=== PATIENT | male | born 1955 | race Caucasian/White ===

== ENCOUNTER 2019-01-03 08:58 | Inpatient (IN) | payer MEDICARE, OTHER ==
[~2019-01-03] VITALS: Ht 190.5 cm; Wt 131.7 kg
[~2019-01-03 08:58] MED LIST: AMLO10TA8 PO; AMOX1TAB11 PO; BUDE10.2 IH; BYSTOLIC5 MG PO; CLOP75TA PO; CRESTOR20 MG PO; METO-269 PO; TIOT18CA IH; VALS1TAB22 PO
[2019-01-03] MEDS ORDERED: ALBUTEROL SULFATE 2.5 MG/3 ML NEBU. NEB ONE (09:30)
[2019-01-03] MEDS ORDERED: IV NORMAL SALINE 1000ML BAG 1,000 ML IV ONE (09:30)
[2019-01-03] MEDS ORDERED: methylPREDNISolone SOD SUCC PF 125 MG/2 ML VIAL. IV ONE (09:30)
--- NOTE | 2019-01-03 09:51 | PHYS DOC ---
Past Medical History Past Medical History: CAD, COPD, High Cholesterol, Hypertension, Pneumonia, Other Additional Past Medical Histor: R SIDE POOR VASCULAR PERFUSION Past Surgical History: Other Additional Past Surgical Histo: CARDIAC STENT, AAA Additional Information: Nonsmoking Alcohol Use: None Drug Use: None Adult General Chief Complaint Chief Complaint: shortness of breath HPI HPI Patient is a 63 year old male who brought in by EMS because of shortness of breath. Patient states he had seasonal allergy and had intermittent episodes of dry cough and shortness of breath for the last 2 weeks that getting worse today. Patient states he had O2 sat of low 80s and in one 55% at home pulse oximeter and took 2 L of his CPAP oxygen with improvement of his oxygen to 80s. [place] [employer] and EMS gave patient a DuoNeb with improvement of O2 sat to less than 95%. Patient had O2 sat of 77% at arrival to ER with mild respiratory distress. Patient denies fever, chest pain, leg swelling. Patient had previous episodes of similar to retention and COPD exacerbation with hospitalization and having BiPAP without history of intubation. Review of Systems Review of Systems Constitutional: Denies fever or chills [] Eyes: Denies change in visual acuity, redness, or eye pain [] HENT: Denies nasal congestion or sore throat [] Respiratory: Cough and shortness of breath Cardiovascular: No additional information not addressed in HPI [] GI: Denies abdominal pain, nausea, vomiting, diarrhea [] : Denies dysuria or hematuria [] Musculoskeletal: Denies back pain or joint pain [] Integument: Denies rash or skin lesions [] Neurologic: Denies headache, focal weakness or sensory changes [] Endocrine: Denies polyuria or polydipsia [] All other systems were reviewed and found to be within normal limits, except as documented in this note. Current Medications Current Medications Current Medications Medications (Trade) Dose Ordered Sig/Carlie Start Time Stop Time Status Last Admin Dose Admin Albuterol Sulfate (Ventolin Neb Soln) 2.5 mg 1X ONCE 01/03/19 09:30 01/03/19 09:31 DC 01/03/19 09:34 2.5 MG Methylprednisolone Sodium Succinate (SOLU-Medrol 125MG VIAL) 125 mg 1X ONCE 01/03/19 09:30 01/03/19 09:31 DC 01/03/19 10:18 125 MG Sodium Chloride 1,000 ml @ 1,000 mls/hr 1X ONCE 01/03/19 09:30 01/03/19 10:29 DC 01/03/19 10:16 1,000 MLS/HR Allergies Allergies Allergies Coded Allergies Type Severity Reaction Last Updated Verified No Known Drug Allergies 02/01/16 No Physical Exam Physical Exam Constitutional: Well developed, well nourished, moderate distress, non-toxic appearance. [] HENT: Normocephalic, atraumatic, oropharynx dry, no oral exudates, nose normal. [] Eyes: PERRLA, EOMI, conjunctiva normal, no discharge. [] Neck: Normal range of motion, no tenderness, supple, no stridor. [] Cardiovascular: Tachycardia, no murmur [] Lungs & Thorax: Abdomen: Bowel sounds normal, soft, no tenderness, no masses, no pulsatile masses. [] Skin: Warm, dry, no erythema, no rash. [] Back: No tenderness, no CVA tenderness. [] Extremities: No tenderness, no cyanosis, no clubbing, ROM intact, trace edema. [] Neurologic: Alert and oriented X 3, normal motor function, normal sensory function, no focal deficits noted. [] Psychologic: Affect normal, judgement normal, mood normal. [] Current Patient Data Vital Signs Vital Signs Date Time Temp Pulse Resp B/P (MAP) Pulse Ox O2 Delivery O2 Flow Rate FiO2 01/03/19 09:46 60 22 118/56 (76) 87 Venturi Mask 15.0 01/03/19 09:15 99.3 99.3 Lab Values Laboratory Tests Test 01/03/19 09:30 01/03/19 10:00 White Blood Count 7.6 x10^3/uL (4.0-11.0) Red Blood Count 6.39 x10^6/uL (4.30-5.70) H Hemoglobin 16.5 g/dL (13.0-17.5) Hematocrit 51.3 % (39.0-53.0) Mean Corpuscular Volume 80 fL (79-100) Mean Corpuscular Hemoglobin 26 pg (25-35) Mean Corpuscular Hemoglobin Concent 32 g/dL (31-37) Red Cell Distribution Width 17.3 % (11.5-14.5) H Platelet Count 133 x10^3/uL (140-400) L Neutrophils (%) (Auto) 78 % (31-73) H Lymphocytes (%) (Auto) 10 % (24-48) L Monocytes (%) (Auto) 12 % (0-9) H Eosinophils (%) (Auto) 0 % (0-3) Basophils (%) (Auto) 1 % (0-3) Neutrophils # (Auto) 6.0 x10^3uL (1.8-7.7) Lymphocytes # (Auto) 0.7 x10^3/uL (1.0-4.8) L Monocytes # (Auto) 0.9 x10^3/uL (0.0-1.1) Eosinophils # (Auto) 0.0 x10^3/uL (0.0-0.7) Basophils # (Auto) 0.0 x10^3/uL (0.0-0.2) D-Dimer (Simin) 0.40 ug/mlFEU (0.00-0.50) Sodium Level 134 mmol/L (136-145) L Potassium Level 4.2 mmol/L (3.5-5.1) Chloride Level 95 mmol/L (98-107) L Carbon Dioxide Level 36 mmol/L (21-32) H Anion Gap 3 (6-14) L Blood Urea Nitrogen 15 mg/dL (8-26) Creatinine 0.8 mg/dL (0.7-1.3) Estimated GFR (Cockcroft-Gault) 97.0 BUN/Creatinine Ratio 19 (6-20) Glucose Level 109 mg/dL (70-99) H Lactic Acid Level 1.0 mmol/L (0.4-2.0) Calcium Level 8.4 mg/dL (8.5-10.1) L Total Bilirubin 0.7 mg/dL (0.2-1.0) Aspartate Amino Transferase (AST) 10 U/L (15-37) L Alanine Aminotransferase (ALT) 12 U/L (16-63) L Alkaline Phosphatase 56 U/L (46-116) Creatine Kinase 37 U/L (39-308) L Troponin I Quantitative 0.037 ng/mL (0.000-0.055) FQ-Str-B-Type Natriuretic Peptide 1338 pg/mL (0-124) H Total Protein 6.9 g/dL (6.4-8.2) Albumin 2.8 g/dL (3.4-5.0) L Albumin/Globulin Ratio 0.7 (1.0-1.7) L O2 Saturation 91 % (92-99) L Arterial Blood pH 7.37 (7.35-7.45) Arterial Blood pCO2 at Patient Temp 67 mmHg (35-46) *H Arterial Blood pO2 at Patient Temp 63 mmHg (65-108) L Arterial Blood HCO3 38 mmol/L (21-28) H Arterial Blood Base Excess 10 mmol/L (-3-3) H FiO2 50 Laboratory Tests 01/03/19 09:30 Laboratory Tests 01/03/19 09:30 EKG EKG EKG interpreted by me. EKG at 0 948 showed normal sinus rhythm at rate of 60, normal IN and QT intervals, PVCs, left atrial abnormalities, poor R-wave progress in anteroseptal leads, no acute ST and T-wave abnormalities Radiology/Procedures Radiology/Procedures [facility] [address] [place], [place] [id number] IMAGING REPORT Signed PATIENT: SOREN PASCUAL ACCOUNT: [id number] : 1955 LOCATION: ER AGE: 63 SEX: M EXAM STATUS: PRE ER ORD. PHYSICIAN: MARGUERITE LYNNE MD REASON: shortness of breath PROCEDURE: PORTABLE CHEST 1V AP portable chest radiograph 01/03/2019 Clinical History: Shortness of breath. An AP erect portable digital radiograph of the chest was obtained. Comparison study is dated 02/04/2016. The cardiac silhouette is mildly enlarged. The thoracic aorta is tortuous. Atherosclerotic calcification of the thoracic aorta is seen. Mild elevation of the right hemidiaphragm is unchanged. A patchy area of subsegmental atelectasis and/or infiltrate is seen involving the right lower lobe. The left lung is clear. No pneumothorax or pleural effusion is noted. Degenerative changes are seen involving the thoracic spine. IMPRESSION: Patchy right lower lobe subsegmental atelectasis and/or infiltrate. Electronically signed by: Anton Patrick MD (01/03/2019 9:52 AM) [id number] DICTATED and SIGNED BY: ANTON PATRICK MD DATE: 01/03/19 0952 Course & Med Decision Making Course & Med Decision Making Pertinent Labs and Imaging studies reviewed. (See chart for details) Evolution of patient in ER showed 63-year-old male patient with history of COPD brought in because of shortness of breath. Patient had hypoxia that improved with nonrebreathing mask and BiPAP. Chest x-ray showed small infiltration. Patient requiring admission for further evaluation and treatment. Discussed with Dr. Wahl who is in agreement with admission. Discussed findings and plan with patient and family, who acknowledge understanding and agreement. Dragon Disclaimer Dragon Disclaimer This electronic medical record was generated, in whole or in part, using a voice recognition dictation system. Departure Departure Impression: Primary Impression: Acute respiratory distress Additional Impressions: COPD exacerbation Hypoxemia CO2 retention CAP (community acquired pneumonia) Disposition: ADMITTED INPATIENT (@1052) Admitting Physician: Terrie Wahl (accepted admission at 1050) Condition: GUARDED Referrals: JORGE ALBERTO CORNELIUS MD (PCP) Critical Care Time Critical care time was65 minutes exclusive of procedures. Problem Qualifiers Additional Impressions: CAP (community acquired pneumonia) Laterality: unspecified laterality Qualified Codes: J18.9 - Pneumonia, unspecified organism MARGUERITE LYNNE MD Jan 03, 2019 09:51
--- NOTE | 2019-01-03 09:55 | RAD ---
AP portable chest radiograph 01/03/2019 Clinical History: Shortness of breath. An AP erect portable digital radiograph of the chest was obtained. Comparison study is dated 02/04/2016. The cardiac silhouette is mildly enlarged. The thoracic aorta is tortuous. Atherosclerotic calcification of the thoracic aorta is seen. Mild elevation of the right hemidiaphragm is unchanged. A patchy area of subsegmental atelectasis and/or infiltrate is seen involving the right lower lobe. The left lung is clear. No pneumothorax or pleural effusion is noted. Degenerative changes are seen involving the thoracic spine. IMPRESSION: Patchy right lower lobe subsegmental atelectasis and/or infiltrate. Electronically signed by: Anton Patrick MD (01/03/2019 9:52 AM) [id number]
[2019-01-03 10:02] LABS: CALCIUM 8.4 mg/dL (8.5-10.1); CREATININE 0.8 mg/dL (0.7-1.3); POTASSIUM 4.2 mmol/L (3.5-5.1)
[2019-01-03 10:08] LABS: ALBUMIN 2.8 g/dL (3.4-5.0); ALBUMIN/GLOBULIN RATIO 0.7 (1.0-1.7); BASO % 1 % (0-3); EOS % 0 % (0-3); HEMATOCRIT 51.3 % (39.0-53.0); HEMOGLOBIN 16.5 g/dL (13.0-17.5); LYMPH # 0.7 x10^3/uL (1.0-4.8); LYMPH % 10 % (24-48); MEAN CORPUSCULAR HEMOGLOBIN 26 pg (25-35); MEAN CORPUSCULAR HGB CONC 32 g/dL (31-37); MEAN CORPUSCULAR VOLUME 80 fL (79-100); MONO # 0.9 x10^3/uL (0.0-1.1); MONO % 12 % (0-9); NEUT % 78 % (31-73); PLATELET COUNT 133 x10^3/uL (140-400); RED BLOOD COUNT 6.39 x10^6/uL (4.30-5.70); RED CELL DISTRIBUTION WIDTH 17.3 % (11.5-14.5); TOTAL BILIRUBIN 0.7 mg/dL (0.2-1.0); TOTAL PROTEIN 6.9 g/dL (6.4-8.2); WHITE BLOOD COUNT 7.6 x10^3/uL (4.0-11.0)
[2019-01-03 10:12] LABS: BASE EXCESS ABG 10 mmol/L (-3-3); HCO3 ABG 38 mmol/L (21-28); PO2 ABG 63 mmHg (65-108); SAT O2 ABG 91 % (92-99)
[2019-01-03 10:13] LABS: FIO2 ABG 50; PCO2 ABG 67 mmHg (35-46)
[2019-01-03] MEDS: IV NORMAL SALINE 1000ML BAG 1,000 ML IV SCH ×2 (10:56→20:27)
[2019-01-03] MEDS ORDERED: AZITHRMYCN 500MG IVPB FOR OMNI 250 ML IV ONE (11:15)
[2019-01-03] MEDS ORDERED: cefTRIAXone IV Push 1 GM VIAL. IVP ONE (11:15)
[2019-01-03] MEDS ORDERED: guaiFENesin DM 200MG/20MG 10 ML SYRUP PO PRN (12:15)
[2019-01-03] MEDS: IPRATRPIUM/ALBUTEROL 0.5/2.5MG 3 ML NEBU. NEB SCH ×3 (12:31→19:31)
[2019-01-03 12:32] VITALS: BP 134/85
[2019-01-03] MEDS ORDERED: APIX5TAB PO (12:37)
[2019-01-03] MEDS ORDERED: ASPI-630 PO (12:37)
[2019-01-03] MEDS ORDERED: CRESTOR40 MG PO (12:37)
[2019-01-03] MEDS ORDERED: AMLO10TA8 PO (12:37)
[2019-01-03] MEDS ORDERED: LOSA1TAB22 PO (12:37)
--- NOTE | 2019-01-03 12:56 | EKG ---
[facility] [address] [place] [id number] Test Date: 2019-01-03 Test Time: 09:48:14 Pat Name: SOREN PASCUAL Department: Room: 648 1 Gender: M Private Inquiry Agent: : 1955 Requested By: MARGUERITE LYNNE Order Number: [id number] Reading MD: Khurram Kruger Measurements Intervals [place] Rate: 60 P: 41 WA: 214 QRS: 65 QRSD: 92 T: 61 QT: 408 QTc: 408 Interpretive Statements SINUS RHYTHM QRS(T) CONTOUR ABNORMALITY CONSIDER ANTEROSEPTAL MYOCARDIAL DAMAGE CONSIDER INFERIOR MYOCARDIAL DAMAGE Electronically Signed On 01-10-2019 11:37:01 CDT by Khurram Kruger
[2019-01-03] MEDS: LOSARTAN POTASSIUM 50 MG TABLET. PO SCH (13:00)
[2019-01-03] MEDS: METOPROLOL TART IMMED RELEASE 25 MG TABLET. PO SCH ×2 (13:00→20:25)
[2019-01-03] MEDS ORDERED: amLODIPine BESYLATE 10 MG TABLET PO SCH (13:00)
[2019-01-03] MEDS: hydroCHLOROthiazide 25 MG TABLET PO SCH (13:00)
--- NOTE | 2019-01-03 13:02 | PDOC1 ---
History and Physical Date of Admission Date of Admission DATE: 01/03/19 TIME: 12:58 Identification/Chief Complaint Chief Complaint SOA could not breathe Source Source: Caregiver, Chart review, Patient History of Present Illness History of Present Illness Very pleasant 63-year-old white male, quit smoking 10 years ago, previously was 1 or more than 1 pack a day. Known patient of Dr. Ruvalcaba. Known COPD with EVA and CPAP 2 Cms water at home. Comes in because of SOA, could not breathe. He thinks when he mowed the lawn yesterday that triggered his attack. He's not smoking anymore. No recent sick contacts or travels. 80% O2 sats by EMS and hypoxic at the ER. PCO2 67 with normal pH. Labs unremarkable except for mild hyponatremia 134. HAs rescue inhalers at home and ran out. Diminished breath sounds on auscultation but feeling much better. PCP Dr. Quinn Past Medical History Cardiovascular: CAD, HTN, Hyperlipidemia, Pulmonary hypertension, Other Pulmonary: Bronchitis, COPD Past Surgical History Past Surgical History: No pertinent history Family History Family History: Hypertension Social History Smoke: Quit ALCOHOL: none Drugs: None Current Problem List Problem List Problems Medical Problems: (1) Acute respiratory distress Status: Acute (2) CAP (community acquired pneumonia) Status: Acute (3) CO2 retention Status: Acute (4) COPD exacerbation Status: Acute (5) Hypoxemia Status: Acute Current Medications Current Medications Current Medications Albuterol Sulfate (Ventolin Neb Soln) 2.5 mg 1X ONCE NEB Last administered on 01/03/19at 09:34; Start 01/03/19 at 09:30; Stop 01/03/19 at 09:31; Status DC Methylprednisolone Sodium Succinate (SOLU-Medrol 125MG VIAL) 125 mg 1X ONCE IV Last administered on 01/03/19at 10:18; Start 01/03/19 at 09:30; Stop 01/03/19 at 09:31; Status DC Sodium Chloride 1,000 ml @ 1,000 mls/hr 1X ONCE IV Last administered on 01/03/19at 10:16; Start 01/03/19 at 09:30; Stop 01/03/19 at 10:29; Status DC Sodium Chloride 1,000 ml @ 150 mls/hr Q6H40M IV ; Start 01/03/19 at 10:56; Stop 01/04/19 at 10:55 Ceftriaxone Sodium (Rocephin) 1 gm 1X ONCE IVP Last administered on 01/03/19at 11:41; Start 01/03/19 at 11:15; Stop 01/03/19 at 11:16; Status DC Azithromycin 250 ml @ 250 mls/hr 1X ONCE IV Last administered on 01/03/19at 11:41; Start 01/03/19 at 11:15; Stop 01/03/19 at 12:14; Status DC Amlodipine Besylate (Norvasc) 5 mg DAILY PO ; Start 01/03/19 at 13:00 Metoprolol Tartrate (Lopressor) 25 mg BID PO ; Start 01/03/19 at 13:00 Atorvastatin Calcium (Lipitor) 80 mg QHS PO ; Start 01/03/19 at 21:00 Losartan Potassium (Cozaar) 100 mg DAILY PO ; Start 01/03/19 at 13:00 Albuterol/ Ipratropium (Duoneb) 3 ml RTQID NEB Last administered on 01/03/19at 12:31; Start 01/03/19 at 12:30 Benzonatate (Tessalon Perle) 100 mg [id number] PO ; Start 01/03/19 at 14:00 Guaifenesin (Robitussin Dm) 10 ml PRN Q6HRS PRN PO COUGH; Start 01/03/19 at 12:15 Hydrochlorothiazide (Hydrodiuril) 25 mg DAILY PO ; Start 01/03/19 at 13:00 Active Scripts Active Amox Tr-K Clv 875-125 Mg Tab (Amoxicillin/Potassium Clav) 1 Each Tablet 1 Tab PO BID Reported Aspirin 81 Mg Tab.chew 1 Tab PO DAILY Losartan-Hctz 100-25 Mg Tab (Losartan/Hydrochlorothiazide) 1 Each Tablet 1 Tab PO DAILY Eliquis (Apixaban) 5 Mg Tablet 5 Mg PO BID Crestor (Rosuvastatin Calcium) 40 Mg Tablet 1 Tab PO DAILY Amlodipine Besylate 10 Mg Tablet 10 Mg PO DAILY Allergies Allergies: Coded Allergies: No Known Drug Allergies (Unverified , 02/01/16) ROS Review of System As per history of present illness, the rest of ROS 14 point negative Physical Exam General: No acute distress HEENT: Atraumatic, PERRLA, EOMI Lungs: Normal air movement, Other (symmetrical chest expansion no crackles, minimal wheezing, diminished breath sounds) Heart: S1S2, RRR, no thrills, no rubs, no gallops, no murmurs Cardiovascular: S1, S2 Breasts: Normal, Rt breast nml w/o mass, Lt breast nml w/o mass, Nipples normal Abdomen: Normal bowel sounds, Soft, No tenderness, No hepatosplenomegaly, No masses Male Genitals Exam: normal genitalia, normal prostate Rectal Exam: not examined PELVIC: Nml ext genitalia Extremities: No clubbing, No cyanosis, No edema, Normal pulses, No tenderness/swelling Skin: No rashes, No breakdown, No significant lesion Neuro: Normal gait, Normal speech, Strength at 5/5 X4 ext, Normal tone, Sensation intact, Cranial nerves 3-12 NL, Reflexes 2+ Psych/Mental Status: Mental status NL, Mood NL Vitals Vitals Vital Signs Date Time Temp Pulse Resp B/P (MAP) Pulse Ox O2 Delivery O2 Flow Rate FiO2 01/03/19 12:32 98.4 61 20 134/85 (101) 85 Simple Mask 7.0 98.4 Labs Labs Laboratory Tests Test 01/03/19 09:30 01/03/19 10:00 White Blood Count 7.6 x10^3/uL (4.0-11.0) Red Blood Count 6.39 x10^6/uL (4.30-5.70) Hemoglobin 16.5 g/dL (13.0-17.5) Hematocrit 51.3 % (39.0-53.0) Mean Corpuscular Volume 80 fL (79-100) Mean Corpuscular Hemoglobin 26 pg (25-35) Mean Corpuscular Hemoglobin Concent 32 g/dL (31-37) Red Cell Distribution Width 17.3 % (11.5-14.5) Platelet Count 133 x10^3/uL (140-400) Neutrophils (%) (Auto) 78 % (31-73) Lymphocytes (%) (Auto) 10 % (24-48) Monocytes (%) (Auto) 12 % (0-9) Eosinophils (%) (Auto) 0 % (0-3) Basophils (%) (Auto) 1 % (0-3) Neutrophils # (Auto) 6.0 x10^3uL (1.8-7.7) Lymphocytes # (Auto) 0.7 x10^3/uL (1.0-4.8) Monocytes # (Auto) 0.9 x10^3/uL (0.0-1.1) Eosinophils # (Auto) 0.0 x10^3/uL (0.0-0.7) Basophils # (Auto) 0.0 x10^3/uL (0.0-0.2) D-Dimer (Simin) 0.40 ug/mlFEU (0.00-0.50) Sodium Level 134 mmol/L (136-145) Potassium Level 4.2 mmol/L (3.5-5.1) Chloride Level 95 mmol/L (98-107) Carbon Dioxide Level 36 mmol/L (21-32) Anion Gap 3 (6-14) Blood Urea Nitrogen 15 mg/dL (8-26) Creatinine 0.8 mg/dL (0.7-1.3) Estimated GFR (Cockcroft-Gault) 97.0 BUN/Creatinine Ratio 19 (6-20) Glucose Level 109 mg/dL (70-99) Lactic Acid Level 1.0 mmol/L (0.4-2.0) Calcium Level 8.4 mg/dL (8.5-10.1) Total Bilirubin 0.7 mg/dL (0.2-1.0) Aspartate Amino Transf (AST/SGOT) 10 U/L (15-37) Alanine Aminotransferase (ALT/SGPT) 12 U/L (16-63) Alkaline Phosphatase 56 U/L (46-116) Creatine Kinase 37 U/L (39-308) Troponin I Quantitative 0.037 ng/mL (0.000-0.055) ET-Cxd-X-Type Natriuretic Peptide 1338 pg/mL (0-124) Total Protein 6.9 g/dL (6.4-8.2) Albumin 2.8 g/dL (3.4-5.0) Albumin/Globulin Ratio 0.7 (1.0-1.7) O2 Saturation 91 % (92-99) Arterial Blood pH 7.37 (7.35-7.45) Arterial Blood pCO2 at Patient Temp 67 mmHg (35-46) Arterial Blood pO2 at Patient Temp 63 mmHg (65-108) Arterial Blood HCO3 38 mmol/L (21-28) Arterial Blood Base Excess 10 mmol/L (-3-3) FiO2 50 Laboratory Tests Test 01/03/19 09:30 01/03/19 10:00 White Blood Count 7.6 x10^3/uL (4.0-11.0) Red Blood Count 6.39 x10^6/uL (4.30-5.70) Hemoglobin 16.5 g/dL (13.0-17.5) Hematocrit 51.3 % (39.0-53.0) Mean Corpuscular Volume 80 fL (79-100) Mean Corpuscular Hemoglobin 26 pg (25-35) Mean Corpuscular Hemoglobin Concent 32 g/dL (31-37) Red Cell Distribution Width 17.3 % (11.5-14.5) Platelet Count 133 x10^3/uL (140-400) Neutrophils (%) (Auto) 78 % (31-73) Lymphocytes (%) (Auto) 10 % (24-48) Monocytes (%) (Auto) 12 % (0-9) Eosinophils (%) (Auto) 0 % (0-3) Basophils (%) (Auto) 1 % (0-3) Neutrophils # (Auto) 6.0 x10^3uL (1.8-7.7) Lymphocytes # (Auto) 0.7 x10^3/uL (1.0-4.8) Monocytes # (Auto) 0.9 x10^3/uL (0.0-1.1) Eosinophils # (Auto) 0.0 x10^3/uL (0.0-0.7) Basophils # (Auto) 0.0 x10^3/uL (0.0-0.2) D-Dimer (Simin) 0.40 ug/mlFEU (0.00-0.50) Sodium Level 134 mmol/L (136-145) Potassium Level 4.2 mmol/L (3.5-5.1) Chloride Level 95 mmol/L (98-107) Carbon Dioxide Level 36 mmol/L (21-32) Anion Gap 3 (6-14) Blood Urea Nitrogen 15 mg/dL (8-26) Creatinine 0.8 mg/dL (0.7-1.3) Estimated GFR (Cockcroft-Gault) 97.0 BUN/Creatinine Ratio 19 (6-20) Glucose Level 109 mg/dL (70-99) Lactic Acid Level 1.0 mmol/L (0.4-2.0) Calcium Level 8.4 mg/dL (8.5-10.1) Total Bilirubin 0.7 mg/dL (0.2-1.0) Aspartate Amino Transf (AST/SGOT) 10 U/L (15-37) Alanine Aminotransferase (ALT/SGPT) 12 U/L (16-63) Alkaline Phosphatase 56 U/L (46-116) Creatine Kinase 37 U/L (39-308) Troponin I Quantitative 0.037 ng/mL (0.000-0.055) LK-Xxr-Z-Type Natriuretic Peptide 1338 pg/mL (0-124) Total Protein 6.9 g/dL (6.4-8.2) Albumin 2.8 g/dL (3.4-5.0) Albumin/Globulin Ratio 0.7 (1.0-1.7) O2 Saturation 91 % (92-99) Arterial Blood pH 7.37 (7.35-7.45) Arterial Blood pCO2 at Patient Temp 67 mmHg (35-46) Arterial Blood pO2 at Patient Temp 63 mmHg (65-108) Arterial Blood HCO3 38 mmol/L (21-28) Arterial Blood Base Excess 10 mmol/L (-3-3) FiO2 50 VTE Prophylaxis Ordered VTE Prophylaxis Devices: Yes VTE Pharmacological Prophylaxi: Yes Assessment/Plan Assessment/Plan CO PD exacerbation Previous smoker quit 10 years ago Right lower lobe haziness vs atelectasis-treat with abx Mild hyponatremia 134 in a COPDer EVA on CPAP at night at home PLAN: ABX, cough nebs, DuoNeb's, steroids Pulmo consult Reconcile home meds agreeable to plan of care FULL code ASHLEY WALKER MD Jan 03, 2019 13:01
[2019-01-03] MEDS ORDERED: CARV12.511 PO (13:06)
[2019-01-03] MEDS ORDERED: cloNIDine HCL 0.1 MG TABLET PO PRN (13:15)
[2019-01-03] MEDS ORDERED: TEMAZEPAM 7.5 MG CAPSULE PO PRN (13:15)
[2019-01-03] MEDS: BENZONATATE 100 MG CAPSULE. PO SCH ×2 (14:00→20:28)
[2019-01-03] MEDS: methylPREDNISolone SOD SUCC PF 40 MG/ML VIAL. IV SCH ×2 (14:08→20:31)
[2019-01-03 15:00] VITALS: BP 117/53
[2019-01-03] MEDS: CARVEDILOL 12.5 MG TABLET. PO SCH (17:13)
[2019-01-03 19:39] VITALS: BP 124/51
[2019-01-03] MEDS: APIXABAN 5 MG TABLET. PO SCH (20:28)
[2019-01-03] MEDS: DOXYCYCLINE HYCLATE 100 MG TABLET PO SCH (20:29)
[2019-01-03] MEDS: MONTELUKAST SODIUM 10 MG TABLET. PO SCH (20:29)
[2019-01-03] MEDS: ATORVASTATIN CALCIUM 40 MG TABLET. PO SCH (20:29)
[2019-01-03 23:27] VITALS: BP 110/32
[2019-01-04 03:08] VITALS: BP 131/42
[2019-01-04] MEDS: IV NORMAL SALINE 1000ML BAG 1,000 ML IV SCH (04:41)
[2019-01-04] MEDS: methylPREDNISolone SOD SUCC PF 40 MG/ML VIAL. IV SCH ×3 (04:42→21:06)
[2019-01-04 07:00] VITALS: BP 141/70
[2019-01-04] MEDS: IPRATRPIUM/ALBUTEROL 0.5/2.5MG 3 ML NEBU. NEB SCH ×4 (07:42→20:03)
[2019-01-04 08:50] LABS: BASE EXCESS ABG 6 mmol/L (-3-3); HCO3 ABG 33 mmol/L (21-28); PCO2 ABG 58 mmHg (35-46); PO2 ABG 64 mmHg (65-108); SAT O2 ABG 92 % (92-99)
[2019-01-04 08:55] LABS: FIO2 ABG 40
[2019-01-04] MEDS ORDERED: NON FORMULARY ITEM (Rosuvastatin Calcium (Crestor) 1 TAB) PO SCH (09:00)
[2019-01-04] MEDS ORDERED: hydroCHLOROthiazide 25 MG TABLET PO SCH (09:00)
[2019-01-04] MEDS ORDERED: LOSARTAN POTASSIUM 50 MG TABLET. PO SCH (09:00)
[2019-01-04] MEDS: CARVEDILOL 12.5 MG TABLET. PO SCH ×2 (09:09→16:50)
[2019-01-04] MEDS: LOSARTAN POTASSIUM 50 MG TABLET. PO SCH (09:09)
[2019-01-04] MEDS: ASPIRIN CHEWABLE 81 MG TABLET. PO SCH (09:09)
[2019-01-04] MEDS: hydroCHLOROthiazide 25 MG TABLET PO SCH (09:10)
[2019-01-04] MEDS: METOPROLOL TART IMMED RELEASE 25 MG TABLET. PO SCH ×2 (09:10→21:05)
[2019-01-04] MEDS: APIXABAN 5 MG TABLET. PO SCH ×2 (09:10→21:05)
[2019-01-04] MEDS: DOXYCYCLINE HYCLATE 100 MG TABLET PO SCH ×2 (09:11→21:05)
[2019-01-04] MEDS: amLODIPine BESYLATE 10 MG TABLET PO SCH (09:11)
[2019-01-04] MEDS: BENZONATATE 100 MG CAPSULE. PO SCH ×4 (09:11→21:05)
--- NOTE | 2019-01-04 10:33 | PDOC ---
PULMONARY PROGRESS NOTES Subjective PT FEELS BETTER OFF BIPAP SINCE THIS AM Vitals Vital Signs Date Time Temp Pulse Resp B/P (MAP) Pulse Ox O2 Delivery O2 Flow Rate FiO2 01/04/19 09:11 68 141/70 01/04/19 07:42 94 Nasal Cannula 5.0 01/04/19 07:00 98.5 18 98.5 ROS: No Nausea, No Chest Pain, No Abdominal Pain, No Increase Cough General: Alert, Oriented X4, No acute distress Lungs: Crackles Cardiovascular: S1, S2 Abdomen: Soft, Non-tender Neuro Exam: Alert Extremities: No Edema Labs Laboratory Tests Test 01/03/19 09:30 01/03/19 10:00 01/04/19 08:40 White Blood Count 7.6 x10^3/uL (4.0-11.0) Red Blood Count 6.39 x10^6/uL (4.30-5.70) Hemoglobin 16.5 g/dL (13.0-17.5) Hematocrit 51.3 % (39.0-53.0) Mean Corpuscular Volume 80 fL (79-100) Mean Corpuscular Hemoglobin 26 pg (25-35) Mean Corpuscular Hemoglobin Concent 32 g/dL (31-37) Red Cell Distribution Width 17.3 % (11.5-14.5) Platelet Count 133 x10^3/uL (140-400) Neutrophils (%) (Auto) 78 % (31-73) Lymphocytes (%) (Auto) 10 % (24-48) Monocytes (%) (Auto) 12 % (0-9) Eosinophils (%) (Auto) 0 % (0-3) Basophils (%) (Auto) 1 % (0-3) Neutrophils # (Auto) 6.0 x10^3uL (1.8-7.7) Lymphocytes # (Auto) 0.7 x10^3/uL (1.0-4.8) Monocytes # (Auto) 0.9 x10^3/uL (0.0-1.1) Eosinophils # (Auto) 0.0 x10^3/uL (0.0-0.7) Basophils # (Auto) 0.0 x10^3/uL (0.0-0.2) D-Dimer (Simin) 0.40 ug/mlFEU (0.00-0.50) Sodium Level 134 mmol/L (136-145) Potassium Level 4.2 mmol/L (3.5-5.1) Chloride Level 95 mmol/L (98-107) Carbon Dioxide Level 36 mmol/L (21-32) Anion Gap 3 (6-14) Blood Urea Nitrogen 15 mg/dL (8-26) Creatinine 0.8 mg/dL (0.7-1.3) Estimated GFR (Cockcroft-Gault) 97.0 BUN/Creatinine Ratio 19 (6-20) Glucose Level 109 mg/dL (70-99) Lactic Acid Level 1.0 mmol/L (0.4-2.0) Calcium Level 8.4 mg/dL (8.5-10.1) Total Bilirubin 0.7 mg/dL (0.2-1.0) Aspartate Amino Transf (AST/SGOT) 10 U/L (15-37) Alanine Aminotransferase (ALT/SGPT) 12 U/L (16-63) Alkaline Phosphatase 56 U/L (46-116) Creatine Kinase 37 U/L (39-308) Troponin I Quantitative 0.037 ng/mL (0.000-0.055) QV-Ztm-M-Type Natriuretic Peptide 1338 pg/mL (0-124) Total Protein 6.9 g/dL (6.4-8.2) Albumin 2.8 g/dL (3.4-5.0) Albumin/Globulin Ratio 0.7 (1.0-1.7) O2 Saturation 91 % (92-99) 92 % (92-99) Arterial Blood pH 7.37 (7.35-7.45) 7.38 (7.35-7.45) Arterial Blood pCO2 at Patient Temp 67 mmHg (35-46) 58 mmHg (35-46) Arterial Blood pO2 at Patient Temp 63 mmHg (65-108) 64 mmHg (65-108) Arterial Blood HCO3 38 mmol/L (21-28) 33 mmol/L (21-28) Arterial Blood Base Excess 10 mmol/L (-3-3) 6 mmol/L (-3-3) FiO2 50 40 Laboratory Tests Test 01/04/19 08:40 O2 Saturation 92 % (92-99) Arterial Blood pH 7.38 (7.35-7.45) Arterial Blood pCO2 at Patient Temp 58 mmHg (35-46) Arterial Blood pO2 at Patient Temp 64 mmHg (65-108) Arterial Blood HCO3 33 mmol/L (21-28) Arterial Blood Base Excess 6 mmol/L (-3-3) FiO2 40 Medications Active Scripts Medications Dose Route/Sig Max Daily Dose Days Date Category Carvedilol (Carvedilol) 12.5 Mg Tablet 18.75 Mg PO BIDWMEALS 01/03/19 Reported Aspirin 81 Mg Tab.chew 1 Tab PO DAILY 01/03/19 Reported Losartan-Hctz 100-25 Mg Tab (Losartan/Hydrochlorothiazide) 1 Each Tablet 1 Tab PO DAILY 01/03/19 Reported Eliquis (Apixaban) 5 Mg Tablet 5 Mg PO BID 01/03/19 Reported Crestor (Rosuvastatin Calcium) 40 Mg Tablet 1 Tab PO DAILY 01/03/19 Reported Amlodipine Besylate 10 Mg Tablet 10 Mg PO DAILY 01/03/19 Reported Amox Tr-K Clv 875-125 Mg Tab (Amoxicillin/Potassium Clav) 1 Each Tablet 1 Tab PO BID 02/06/16 Rx Impression . IMPRESSION: 1. Msabr-wv-gilhocs hypoxemic hypercapnic respiratory failure. 2. Acute exacerbation of chronic obstructive pulmonary disease. 3. Possible pneumonia, right lower lobe, suspect Gram-negative. 4. Obesity. 5. Tobacco dependence, in remission. Plan . SPOKE WITH SW WILL CHECK INTO BIPAP AT HOME REVIEWED WITH PT AND WILL CONTINUE THE SAME FOR NOW 1. Continue BiPAP. 2. Rocephin and Zithromax. 3. Steroids. 4. Singulair for allergies. 5. DVT prophylaxis. WOLF MARIE MD Jan 04, 2019 10:33
--- NOTE | 2019-01-04 10:41 | CONS ---
DATE OF CONSULTATION: 01/03/2019 ATTENDING PHYSICIAN: Dr. Wahl. REASON FOR CONSULTATION: The patient seen in pulmonary consultation at the request of Dr. Wahl for noninvasive ventilation management. The patient currently on BiPAP. HISTORY OF PRESENT ILLNESS: The patient is a 63-year-old with a history of COPD, chronic hypercapnic respiratory failure presenting with increasing shortness of breath. Over the last 2 weeks, he has been getting worse. He was having difficult at times in the outdoors with allergies. O2 sat at home in low 80s. He normally wears CPAP with 2 liters of oxygen supplementation. The patient was transferred to the Emergency Department by EMS. Upon arrival, his O2 sat was 77%. An arterial blood gas was obtained revealing a pH of 7.37, PaCO2 of 67, pO2 of 63 on 50% FiO2. His white count was normal. Chest x-ray revealed right lower lobe infiltrate. I was asked to see him in consultation. No history given of nausea, vomiting, diarrhea. PAST MEDICAL HISTORY: Chronic hypercapnic respiratory failure; COPD; tobacco dependence, in remission; hyperlipidemia; hypertension; previous pneumonia; coronary artery disease with previous cardiac stenting. REVIEW OF SYSTEMS: As indicated in the history of present illness, otherwise a 10-point system was reviewed and negative. CONSTITUTIONAL: No fever or chills. EYES: No change in visual acuity. HEENT: No nasal congestion or sore throat. PULMONARY: As indicated above. CARDIOVASCULAR: No chest pain. No pressure. GASTROINTESTINAL: No nausea, vomiting, diarrhea. GENITOURINARY: No dysuria or frequency. MUSCULOSKELETAL: No localized muscle aches or joint pain. SKIN: No new skin rashes. NEUROLOGIC: No headaches, diplopia or blurred vision. PHYSICAL EXAMINATION: GENERAL: Obese individual currently on BiPAP, appears to be resting comfortably. HEENT: Eyes, the sclerae were nonicteric. NECK: Jugular venous distention could not be assessed secondary to body habitus. LUNGS: Poor airway flow with no wheezes. CARDIOVASCULAR: Regular rate and rhythm with S1, S2, no S3. ABDOMEN: Soft, nontender, nondistended. EXTREMITIES: No clubbing, cyanosis or edema. NEUROLOGIC: Not performed. The patient was awake. LABORATORY DATA: Arterial blood gas as indicated above. Electrolytes were noted. Sodium was low. Albumin was low upon admission. White count was noted. Chest x-ray as indicated above. IMPRESSION: 1. Cwsku-zf-yhkbxhq hypoxemic hypercapnic respiratory failure. 2. Acute exacerbation of chronic obstructive pulmonary disease. 3. Possible pneumonia, right lower lobe, suspect Gram-negative. 4. Obesity. 5. Tobacco dependence, in remission. PLAN: 1. Continue BiPAP. 2. Rocephin and Zithromax. 3. Steroids. 4. Singulair for allergies. 5. DVT prophylaxis. I do appreciate the privilege in sharing in the patient's care. WOLF MARIE MD DR: JANAY/shasta JOB#: [id number] / [id number]
[2019-01-04] MEDS: ANTI-COAG MONITOR BY PHARMACY. MC PRN (10:55)
[2019-01-04 11:00] VITALS: BP 126/43
--- NOTE | 2019-01-04 11:25 | PDOC ---
PROGRESS NOTES Chief Complaint Chief Complaint acute hypoxic respiratory faulure acute on chronic hypercarbic failure, COPD exacerbation hypoalbuinemia on admit, severe malnutrtion with BMI 35, x EVA on CPAP at night at home History of Present Illness History of Present Illness still on 5 liters NC, on RA at home hypoxia persists, but he feels more comfortable, does not need to be intubated unable to DC on current hypoxia, Vitals Vitals Vital Signs Date Time Temp Pulse Resp B/P (MAP) Pulse Ox O2 Delivery O2 Flow Rate FiO2 01/04/19 09:11 68 141/70 01/04/19 07:42 94 Nasal Cannula 5.0 01/04/19 07:00 98.5 18 98.5 Physical Exam General: Alert, Oriented X3, Cooperative, No acute distress Heart: Regular rate Lungs: Clear, Other Abdomen: Normal bowel sounds, Soft, No tenderness, No hepatosplenomegaly, No masses Extremities: No clubbing, No cyanosis, No edema, Normal pulses, No tenderness/swelling Skin: No rashes, No breakdown, No significant lesion Labs LABS Laboratory Tests Test 01/04/19 08:40 O2 Saturation 92 % (92-99) Arterial Blood pH 7.38 (7.35-7.45) Arterial Blood pCO2 at Patient Temp 58 mmHg (35-46) Arterial Blood pO2 at Patient Temp 64 mmHg (65-108) Arterial Blood HCO3 33 mmol/L (21-28) Arterial Blood Base Excess 6 mmol/L (-3-3) FiO2 40 Review of Systems Review of Systems no n.v.d Assessment and Plan Assessmemt and Plan Problems Medical Problems: (1) Acute respiratory distress Status: Acute (2) CAP (community acquired pneumonia) Status: Acute (3) CO2 retention Status: Acute (4) COPD exacerbation Status: Acute (5) Hypoxemia Status: Acute Comment Review of Relevant I have reviewed the following items ivan (where applicable) has been applied. Labs Laboratory Tests Test 01/03/19 09:30 01/03/19 10:00 01/04/19 08:40 White Blood Count 7.6 x10^3/uL (4.0-11.0) Red Blood Count 6.39 x10^6/uL (4.30-5.70) Hemoglobin 16.5 g/dL (13.0-17.5) Hematocrit 51.3 % (39.0-53.0) Mean Corpuscular Volume 80 fL (79-100) Mean Corpuscular Hemoglobin 26 pg (25-35) Mean Corpuscular Hemoglobin Concent 32 g/dL (31-37) Red Cell Distribution Width 17.3 % (11.5-14.5) Platelet Count 133 x10^3/uL (140-400) Neutrophils (%) (Auto) 78 % (31-73) Lymphocytes (%) (Auto) 10 % (24-48) Monocytes (%) (Auto) 12 % (0-9) Eosinophils (%) (Auto) 0 % (0-3) Basophils (%) (Auto) 1 % (0-3) Neutrophils # (Auto) 6.0 x10^3uL (1.8-7.7) Lymphocytes # (Auto) 0.7 x10^3/uL (1.0-4.8) Monocytes # (Auto) 0.9 x10^3/uL (0.0-1.1) Eosinophils # (Auto) 0.0 x10^3/uL (0.0-0.7) Basophils # (Auto) 0.0 x10^3/uL (0.0-0.2) D-Dimer (Simin) 0.40 ug/mlFEU (0.00-0.50) Sodium Level 134 mmol/L (136-145) Potassium Level 4.2 mmol/L (3.5-5.1) Chloride Level 95 mmol/L (98-107) Carbon Dioxide Level 36 mmol/L (21-32) Anion Gap 3 (6-14) Blood Urea Nitrogen 15 mg/dL (8-26) Creatinine 0.8 mg/dL (0.7-1.3) Estimated GFR (Cockcroft-Gault) 97.0 BUN/Creatinine Ratio 19 (6-20) Glucose Level 109 mg/dL (70-99) Lactic Acid Level 1.0 mmol/L (0.4-2.0) Calcium Level 8.4 mg/dL (8.5-10.1) Total Bilirubin 0.7 mg/dL (0.2-1.0) Aspartate Amino Transf (AST/SGOT) 10 U/L (15-37) Alanine Aminotransferase (ALT/SGPT) 12 U/L (16-63) Alkaline Phosphatase 56 U/L (46-116) Creatine Kinase 37 U/L (39-308) Troponin I Quantitative 0.037 ng/mL (0.000-0.055) WO-Rfr-H-Type Natriuretic Peptide 1338 pg/mL (0-124) Total Protein 6.9 g/dL (6.4-8.2) Albumin 2.8 g/dL (3.4-5.0) Albumin/Globulin Ratio 0.7 (1.0-1.7) O2 Saturation 91 % (92-99) 92 % (92-99) Arterial Blood pH 7.37 (7.35-7.45) 7.38 (7.35-7.45) Arterial Blood pCO2 at Patient Temp 67 mmHg (35-46) 58 mmHg (35-46) Arterial Blood pO2 at Patient Temp 63 mmHg (65-108) 64 mmHg (65-108) Arterial Blood HCO3 38 mmol/L (21-28) 33 mmol/L (21-28) Arterial Blood Base Excess 10 mmol/L (-3-3) 6 mmol/L (-3-3) FiO2 50 40 Laboratory Tests Test 01/04/19 08:40 O2 Saturation 92 % (92-99) Arterial Blood pH 7.38 (7.35-7.45) Arterial Blood pCO2 at Patient Temp 58 mmHg (35-46) Arterial Blood pO2 at Patient Temp 64 mmHg (65-108) Arterial Blood HCO3 33 mmol/L (21-28) Arterial Blood Base Excess 6 mmol/L (-3-3) FiO2 40 Medications Current Medications Albuterol Sulfate (Ventolin Neb Soln) 2.5 mg 1X ONCE NEB Last administered on 01/03/19at 09:34; Start 01/03/19 at 09:30; Stop 01/03/19 at 09:31; Status DC Methylprednisolone Sodium Succinate (SOLU-Medrol 125MG VIAL) 125 mg 1X ONCE IV Last administered on 01/03/19at 10:18; Start 01/03/19 at 09:30; Stop 01/03/19 at 09:31; Status DC Sodium Chloride 1,000 ml @ 1,000 mls/hr 1X ONCE IV Last administered on 01/03/19at 10:16; Start 01/03/19 at 09:30; Stop 01/03/19 at 10:29; Status DC Sodium Chloride 1,000 ml @ 120 mls/hr Q8H20M IV Last administered on 01/04/19 04:41; Start 01/03/19 at 10:56; Stop 01/04/19 at 10:55; Status DC Ceftriaxone Sodium (Rocephin) 1 gm 1X ONCE IVP Last administered on 01/03/19 11:41; Start 01/03/19 at 11:15; Stop 01/03/19 at 11:16; Status DC Azithromycin 250 ml @ 250 mls/hr 1X ONCE IV Last administered on 01/03/19 11:41; Start 01/03/19 at 11:15; Stop 01/03/19 at 12:14; Status DC Amlodipine Besylate (Norvasc) 5 mg DAILY PO ; Start 01/03/19 at 13:00; Stop 01/03/19 at 14:32; Status DC Metoprolol Tartrate (Lopressor) 25 mg BID PO Last administered on 01/04/19 09:10; Start 01/03/19 at 13:00 Atorvastatin Calcium (Lipitor) 80 mg QHS PO Last administered on 01/03/19 20:29; Start 01/03/19 at 21:00 Losartan Potassium (Cozaar) 100 mg DAILY PO Last administered on 01/04/19 09:09; Start 01/03/19 at 13:00 Albuterol/ Ipratropium (Duoneb) 3 ml RTQID NEB Last administered on 01/04/19 07:42; Start 01/03/19 at 12:30 Benzonatate (Tessalon Perle) 100 mg [id number] PO Last administered on 01/04/19 09:11; Start 01/03/19 at 14:00 Guaifenesin (Robitussin Dm) 10 ml PRN Q6HRS PRN PO COUGH; Start 01/03/19 at 12:15 Hydrochlorothiazide (Hydrodiuril) 25 mg DAILY PO Last administered on 01/04/19 09:10; Start 01/03/19 at 13:00 Methylprednisolone Sodium Succinate (SOLU-Medrol 40MG VIAL) 40 mg Q8HRS IV Last administered on 01/04/19 04:42; Start 01/03/19 at 14:00 Temazepam (Restoril) 7.5 mg PRN QHS PRN PO INSOMNIA; Start 01/03/19 at 13:15 Clonidine HCl (Catapres) 0.1 mg PRN Q1HR PRN PO HYPERTENSION, SEE COMMENTS; Start 01/03/19 at 13:15 Amlodipine Besylate (Norvasc) 10 mg DAILY PO Last administered on 01/04/19at 09:11; Start 01/04/19 at 09:00 Apixaban (Eliquis) 5 mg BID PO Last administered on 01/04/19at 09:10; Start at 21:00 Aspirin (Children'S Aspirin) 81 mg DAILY PO Last administered on 01/04/19at 09:09; Start 01/04/19 at 09:00 Carvedilol (Coreg) 18.75 mg BIDWMEALS PO Last administered on 01/04/19at 09:09; Start 01/03/19 at 17:00 Losartan Potassium (Cozaar) 100 mg DAILY PO ; Start 01/04/19 at 09:00; Status Cancel Non-Formulary Medication (Rosuvastatin Calcium (Crestor)) 1 tab DAILY PO ; Start 01/04/19 at 09:00; Status UNV Info (Anti-Coagulation Monitoring By Pharmacy) 1 each PRN DAILY PRN MC SEE COMMENTS Last administered on 01/04/19at 10:55; Start 01/03/19 at 14:45 Hydrochlorothiazide (Hydrodiuril) 25 mg DAILY PO ; Start 01/04/19 at 09:00; Status Cancel Montelukast Sodium (Singulair) 10 mg QHS PO Last administered on 01/03/19at 20:29; Start 01/03/19 at 21:00 Ceftriaxone Sodium (Rocephin) 1 gm Q24H IVP ; Start 01/04/19 at 11:00 Doxycycline Hyclate (Vibra-Tab) 100 mg BID PO Last administered on 01/04/19at 09:11; Start 01/03/19 at 21:00 Active Scripts Active Amox Tr-K Clv 875-125 Mg Tab (Amoxicillin/Potassium Clav) 1 Each Tablet 1 Tab PO BID Reported Carvedilol (Carvedilol) 12.5 Mg Tablet 18.75 Mg PO BIDWMEALS Aspirin 81 Mg Tab.chew 1 Tab PO DAILY Losartan-Hctz 100-25 Mg Tab (Losartan/Hydrochlorothiazide) 1 Each Tablet 1 Tab PO DAILY Eliquis (Apixaban) 5 Mg Tablet 5 Mg PO BID Crestor (Rosuvastatin Calcium) 40 Mg Tablet 1 Tab PO DAILY Amlodipine Besylate 10 Mg Tablet 10 Mg PO DAILY Vitals/I & O Vital Sign - Last 24 Hours 01/03/19 01/03/19 01/03/19 01/03/19 11:46 12:32 12:32 13:00 Temp 98.4 98.4 Pulse 58 61 61 Resp 20 20 B/P (MAP) 141/63 (89) 134/85 (101) 134/85 Pulse Ox 95 91 85 O2 Delivery BiPAP/CPAP BiPAP/CPAP Simple Mask O2 Flow Rate 7.0 01/03/19 01/03/19 01/03/19 01/03/19 13:00 13:00 15:00 15:32 Temp 98.2 98.2 Pulse 61 61 60 Resp 28 B/P (MAP) 134/85 134/85 117/53 (74) Pulse Ox 92 O2 Delivery BiPAP/CPAP Bi-pap 01/03/19 01/03/19 01/03/19 01/03/19 17:03 17:13 19:31 19:39 Temp 99.2 99.2 Pulse 61 63 Resp 16 B/P (MAP) 130/64 124/51 (75) Pulse Ox 97 92 92 O2 Delivery BiPAP/CPAP Nasal Cannula Nasal Cannula O2 Flow Rate 5.0 5.0 01/03/19 01/03/19 01/03/19 01/03/19 20:00 20:25 21:09 23:27 Temp 98.5 98.5 Pulse 63 63 Resp 20 B/P (MAP) 124/51 110/32 (58) Pulse Ox 94 94 O2 Delivery Nasal Cannula BiPAP/CPAP BiPAP/CPAP O2 Flow Rate 5.0 01/04/19 01/04/19 01/04/19 01/04/19 00:13 02:34 03:08 04:55 Temp 98.2 98.2 Pulse 64 Resp 20 B/P (MAP) 131/42 (71) Pulse Ox 94 94 91 94 O2 Delivery BiPAP/CPAP BiPAP/CPAP BiPAP/CPAP BiPAP/CPAP 01/04/19 01/04/19 01/04/19 01/04/19 07:00 07:42 09:09 09:09 Temp 98.5 98.5 Pulse 68 68 68 Resp 18 B/P (MAP) 141/70 (93) 141/70 141/70 Pulse Ox 97 94 O2 Delivery Nasal Cannula Nasal Cannula O2 Flow Rate 5.0 5.0 01/04/19 01/04/19 09:10 09:11 Pulse 68 68 B/P (MAP) 141/70 141/70 Intake and Output 01/03/19 01/03/19 01/04/19 14:59 22:59 06:59 Intake Total 1100 ml 1810 ml Output Total 0 ml Balance 1100 ml 1810 ml 0 ml CANDE WANG MD Jan 04, 2019 11:25
[2019-01-04] MEDS: cefTRIAXone IV Push 1 GM VIAL. IVP SCH (12:00)
[2019-01-04 15:00] VITALS: BP 135/53
--- NOTE | 2019-01-04 16:00 | NUR ---
SW following pt for anticipated dc needs. Chart reviewed and DW Physician. Pt is independent with ADL's and has home 02 through [facility]. SW spoke with a [facility] rep regarding Bipap and they reported, Rx and Sleep study is needed. Physician notified.
[2019-01-04 19:00] VITALS: BP 129/47
[2019-01-04] MEDS: ATORVASTATIN CALCIUM 40 MG TABLET. PO SCH (21:05)
[2019-01-04] MEDS: MONTELUKAST SODIUM 10 MG TABLET. PO SCH (21:05)
[2019-01-04] MEDS: LACTOBACILLUS RHAMNOSUS GG 1 CAPSULE. PO SCH (21:05)
[2019-01-04 23:00] VITALS: BP 131/66
[2019-01-05 03:00] VITALS: BP 129/51
[2019-01-05] MEDS: methylPREDNISolone SOD SUCC PF 40 MG/ML VIAL. IV SCH (06:20)
[2019-01-05 07:00] VITALS: BP 151/65
[2019-01-05] MEDS: IPRATRPIUM/ALBUTEROL 0.5/2.5MG 3 ML NEBU. NEB SCH ×2 (07:03→10:32)
[2019-01-05] MEDS: CARVEDILOL 12.5 MG TABLET. PO SCH (08:51)
[2019-01-05] MEDS: ASPIRIN CHEWABLE 81 MG TABLET. PO SCH (08:52)
[2019-01-05] MEDS: LOSARTAN POTASSIUM 50 MG TABLET. PO SCH (08:53)
[2019-01-05] MEDS: hydroCHLOROthiazide 25 MG TABLET PO SCH (08:54)
[2019-01-05] MEDS: APIXABAN 5 MG TABLET. PO SCH (08:54)
[2019-01-05] MEDS: LACTOBACILLUS RHAMNOSUS GG 1 CAPSULE. PO SCH (08:54)
[2019-01-05] MEDS: METOPROLOL TART IMMED RELEASE 25 MG TABLET. PO SCH (08:55)
[2019-01-05] MEDS: amLODIPine BESYLATE 10 MG TABLET PO SCH (08:56)
[2019-01-05] MEDS: BENZONATATE 100 MG CAPSULE. PO SCH (08:56)
[2019-01-05] MEDS: DOXYCYCLINE HYCLATE 100 MG TABLET PO SCH (08:56)
[2019-01-05] MEDS ORDERED: IPRA3AMP29 NEB (10:04)
[2019-01-05] MEDS ORDERED: MONT10TA9 PO (10:04)
[2019-01-05] MEDS ORDERED: DOXY100T PO (10:04)
[2019-01-05] MEDS ORDERED: GUAI5SYR PO (10:04)
--- NOTE | 2019-01-05 10:09 | SNU/HH DC ---
DISCHARGE WITH HOME HEALTH DISCHARGE INFORMATION: Discharge Date: Jan 05, 2019 Final Diagnosis: Problems Medical Problems: (1) Acute respiratory distress Status: Acute (2) CAP (community acquired pneumonia) Status: Acute (3) CO2 retention Status: Acute (4) COPD exacerbation Status: Acute (5) Hypoxemia Status: Acute Condition on Discharge: Stable CODE STATUS: Code Status: Full HOME HEALTH: Face to Face: I certify this patient is under my care and that I, or a nurse practitioner or physician's team assistant working with me, had a face to face encounter that meets the physician face to face encounter requirements with this patient on 01/05 Medical Complications: COPD Detention For: Assess Cardiopulm Status (respiratory therapy would be sufficient, ) RN For Eval/Treatment: No Pt Meets Homebound Status: Limited distance walking, Other: (respiratory distress) POST DISCHARGE ORDERS: Activity Instructions for Disc: Activity as tolerated Weight Bearing Status after Di: No restrictions DIET AFTER DISCHARGE: Cardiac FOLLOW-UP: Follow up with: issac Barrientos, 1 week TREATMENT/EQUIPMENT ORDERS: Discharge Respiratory Equipmen: Oxygen, Nebulizer CERTIFICATION STATEMENT: Certification Statement: Certification Statement: Based on the above finding, I certify that this patient is confined to the home and needs intermittent senior care care, physical therapy and/or speech therapy, or continues to need occupational therapy.~ This patient is under my care, and I have initiated the establishment of the plan of care.~ This patient will be followed by myself or a community physician who will periodically review the plan of care. Home Meds Active Scripts Montelukast Sodium (MONTELUKAST SODIUM TABLET) 10 Mg Tablet, 10 MG PO QHS PRN for ALLERGIES, #30 TAB Prov:CANDE WANG MD 01/05/19 Ipratropium/Albuterol Sulfate (DUONEB 0.5-3(2.5) MG/3 ML) 3 Ml Ampul.neb, 3 ML NEB RTQID PRN for shortness of breath, #40 EACH Prov:CANDE WANG MD 01/05/19 Guaifenesin/Dextromethorphan (GUAIFENESIN DM SYRUP) 5 Ml Syrup, 10 ML PO PRN Q6HRS PRN for COUGH, #20 MISC Prov:CANDE WANG MD 01/05/19 Doxycycline Hyclate (DOXYCYCLINE HYCLATE) 100 Mg Tablet, 100 MG PO BID for bronc htitis, #14 TAB Prov:CANDE WANG MD 01/05/19 Reported Medications Carvedilol (CARVEDILOL ) 12.5 Mg Tablet, 18.75 MG PO BIDWMEALS for CARDIAC, TAB 01/03/19 Aspirin (ASPIRIN) 81 Mg Tab.chew, 1 TAB PO DAILY for AFIB HX, #30 TAB 3 Refills 01/03/19 Losartan/Hydrochlorothiazide (LOSARTAN-HCTZ 100-25 MG TAB) 1 Each Tablet, 1 TAB PO DAILY for HTN, #30 TAB 5 Refills 01/03/19 Apixaban (ELIQUIS) 5 Mg Tablet, 5 MG PO BID for AFIB HX, TAB 01/03/19 Rosuvastatin Calcium (CRESTOR) 40 Mg Tablet, 1 TAB PO DAILY for HLD, #30 TAB 5 Refills 01/03/19 Amlodipine Besylate (AMLODIPINE BESYLATE) 10 Mg Tablet, 10 MG PO DAILY for HTN, TAB 01/03/19 Discontinued Reported Medications Nebivolol Hcl (BYSTOLIC) 5 Mg Tablet, 5 MG PO DAILY, TAB 02/06/16 Rosuvastatin Calcium (CRESTOR) 20 Mg Tablet, 1 TAB PO DAILY, #30 TAB 5 Refills 02/01/16 Valsartan/Hydrochlorothiazide (DIOVAN HCT 320-25 MG TABLET) 1 Each Tablet, 1 TAB PO DAILY, #30 TAB 5 Refills 02/01/16 Amlodipine Besylate (AMLODIPINE BESYLATE) 10 Mg Tablet, 5 MG PO DAILY, TAB 02/01/16 Discontinued Scripts Amoxicillin/Potassium Clav (AMOX TR-K CLV 875-125 MG TAB) 1 Each Tablet, 1 TAB PO BID, #10 TAB Prov:GRAEME PLEITEZ MD 02/06/16 CANDE WANG MD Jan 05, 2019 10:09
[2019-01-05 11:00] VITALS: BP 138/71
--- NOTE | 2019-01-05 11:45 | PDOC ---
PULMONARY PROGRESS NOTES Subjective PT FEELS BETTER OFF BIPAP SINCE THIS AM Vitals Vital Signs Date Time Temp Pulse Resp B/P (MAP) Pulse Ox O2 Delivery O2 Flow Rate FiO2 01/05/19 11:00 97.5 47 14 138/71 (93) 94 Room Air 97.5 01/05/19 08:00 2.0 ROS: No Nausea, No Chest Pain, No Abdominal Pain, No Increase Cough General: Alert, Oriented X4, No acute distress Lungs: Crackles Cardiovascular: S1, S2 Abdomen: Soft, Non-tender Neuro Exam: Alert Extremities: No Edema Labs Laboratory Tests Test 01/04/19 08:40 O2 Saturation 92 % (92-99) Arterial Blood pH 7.38 (7.35-7.45) Arterial Blood pCO2 at Patient Temp 58 mmHg (35-46) Arterial Blood pO2 at Patient Temp 64 mmHg (65-108) Arterial Blood HCO3 33 mmol/L (21-28) Arterial Blood Base Excess 6 mmol/L (-3-3) FiO2 40 Medications Active Scripts Medications Dose Route/Sig Max Daily Dose Days Date Category Carvedilol (Carvedilol) 12.5 Mg Tablet 18.75 Mg PO BIDWMEALS 01/03/19 Reported Aspirin 81 Mg Tab.chew 1 Tab PO DAILY 01/03/19 Reported Losartan-Hctz 100-25 Mg Tab (Losartan/Hydrochlorothiazide) 1 Each Tablet 1 Tab PO DAILY 01/03/19 Reported Eliquis (Apixaban) 5 Mg Tablet 5 Mg PO BID 01/03/19 Reported Crestor (Rosuvastatin Calcium) 40 Mg Tablet 1 Tab PO DAILY 01/03/19 Reported Amlodipine Besylate 10 Mg Tablet 10 Mg PO DAILY 01/03/19 Reported Amox Tr-K Clv 875-125 Mg Tab (Amoxicillin/Potassium Clav) 1 Each Tablet 1 Tab PO BID 02/06/16 Rx Impression . IMPRESSION: 1. Cziof-pb-xkrftky hypoxemic hypercapnic respiratory failure. 2. Acute exacerbation of chronic obstructive pulmonary disease. 3. Possible pneumonia, right lower lobe, suspect Gram-negative. 4. Obesity. 5. Tobacco dependence, in remission. Plan . SPOKE WITH SW WILL CHECK INTO BIPAP AT HOME REVIEWED WITH PT AND WILL CONTINUE THE SAME FOR NOW 1. Continue BiPAP. 2. Rocephin and Zithromax. 3. Steroids. 4. Singulair for allergies. 5. DVT prophylaxis. WOLF MARIE MD Jan 05, 2019 11:45
[2019-01-05] MEDS: cefTRIAXone IV Push 1 GM VIAL. IVP SCH (11:55)
--- NOTE | 2019-01-05 12:11 | NUR ---
SW following. Spoke with pt and regarding HH and they declined. RN aware.
[2019-01-05] MEDS: ANTI-COAG MONITOR BY PHARMACY. MC PRN (12:49)
--- NOTE | 2019-01-05 12:58 | NUR ---
Discharge teaching provided written and verbal to pt,understanding verbalized. Dismissed to home with all belongings accompanied by his . Transported to exit per w/c at 1222.
--- NOTE | 2019-01-05 19:58 | PDOC3 ---
Discharge Summary Visit Information Date of Admission: Jan 03, 2019 Date of Discharge: Jan 05, 2019 Final Diagnosis acute hypoxic respiratory faulure acute on chronic hypercarbic failure, COPD exacerbation hypoalbuinemia on admit, severe malnutrtion with BMI 35, x EVA on CPAP at night at home Vitals Vitals Problems Medical Problems: (1) Acute respiratory distress Status: Acute (2) CAP (community acquired pneumonia) Status: Acute (3) CO2 retention Status: Acute (4) COPD exacerbation Status: Acute (5) Hypoxemia Status: Acute Brief Hospital Course Allergies Allergies Coded Allergies Type Severity Reaction Last Updated Verified No Known Drug Allergies 02/01/16 No Vital Signs Vital Signs Date Time Temp Pulse Resp B/P (MAP) Pulse Ox O2 Delivery O2 Flow Rate FiO2 01/05/19 11:00 97.5 47 14 138/71 (93) 94 Room Air 97.5 01/05/19 08:00 2.0 Lab Results Laboratory Tests Test 01/04/19 08:40 O2 Saturation 92 % (92-99) Arterial Blood pH 7.38 (7.35-7.45) Arterial Blood pCO2 at Patient Temp 58 mmHg (35-46) Arterial Blood pO2 at Patient Temp 64 mmHg (65-108) Arterial Blood HCO3 33 mmol/L (21-28) Arterial Blood Base Excess 6 mmol/L (-3-3) FiO2 40 Brief Hospital Course Mr. Farnsworth is a 63 old admti with cough and dyspnea and hypoxia and resp distress on 01.04, still on 5 liters NC, on RA at home but improved rapidly, on RA on 01/05 for DC home, f/u pulm clinic for EVA Discharge Information Condition at Discharge: Improved Follow Up: Weeks Disposition/Orders: D/C to Home Scheduled Amlodipine Besylate (Amlodipine Besylate) 10 Mg Tablet, 10 MG PO DAILY for HTN, (Reported) Entered as Reported by: JUAN JOSÉ MARIN on 01/03/19 1237 Last Taken: Unknown Dose on 01/03/19 Last Action: Continued on 01/03/191425 by ASHLEY WALKER Apixaban (Eliquis) 5 Mg Tablet, 5 MG PO BID for AFIB HX, (Reported) Entered as Reported by: JUAN JOSÉ MARIN on 01/03/19 1237 Last Taken: Unknown Dose on 01/03/19 Last Action: Continued on 01/03/191425 by ASHLEY WALKER Aspirin (Aspirin) 81 Mg Tab.chew, 1 TAB PO DAILY for AFIB HX, #30 Ref 3 (Reported) Entered as Reported by: JUAN JOSÉ MARIN on 01/03/19 1237 Last Taken: Unknown Dose on 01/03/19 Last Action: Continued on 01/03/191425 by ASHLEY WALKER Carvedilol (Carvedilol ) 12.5 Mg Tablet, 18.75 MG PO BIDWMEALS for CARDIAC, (Reported) Entered as Reported by: JUAN JOSÉ MARIN on 01/03/19 1306 Last Taken: Unknown Dose on 01/03/19 Last Action: Continued on 01/03/191425 by ASHLEY WALKER Doxycycline Hyclate (Doxycycline Hyclate) 100 Mg Tablet, 100 MG PO BID for bronchtitis, #14 Prescribed by: CANDE WANG on 01/05/19 1004 Losartan/Hydrochlorothiazide (Losartan-Hctz 100-25 Mg Tab) 1 Each Tablet, 1 TAB PO DAILY for HTN, #30 Ref 5 (Reported) Entered as Reported by: JUAN JOSÉ MARIN on 01/03/19 1237 Last Taken: Unknown Dose on 01/03/19 Last Action: Converted on 01/03/19 1 426 by ASHLEY WALKER Rosuvastatin Calcium (Crestor) 40 Mg Tablet, 1 TAB PO DAILY for HLD, #30 Ref 5 (Reported) Entered as Reported by: JUAN JOSÉ MARIN on 01/03/19 1237 Last Taken: Unknown Dose on 01/02/19 Last Action: Converted on 01/03/191425 by ASHLEY WALKER Scheduled PRN Guaifenesin/Dextromethorphan (Guaifenesin Dm Syrup) 5 Ml Syrup, 10 ML PO PRN Q6HRS PRN for COUGH, #20 Prescribed by: CANDE WANG on 01/05/19 1004 Ipratropium/Albuterol Sulfate (Duoneb 0.5-3(2.5) Mg/3 Ml) 3 Ml Ampul.neb, 3 ML NEB RTQID PRN for shortness of breath, #40 Prescribed by: CANDE WANG on 01/05/19 1004 Montelukast Sodium (Montelukast Sodium Tablet) 10 Mg Tablet, 10 MG PO QHS PRN for ALLERGIES, #30 Prescribed by: CANDE WANG on 01/05/19 1004 Discontinued Medications Amlodipine Besylate (Amlodipine Besylate) 10 Mg Tablet, 5 MG PO DAILY, (Repo rted) Entered as Reported by: GAGANDEEP YEE on 02/01/16 174 Last Action: Discontinued on 01/03/19 1238 by JUAN JOSÉ MARIN Amoxicillin/Potassium Clav (Amox Tr-K Clv 875-125 Mg Tab) 1 Each Tablet, 1 TAB PO BID, #10 Prescribed by: GRAEME PLEITEZ MD on 02/06/16 1228 Last Action: HELD on 01/03/19 1211 by ASHLEY WALKER Nebivolol Hcl (Bystolic) 5 Mg Tablet, 5 MG PO DAILY, (Reported) Entered as Reported by: CRISTOPHER LUGO RN on 02/06/16 1345 Last Action: Discontinued on 01/03/19 1238 by JUAN JOSÉ MARIN Rosuvastatin Calcium (Crestor) 20 Mg Tablet, 1 TAB PO DAILY, #30 Ref 5 (Reported) Entered as Reported by: JUSTO ZHANG on 02/01/16 175 Last Action: Discontinued on 01/03/19 1238 by JUAN JOSÉ MARIN Valsartan/Hydrochlorothiazide (Diovan Hct 320-25 Mg Tablet) 1 Each Tablet, 1 TAB PO DAILY, #30 Ref 5 (Reported) Entered as Reported by: GAGANDEEP YEE on 02/01/161741 Last Action: Discontinued on 01/03/19 1238 by JUAN JOSÉ MARIN Patient Instructions Patient Instructions > 30 min face to face discussion and coordination of care CANDE WANG MD Jan 05, 2019 19:58
== END 2019-01-05 12:22 | disposition home or self-care (01) | DRG 193 ==
LOC: ER 08:58 → 6 SOUTH 10:10
PROVIDERS: ADMIT Internal Medicine; ATTEND Internal Medicine
PROC: 5A09357 Assistance with Respiratory Ventilation, Less than 24 Consecutive Hours, Continuous Positive Airway Pressure (ICD-10-PCS; principal; 2019-01-03)
PROC: 5A09357 Assistance with Respiratory Ventilation, Less than 24 Consecutive Hours, Continuous Positive Airway Pressure (ICD-10-PCS; 2019-01-04)
PROC: 5A09357 Assistance with Respiratory Ventilation, Less than 24 Consecutive Hours, Continuous Positive Airway Pressure (ICD-10-PCS; 2019-01-05)
DX: J18.9 Pneumonia, unspecified organism (principal); J96.22 Acute and chronic respiratory failure with hypercapnia; J96.21 Acute and chronic respiratory failure with hypoxia; E43 Unspecified severe protein-calorie malnutrition; J44.1 Chronic obstructive pulmonary disease with (acute) exacerbation; E87.1 Hypo-osmolality and hyponatremia; J44.0 Chronic obstructive pulmonary disease with (acute) lower respiratory infection; E87.2 Acidosis; I25.10 Atherosclerotic heart disease of native coronary artery without angina pectoris; I10 Essential (primary) hypertension; E78.00 Pure hypercholesterolemia, unspecified; I27.20 Pulmonary hypertension, unspecified; E78.5 Hyperlipidemia, unspecified; F17.201 Nicotine dependence, unspecified, in remission; E66.9 Obesity, unspecified; G47.33 Obstructive sleep apnea (adult) (pediatric); Z95.5 Presence of coronary angioplasty implant and graft; Z82.49 Family history of ischemic heart disease and other diseases of the circulatory system; Z68.35 Body mass index [BMI] 35.0-35.9, adult
CPT/HCPCS: 36415; 36600; 71045; 80053; 82550; 82805; 83605; 83880; 84484; 85025; 85379; 87040; 93005; 94640; 94660; 94760; 96361; 96365; 96375; 99291; J0456; J0696; J2920; J2930; J7030; J7613; J7620

== ENCOUNTER → 2019-02-19 | Outpatient (CLI) | payer MEDICARE ==
[~2019-02-19] MED LIST changes: +APIX5TAB PO; +ASPI-630 PO; +CARV12.511 PO; +CRESTOR40 MG PO; +DOXY100T PO; +GUAI5SYR PO; +IPRA3AMP29 NEB; +LOSA1TAB22 PO; +MONT10TA49 PO
--- NOTE | 2019-02-20 18:08 | SLEEP ---
DATE OF STUDY: 02/19/2019 POLYSOMNOGRAM REPORT OBJECTIVE: The patient is a 63-year-old male with observed apnea and snoring. There was a previous sleep study on 05/14/2013 positive for obstructive sleep apnea and the patient is currently on 9 cm of CPAP with oxygen 2 liters. Height 6 feet 4 inches, weight 260 pounds, body mass index 42. INTERPRETATION: Sleep architecture is characterized by sleep efficiency at 57% across the 6.9 hours of recording time. There is an absence of slow-wave sleep and a decreased amount of REM sleep. Sleep onset latency is 40 minutes. Respiratory monitoring counts a total of 56 events for an apnea-hypopnea index of 14.4 events per hour of sleep. Minimum oxygen saturation is 60%. This study is performed on room air without CPAP. The patient slept in the supine position and adamantly refused sleep aid. Periodic limb movements of sleep are not recorded. Cardiac monitoring shows premature atrial contractions. IMPRESSION: Abnormal polysomnogram showing obstructive sleep apnea and hypopnea. RECOMMENDATIONS: 1. The patient could be returned for further CPAP titration study, but given his difficulty with insomnia, an alternative treatment would be use of variable CPAP or BiPAP machine in his home. 2. He should also pursue weight loss and avoid sedatives and alcohol. Thank you for letting us help with the patient's care. TANIA RAMOS MD DR: ADAMA/shasta JOB#: [id number] / [id number] JORGE ALBERTO Hill MD, AMAN MD
== END | disposition home or self-care (01) ==
LOC: SLPLAB 18:48
PROVIDERS: ATTEND Internal Medicine Critical Care Medicine
DX: G47.33 Obstructive sleep apnea (adult) (pediatric) (principal)
CPT/HCPCS: 95810

== ENCOUNTER → 2019-03-07 | Outpatient (CLI) | payer MEDICARE ==
--- NOTE | 2019-03-08 11:41 | SLEEP ---
DATE OF STUDY: 03/07/2019 ATTENDING PHYSICIAN: Jimmy Quinn MD. The patient is 63 years old who weighs 270 pounds with a BMI of 33. The patient had a recent diagnostic study on 02/19/2019 and was found to have severe EVA at an AHI of 66 per hour along with nocturnal hypoxia. The patient was referred back for CPAP titration study. During the night study, the patient spent 375 minutes in bed and slept for 348 minutes with a sleep efficiency of 93%. Sleep latency was 5 minutes, with a REM latency of 67 minutes. Overall, sleep architecture showed increased stage 1 and stage 2 sleep, absent slow wave and reduced REM sleep, which was 9% of the total sleep time. EKG monitoring revealed normal sinus rhythm. No sustained arrhythmias were observed. Occasional PACs seen. No clinically significant PLMS observed. The patient was started on CPAP at 9 cm water and titrated up to 11 cm water. However, the patient did very well at CPAP at 9 cm water. The patient had 244 minutes of sleep. The patient's AHI was reduced to 3.4 per hour. The patient had lateral REM sleep. The patient's oxygen saturations did remain in the mid to low 80s, with the lowest level of 71%. The patient would benefit from 2 liters of oxygen with the CPAP. IMPRESSION: 1. Severe sleep apnea diagnosed by previous sleep study. 2. Persistent nocturnal hypoxia despite elimination of respiratory events, likely related to hypoventilation. 3. No clinically significant periodic limb movements. RECOMMENDATIONS: 1. CPAP at 9 cm water with 2 liters of supplemental oxygen should be used on a nightly basis. 2. Follow up in 4-6 weeks to assess compliance with CPAP and to document clinical improvement. 3. Weight loss is strongly advised. 4. Avoid CONFER[employer] SERVICES COORDIN[employer] depressants. 5. Cautioned regarding driving or operating heavy machinery until symptoms of sleep apnea resolve with the use of CPAP. LORENZA GIBSON MD DR: CHRISTIANE/shasta JOB#: [id number] / [id number] JIMMY Hill MD
== END | disposition home or self-care (01) ==
LOC: RT 18:46
PROVIDERS: ATTEND Internal Medicine Critical Care Medicine
DX: G47.33 Obstructive sleep apnea (adult) (pediatric) (principal); G47.34 Idiopathic sleep related nonobstructive alveolar hypoventilation
CPT/HCPCS: 95811

== ENCOUNTER 2019-07-21 08:58 | Inpatient (IN) | payer MEDICARE ==
[2019-07-21] VITALS (16 sets, daily range): BP systolic 140–179; BP diastolic 53–83
[~2019-07-21] VITALS: Ht 188 cm; Wt 119.0 kg
[2019-07-21 09:26] LABS: BASE EXCESS ABG 7 mmol/L (-3-3); HCO3 ABG 39 mmol/L (21-28); PO2 ABG 55 mmHg (65-108); SAT O2 ABG 86 % (92-99)
--- NOTE | 2019-07-21 09:26 | PDOC1 ---
History and Physical Date of Admission Date of Admission DATE: 07/21/19 TIME: 09:26 Identification/Chief Complaint Chief Complaint SEEN IN ER ON BIPAP, 63 year old male presenting with chief complaint of shortness of breath cough productive of green-yellow sputum feels feverish recent trip to [place] just got back has a history of COPD on home oxygen at night has required BiPAP in the past for respiratory failure. Denies chest pain Past Medical History Past Medical History Past Medical History Past Medical History Past Medical History: A-Fib, COPD, Pneumonia Additional Past Medical Histor: R SIDE POOR VASCULAR PERFUSION, cardioversions x2 Past Surgical History: Other Additional Past Surgical Histo: CARDIAC ABLASIOIN, CARDIAC STENT, AAA REPAIR Alcohol Use: Occasionally Drug Use: None FHX COPD Cardiovascular: CAD, HTN, Hyperlipidemia, Pulmonary hypertension, Other Pulmonary: Bronchitis, COPD Past Surgical History Past Surgical History: No pertinent history Family History Family History: Hypertension Social History Smoke: Quit ALCOHOL: none Drugs: None Current Medications Current Medications Current Medications Albuterol Sulfate (Ventolin Neb Soln) 10 mg 1X ONCE CONT NEB ; Start 07/21/19 at 09:30; Stop 07/21/19 at 09:31 Methylprednisolone Sodium Succinate (SOLU-Medrol 125MG VIAL) 125 mg 1X ONCE IV ; Start 07/21/19 at 09:30; Stop 07/21/19 at 09:31 Active Scripts Active Montelukast Sodium Tablet (Montelukast Sodium) 10 Mg Tablet 10 Mg PO QHS PRN Duoneb 0.5-3(2.5) Mg/3 Ml (Albuterol/Ipratropium) 3 Ml Ampul.neb 3 Ml NEB RTQID PRN Guaifenesin Dm Syrup (Guaifenesin/Dextromethorphan) 5 Ml Syrup 10 Ml PO PRN Q6HRS PRN Doxycycline Hyclate 100 Mg Tablet 100 Mg PO BID Reported Carvedilol (Carvedilol) 12.5 Mg Tablet 18.75 Mg PO BIDWMEALS Aspirin 81 Mg Tab.chew 1 Tab PO DAILY Losartan-Hctz 100-25 Mg Tab (Losartan/Hydrochlorothiazide) 1 Each Tablet 1 Tab PO DAILY Eliquis (Apixaban) 5 Mg Tablet 5 Mg PO BID Crestor (Rosuvastatin Calcium) 40 Mg Tablet 1 Tab PO DAILY Amlodipine Besylate 10 Mg Tablet 10 Mg PO DAILY Allergies Allergies: Coded Allergies: No Known Drug Allergies (Unverified , 02/01/16) ROS General: YES: Fatigue PSYCHOLOGICAL ROS: No: Anxiety, Behavioral Disorder, Concentration difficultie, Decreased libido, Depression, Disorientation, Hallucinations, Hostility, Irritablity, Memory difficulties, Mood Swings, Obsessive thoughts, Physical abuse, Sexual abuse, Sleep disturbances, Suicidal ideation, Other ALLERGY AND IMMUNOLOGY: No: Hives, Insect Bite Sensitivity, Itchy/Watery Eyes, Nasal Congestion, Post Nasal Drip, Seasonal Allergies, Other ENDOCRINE: No: Breast Changes, Galactorrhea, Hair Pattern Changes, Hot Flashes, Malaise/lethargy, Mood Swings, Palpitations, Polydipsia/polyuria, Skin Changes, Temperature Intolerance, Unexpected Weight Changes, Other Respiratory: YES: Shortness of breath, SOB with excertion Cardiovascular: yes Edema Gastrointestinal: No Nausea, No Vomiting, No Abdominal Pain, No Diarrhea, No Constipation, No Melena, No Hematochezia, No Other Genitourinary: No Dysuria, No Frequency, No Incontinence, No Hematuria, No Retention, No Discharge, No Urgency, No Pain, No Flank Pain, No Other, No , No , No , No , No , No , No Neurological: No Behavorial Changes, No Bowel/Bladder ControlChng, No Confusion, No Dizziness, No Gait Disturbance, No Headaches, No Impaired Coord/balance, No Memory Loss, No Numbness/Tingling, No Seizures, No Speech Problems, No Tremors, No Visual Changes, No Weakness, No Other Physical Exam Physical Exam Physical Exam Physical Exam Constitutional: Well developed, moderate distress HENT: Normocephalic, atraumatic, bilateral external ears normal, oropharynx moist, no oral exudates, nose normal. [] Eyes: PERRLA, EOMI, conjunctiva normal, no discharge. [] Neck: Normal range of motion, no tenderness, supple, no stridor. [] Cardiovascular:Heart rate regular rhythm, no murmur [] Lungs & Thorax:coarse breath sounds with wheezing b/l. pt speaking full sentences, mild to moderate increase in respiratory effort. Abdomen: Bowel sounds normal, soft, no tenderness, no masses, no pulsatile masses. [] Skin:blue Back: No tenderness, no CVA tenderness. [] Extremities: No tenderness, no cyanosis, no clubbing, ROM intact,2 plus edema. Neurologic: Alert and oriented X 3, normal motor function, normal sensory function, no focal deficits noted. [] Psychologic: Affect normal, judgement normal, mood normal. [] General: Alert, Oriented X3, Cooperative, moderate distress HEENT: Atraumatic, PERRLA Heart: RRR Abdomen: Normal bowel sounds, Soft Rectal Exam: not examined PELVIC: Examination not indicated Extremities: No cyanosis Neuro: Normal speech, Cranial nerves 3-12 NL Psych/Mental Status: Mental status NL, Mood NL Images Images PORTABLE CHEST 1V 07/21/2019 9:20 AM INDICATION: Fever COMPARISON: 01/03/2019 TECHNIQUE: Portable frontal view of the chest is provided. FINDINGS: The cardiomediastinal silhouette is similar in appearance. Perihilar interstitial changes may reflect interstitial edema versus interstitial pneumonitis. No significant pleural effusions or pneumothorax. IMPRESSION: Perihilar interstitial changes may reflect interstitial edema versus interstitial pneumonitis. Mild bilateral hilar prominence. Recommend follow-up to resolution. Electronically signed by: Shu Wheeler MD (07/21/2019 9:40 AM) [facility] STATUS: ADM IN ORD. PHYSICIAN: JAMES WILLIAMSON MD REASON: DDIMER ELEV, R/O PE. PROCEDURE: CT ANGIOGRAPHY CHEST CT ANGIOGRAPHY CHEST Indication: Elevated d-dimer. . Technique: After intravenous contrast administration, CT imaging was performed of the chest. MIP reconstructions were obtained. Exposure: One or more of the following individualized dose reduction techniques were utilized for this examination: 1. Automated exposure control 2. Adjustment of the mA and/or kV according to patient size 3. Use of iterative reconstruction technique. Comparison: February 01, 2016 FINDINGS: No evidence of pulmonary embolism. The thoracic aorta is calcified. Mild irregularity of the ascending wall of the aorta is most likely due to pulsatility artifact, no definite thoracic aortic dissection. Ascending aorta measures about 4 cm transverse diameter compatible with ectasia similar to the prior study. Partially visualized thyroid demonstrates no mass. Prominent hilar and mediastinal lymph nodes are again identified, without significant change since prior exam. No pericardial effusion. Heart size mildly enlarged. Coronary artery calcifications. Lungs demonstrate no evidence of consolidating infiltrate or large mass. There is mild patchy atelectasis. Trachea and mainstem bronchi are patent. Scans to the upper abdomen are limited due to technique. Subtle area of increased density in the posterior lateral right lobe of liver measuring 15 mm may just be artifactual versus small flash filling mass. Degenerative spondylosis. No evidence of acute appearing thoracic spine compression fracture. IMPRESSION: 1. No evidence of pulmonary embolism. 2. Chronic findings appear similar as the previous exam. 3. Subtle area of increased density in the right lobe of liver, could be artifact, versus a small enhancing mass angioma. Depending on concern, further evaluation could be obtained with outpatient MRI liver or multiphase CT. Electronically signed by: Dominic Wagoner MD (07/21/2019 11:08 AM) [facility] DICTATED and SIGNED BY: DOMINIC WAGONER MD DATE: 07/21/19 1108 VTE Prophylaxis Ordered VTE Prophylaxis Devices: Yes VTE Pharmacological Prophylaxi: Yes Assessment/Plan Assessment/Plan IMPRESSION acute hypoxic respiratory FAILURE acute on chronic hypercarbic failure, COPD exacerbation HX PROTEIN-CALORIC severe malnutrtion with BMI 32.8, EVA on CPAP at night at home ACUTE PNEUMONITIS, ASPIRATION RISK MORBID OBESITY ON CT Subtle area of increased density in the right lobe of liver, could be artifact, versus a small enhancing mass angioma. PLAN ADMIT ICU BED BIPAP SUPPORT PULM CONSULT EMPERIC IV ANTIBIOTICS, ZOSYN 36 MIN CC TIME AVINASH DIAS MD Jul 21, 2019 09:26
[2019-07-21] MEDS ORDERED: ALBUTEROL SULFATE 2.5 MG/3 ML NEBU. CONT NEB ONE (09:30)
[2019-07-21] MEDS ORDERED: methylPREDNISolone SOD SUCC PF 125 MG/2 ML VIAL. IV ONE (09:30)
[2019-07-21 09:40] LABS: FIO2 ABG 50; PCO2 ABG 89 mmHg (35-46)
--- NOTE | 2019-07-21 09:43 | RAD ---
PORTABLE CHEST 1V 07/21/2019 9:20 AM INDICATION: Fever COMPARISON: 01/03/2019 TECHNIQUE: Portable frontal view of the chest is provided. FINDINGS: The cardiomediastinal silhouette is similar in appearance. Perihilar interstitial changes may reflect interstitial edema versus interstitial pneumonitis. No significant pleural effusions or pneumothorax. IMPRESSION: Perihilar interstitial changes may reflect interstitial edema versus interstitial pneumonitis. Mild bilateral hilar prominence. Recommend follow-up to resolution. Electronically signed by: Shu Wheeler MD (07/21/2019 9:40 AM) [facility]
[2019-07-21] MEDS ORDERED: DOXYCYCLINE HYCLATE 100 MG in IV DEXTROSE 5% 100ML 100 ML IV ONE (09:45)
[2019-07-21] MEDS ORDERED: cefTRIAXone IV Push 1 GM VIAL. IVP ONE (09:45)
[2019-07-21 09:49] LABS: BASO % 0 % (0-3); EOS % 0 % (0-3); HEMATOCRIT 55.4 % (39.0-53.0); HEMOGLOBIN 17.8 g/dL (13.0-17.5); LYMPH # 0.5 x10^3/uL (1.0-4.8); LYMPH % 5 % (24-48); MEAN CORPUSCULAR HEMOGLOBIN 27 pg (25-35); MEAN CORPUSCULAR HGB CONC 32 g/dL (31-37); MEAN CORPUSCULAR VOLUME 83 fL (79-100); MONO % 10 % (0-9); NEUT # 7.8 x10^3/uL (1.8-7.7); NEUT % 84 % (31-73); PLATELET COUNT 146 x10^3/uL (140-400); RED BLOOD COUNT 6.64 x10^6/uL (4.30-5.70); RED CELL DISTRIBUTION WIDTH 19.1 % (11.5-14.5); WHITE BLOOD COUNT 9.3 x10^3/uL (4.0-11.0)
[2019-07-21 09:51] LABS: CALCIUM 8.8 mg/dL (8.5-10.1); CREATININE 0.8 mg/dL (0.7-1.3); POTASSIUM 4.1 mmol/L (3.5-5.1)
[2019-07-21 09:56] LABS: ALBUMIN 2.7 g/dL (3.4-5.0); ALBUMIN/GLOBULIN RATIO 0.6 (1.0-1.7); MAGNESIUM 2.2 mg/dL (1.8-2.4); TOTAL BILIRUBIN 0.5 mg/dL (0.2-1.0); TOTAL PROTEIN 7.5 g/dL (6.4-8.2)
[2019-07-21] MEDS: IV NORMAL SALINE 1000ML BAG 1,000 ML IV SCH ×3 (09:57→10:40)
[2019-07-21 09:58] LABS: PROTHROMBIN TIME PATIENT 14.6 SEC (11.7-14.0)
[2019-07-21 10:04] LABS: D-DIMER 0.67 ug/mlFEU (0.00-0.50)
--- NOTE | 2019-07-21 10:11 | PHYS DOC ---
Past Medical History Past Medical History: A-Fib, COPD, Pneumonia Additional Past Medical Histor: R SIDE POOR VASCULAR PERFUSION, cardioversions x2 Past Surgical History: Other Additional Past Surgical Histo: CARDIAC ABLASIOIN, CARDIAC STENT, AAA REPAIR Alcohol Use: Occasionally Drug Use: None Adult General Chief Complaint Chief Complaint: SHORTNESS OF BREATH HPI HPI Patient is a 63 year old male presenting with chief complaint of shortness of breath cough productive of green-yellow sputum feels feverish recent trip to [place] just got back has a history of COPD on home oxygen at night has required BiPAP in the past for respiratory failure. Denies chest pain history limited by acuity Review of Systems Review of Systems Limited by acuity Current Medications Current Medications Current Medications Medications (Trade) Dose Ordered Sig/Carlie Start Time Stop Time Status Last Admin Dose Admin Albuterol Sulfate (Ventolin Neb Soln) 10 mg 1X ONCE 07/21/19 09:30 07/21/19 09:31 DC 07/21/19 09:58 10 MG Albuterol/ Ipratropium (Duoneb) 3 ml RTQID 07/21/19 12:00 07/22/19 11:59 Ceftriaxone Sodium (Rocephin) 1 gm 1X ONCE 07/21/19 09:45 07/21/19 09:46 DC 07/21/19 09:53 1 GM Doxycycline Hyclate 100 mg/ Dextrose 100 ml @ 50 mls/hr 1X ONCE 07/21/19 09:45 07/21/19 11:44 07/21/19 09:53 50 MLS/HR Methylprednisolone Sodium Succinate (SOLU-Medrol 125MG VIAL) 125 mg 1X ONCE 07/21/19 09:30 07/21/19 09:31 DC 07/21/19 09:38 125 MG Sodium Chloride 1,000 ml @ 2,460 mls/hr Q25M 07/21/19 09:50 07/21/19 10:50 07/21/19 09:57 2,460 MLS/HR Allergies Allergies Allergies Coded Allergies Type Severity Reaction Last Updated Verified No Known Drug Allergies 02/01/16 No Physical Exam Physical Exam Constitutional: Well developed, moderate distress HENT: Normocephalic, atraumatic, bilateral external ears normal, oropharynx moist, no oral exudates, nose normal. [] Eyes: PERRLA, EOMI, conjunctiva normal, no discharge. [] Neck: Normal range of motion, no tenderness, supple, no stridor. [] Cardiovascular:Heart rate regular rhythm, no murmur [] Lungs & Thorax:coarse breath sounds with wheezing b/l. pt speaking full sentences, mild to moderate increase in respiratory effort. Abdomen: Bowel sounds normal, soft, no tenderness, no masses, no pulsatile masses. [] Skin:blue Back: No tenderness, no CVA tenderness. [] Extremities: No tenderness, no cyanosis, no clubbing, ROM intact,2 plus edema. Neurologic: Alert and oriented X 3, normal motor function, normal sensory function, no focal deficits noted. [] Psychologic: Affect normal, judgement normal, mood normal. [] Current Patient Data Vital Signs Vital Signs Date Time Temp Pulse Resp B/P (MAP) Pulse Ox O2 Delivery O2 Flow Rate FiO2 07/21/19 09:05 101.1 68 20 111/65 (80) 93 BiPAP/CPAP 101.1 Lab Values Laboratory Tests Test 07/21/19 09:20 07/21/19 09:28 O2 Saturation 86 % (92-99) L Arterial Blood pH 7.26 (7.35-7.45) L Arterial Blood pCO2 at Patient Temp 89 mmHg (35-46) *H Arterial Blood pO2 at Patient Temp 55 mmHg (65-108) L Arterial Blood HCO3 39 mmol/L (21-28) H Arterial Blood Base Excess 7 mmol/L (-3-3) H FiO2 50 White Blood Count 9.3 x10^3/uL (4.0-11.0) Red Blood Count 6.64 x10^6/uL (4.30-5.70) H Hemoglobin 17.8 g/dL (13.0-17.5) H Hematocrit 55.4 % (39.0-53.0) H Mean Corpuscular Volume 83 fL (79-100) Mean Corpuscular Hemoglobin 27 pg (25-35) Mean Corpuscular Hemoglobin Concent 32 g/dL (31-37) Red Cell Distribution Width 19.1 % (11.5-14.5) H Platelet Count 146 x10^3/uL (140-400) Neutrophils (%) (Auto) 84 % (31-73) H Lymphocytes (%) (Auto) 5 % (24-48) L Monocytes (%) (Auto) 10 % (0-9) H Eosinophils (%) (Auto) 0 % (0-3) Basophils (%) (Auto) 0 % (0-3) Neutrophils # (Auto) 7.8 x10^3/uL (1.8-7.7) H Lymphocytes # (Auto) 0.5 x10^3/uL (1.0-4.8) L Monocytes # (Auto) 1.0 x10^3/uL (0.0-1.1) Eosinophils # (Auto) 0.0 x10^3/uL (0.0-0.7) Basophils # (Auto) 0.0 x10^3/uL (0.0-0.2) Platelet Estimate Pending Prothrombin Time 14.6 SEC (11.7-14.0) H Prothrombin Time INR 1.2 (0.8-1.1) H D-Dimer (Simin) 0.67 ug/mlFEU (0.00-0.50) H Sodium Level 138 mmol/L (136-145) Potassium Level 4.1 mmol/L (3.5-5.1) Chloride Level 96 mmol/L (98-107) L Carbon Dioxide Level 37 mmol/L (21-32) H Anion Gap 5 (6-14) L Blood Urea Nitrogen 13 mg/dL (8-26) Creatinine 0.8 mg/dL (0.7-1.3) Estimated GFR (Cockcroft-Gault) 97.0 BUN/Creatinine Ratio 16 (6-20) Glucose Level 113 mg/dL (70-99) H Calcium Level 8.8 mg/dL (8.5-10.1) Magnesium Level 2.2 mg/dL (1.8-2.4) Total Bilirubin 0.5 mg/dL (0.2-1.0) Aspartate Amino Transferase (AST) 16 U/L (15-37) Alanine Aminotransferase (ALT) 12 U/L (16-63) L Alkaline Phosphatase 91 U/L (46-116) Total Protein 7.5 g/dL (6.4-8.2) Albumin 2.7 g/dL (3.4-5.0) L Albumin/Globulin Ratio 0.6 (1.0-1.7) L Laboratory Tests 07/21/19 09:28 Laboratory Tests 07/21/19 09:28 EKG EKG []EKG showed probably sinus rhythm however it is very poor baseline no STEMI was identified QTC 420-lead 3 I do see clear P waves Radiology/Procedures Radiology/Procedures [] Impressions: IMPRESSION: Perihilar interstitial changes may reflect interstitial edema versus interstitial pneumonitis. Mild bilateral hilar prominence. Recommend follow-up to resolution. Electronically signed by: Nesha Wheeler MD (07/21/2019 9:40 AM) [facility] DICTATED and SIGNED BY: NESHA WHEELER MD DATE: 07/21/19939 Course & Med Decision Making Course & Med Decision Making Pertinent Labs and Imaging studies reviewed. (See chart for details) [] Critical care time was 45 minutes exclusive of procedures. For management of acute hypoxemic respiratory failure requiring BiPAP as well as hypercapnic 63-year-old male COPD on home oxygen and I presenting with hypoxia (initially was 35% on RA then it went up wtih oxygenation currently mid 90's.) also hypercapnic respiratory failure temperature 101 I suspect pneumonia based on the chest x-ray findings we did have improved symptoms with first face max oxygen and that we did BiPAP in that he actually was breathing more comfortably sepsis fluids upfront waiting for BNP last echo showed EF of 55% antibiotics were given checking for influenza as well. admit icu d/w asuncion who saw pt in er. ct scan pending. Dragon Disclaimer Dragon Disclaimer This electronic medical record was generated, in whole or in part, using a voice recognition dictation system. Departure Departure Impression: Primary Impression: Acute respiratory failure Disposition: ADMITTED INPATIENT Admitting Physician: ZOEY Condition: GUARDED Referrals: JORGE ALBERTO CORNELIUS MD (PCP) JAMES WILLIAMSON MD Jul 21, 2019 10:11
[2019-07-21 10:26] LABS: % BANDS 2 % (0-9); % LYMPHS 5 % (24-48); % MONOS 6 % (0-10); % SEGS 87 % (35-66); PLT ESTIMATE ADEQUATE (ADEQUATE)
[2019-07-21 10:27] LABS: ANISOCYTOSIS PRESENT
[2019-07-21] MEDS ORDERED: IOHEXOL 350 MG/ML 100 ML VIAL. IV ONE (10:30)
[2019-07-21] MEDS ORDERED: CONTRAST GIVEN. MC PRN (10:30)
[2019-07-21 10:37] LABS: INFLUENZA A PATIENT NEGATIVE (NEGATIVE); INFLUENZA B PATIENT NEGATIVE (NEGATIVE)
--- NOTE | 2019-07-21 11:10 | RAD ---
CT ANGIOGRAPHY CHEST Indication: Elevated d-dimer. . Technique: After intravenous contrast administration, CT imaging was performed of the chest. MIP reconstructions were obtained. Exposure: One or more of the following individualized dose reduction techniques were utilized for this examination: 1. Automated exposure control 2. Adjustment of the mA and/or kV according to patient size 3. Use of iterative reconstruction technique. Comparison: February 01, 2016 FINDINGS: No evidence of pulmonary embolism. The thoracic aorta is calcified. Mild irregularity of the ascending wall of the aorta is most likely due to pulsatility artifact, no definite thoracic aortic dissection. Ascending aorta measures about 4 cm transverse diameter compatible with ectasia similar to the prior study. Partially visualized thyroid demonstrates no mass. Prominent hilar and mediastinal lymph nodes are again identified, without significant change since prior exam. No pericardial effusion. Heart size mildly enlarged. Coronary artery calcifications. Lungs demonstrate no evidence of consolidating infiltrate or large mass. There is mild patchy atelectasis. Trachea and mainstem bronchi are patent. Scans to the upper abdomen are limited due to technique. Subtle area of increased density in the posterior lateral right lobe of liver measuring 15 mm may just be artifactual versus small flash filling mass. Degenerative spondylosis. No evidence of acute appearing thoracic spine compression fracture. IMPRESSION: 1. No evidence of pulmonary embolism. 2. Chronic findings appear similar as the previous exam. 3. Subtle area of increased density in the right lobe of liver, could be artifact, versus a small enhancing mass angioma. Depending on concern, further evaluation could be obtained with outpatient MRI liver or multiphase CT. Electronically signed by: Dominic Wagoner MD (07/21/2019 11:08 AM) [facility]
[2019-07-21] MEDS ORDERED: IPRATRPIUM/ALBUTEROL 0.5/2.5MG 3 ML NEBU. NEB SCH (12:00)
[2019-07-21 13:00] LABS: BASE EXCESS ABG 1 mmol/L (-3-3); HCO3 ABG 31 mmol/L (21-28); PO2 ABG 59 mmHg (65-108); SAT O2 ABG 90 % (92-99)
[2019-07-21] MEDS: BUDESONIDE 0.5 MG/2 ML NEBU. NEB SCH ×2 (13:00→20:01)
[2019-07-21] MEDS ORDERED: FUROSEMIDE 40 MG/4 ML VIAL. IVP ONE (13:00)
[2019-07-21] MEDS ORDERED: FLU VAX QS 2019-20 (36MOS+)/PF 0.5 ML SYRINGE. VAX IM ONE (13:00)
[2019-07-21 13:06] LABS: FIO2 ABG 40; PCO2 ABG 67 mmHg (35-46)
[2019-07-21] MEDS: methylPREDNISolone SOD SUCC PF 40 MG/ML VIAL. IV SCH ×2 (13:16→21:11)
[2019-07-21] MEDS: AZITHROMYCIN 500 MG in IV NORMAL SALINE 250ML 250 ML IV SCH (13:18)
--- NOTE | 2019-07-21 14:00 | NUR ---
Patient admitted to room 110 at 1100 from ED. at bedside. Patient able to answer admission requirements. BiPap on at 40% FiO2. Orders received from Jen ALBA for lasix, steroid, antibiotics. See EMAR. Urinal at bedside. Patient encouraged to use. 300 ml u/o at this time. Patient is aware of repeat ABG and need for BiPap. Settings adjusted at 1330. See assessments. Admission done. Flu and pneumonia shot requested by patient-- currently being held due to fever (101.1, 100.1). Spoke to Rx. See assessments, VS.
[2019-07-21] MEDS ORDERED: ONDANSETRON PF 4 MG/2 ML VIAL. IV PRN (16:30)
[2019-07-21] MEDS ORDERED: MAG HYDROX/ALUMINUM HYD/SIMETH 30 ML ORAL.SUSP PO PRN (16:30)
[2019-07-21] MEDS ORDERED: BISACODYL 10 MG SUPP.RECT. PR PRN (16:30)
[2019-07-21] MEDS ORDERED: 0.9 % SODIUM CHLORIDE 10 ML DISP.SYRIN. IV PRN (16:30)
[2019-07-21] MEDS ORDERED: MAGNESIUM HYDROXIDE 2,400 MG/30 ML ORAL.SUSP. PO PRN (16:30)
[2019-07-21] MEDS ORDERED: CALCIUM CARBONATE 500 MG TAB.CHEW PO PRN (16:30)
[2019-07-21] MEDS ORDERED: guaiFENesin DM 200MG/20MG 10 ML SYRUP PO PRN (16:30)
[2019-07-21] MEDS ORDERED: PROCHLORPERAZINE 10 MG/2 ML VIAL. IV PRN (16:30)
[2019-07-21 16:38] LABS: BASE EXCESS ABG 5 mmol/L (-3-3); HCO3 ABG 37 mmol/L (21-28); PO2 ABG 59 mmHg (65-108); SAT O2 ABG 88 % (92-99)
[2019-07-21] MEDS ORDERED: ALBUTEROL SULFATE 2.5 MG/3 ML NEBU. NEB PRN (16:45)
[2019-07-21] MEDS: IPRATRPIUM/ALBUTEROL 0.5/2.5MG 3 ML NEBU. NEB SCH ×2 (16:55→20:01)
--- NOTE | 2019-07-21 17:12 | EKG ---
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
--- NOTE | 2019-07-21 17:41 | PDOC ---
PULMONARY PROGRESS NOTES Vitals Vital Signs Date Time Temp Pulse Resp B/P (MAP) Pulse Ox O2 Delivery O2 Flow Rate FiO2 07/21/19 17:00 58 24 147/68 (94) 98 BiPAP/CPAP 07/21/19 15:45 99.1 99.1 General: Alert, Oriented X4, No acute distress Lungs: Crackles Cardiovascular: S1, S2 Abdomen: Soft, Non-tender Extremities: No Edema Labs Laboratory Tests Test 07/21/19 09:20 07/21/19 09:28 07/21/19 10:03 07/21/19 12:50 O2 Saturation 86 % (92-99) 90 % (92-99) Arterial Blood pH 7.26 (7.35-7.45) 7.28 (7.35-7.45) Arterial Blood pCO2 at Patient Temp 89 mmHg (35-46) 67 mmHg (35-46) Arterial Blood pO2 at Patient Temp 55 mmHg (65-108) 59 mmHg (65-108) Arterial Blood HCO3 39 mmol/L (21-28) 31 mmol/L (21-28) Arterial Blood Base Excess 7 mmol/L (-3-3) 1 mmol/L (-3-3) FiO2 50 40 White Blood Count 9.3 x10^3/uL (4.0-11.0) Red Blood Count 6.64 x10^6/uL (4.30-5.70) Hemoglobin 17.8 g/dL (13.0-17.5) Hematocrit 55.4 % (39.0-53.0) Mean Corpuscular Volume 83 fL (79-100) Mean Corpuscular Hemoglobin 27 pg (25-35) Mean Corpuscular Hemoglobin Concent 32 g/dL (31-37) Red Cell Distribution Width 19.1 % (11.5-14.5) Platelet Count 146 x10^3/uL (140-400) Neutrophils (%) (Auto) 84 % (31-73) Lymphocytes (%) (Auto) 5 % (24-48) Monocytes (%) (Auto) 10 % (0-9) Eosinophils (%) (Auto) 0 % (0-3) Basophils (%) (Auto) 0 % (0-3) Neutrophils # (Auto) 7.8 x10^3/uL (1.8-7.7) Lymphocytes # (Auto) 0.5 x10^3/uL (1.0-4.8) Monocytes # (Auto) 1.0 x10^3/uL (0.0-1.1) Eosinophils # (Auto) 0.0 x10^3/uL (0.0-0.7) Basophils # (Auto) 0.0 x10^3/uL (0.0-0.2) Segmented Neutrophils % 87 % (35-66) Band Neutrophils % 2 % (0-9) Lymphocytes % 5 % (24-48) Monocytes % 6 % (0-10) Platelet Estimate Adequate (ADEQUATE) Anisocytosis Present Prothrombin Time 14.6 SEC (11.7-14.0) Prothromb Time International Ratio 1.2 (0.8-1.1) D-Dimer (Simin) 0.67 ug/mlFEU (0.00-0.50) Sodium Level 138 mmol/L (136-145) Potassium Level 4.1 mmol/L (3.5-5.1) Chloride Level 96 mmol/L (98-107) Carbon Dioxide Level 37 mmol/L (21-32) Anion Gap 5 (6-14) Blood Urea Nitrogen 13 mg/dL (8-26) Creatinine 0.8 mg/dL (0.7-1.3) Estimated GFR (Cockcroft-Gault) 97.0 BUN/Creatinine Ratio 16 (6-20) Glucose Level 113 mg/dL (70-99) Lactic Acid Level 1.4 mmol/L (0.4-2.0) Calcium Level 8.8 mg/dL (8.5-10.1) Magnesium Level 2.2 mg/dL (1.8-2.4) Total Bilirubin 0.5 mg/dL (0.2-1.0) Aspartate Amino Transf (AST/SGOT) 16 U/L (15-37) Alanine Aminotransferase (ALT/SGPT) 12 U/L (16-63) Alkaline Phosphatase 91 U/L (46-116) Troponin I Quantitative < 0.017 ng/mL (0.000-0.055) PK-Ude-B-Type Natriuretic Peptide 1452 pg/mL (0-124) Total Protein 7.5 g/dL (6.4-8.2) Albumin 2.7 g/dL (3.4-5.0) Albumin/Globulin Ratio 0.6 (1.0-1.7) Influenza Type A Antigen Negative (NEGATIVE) Influenza Type B Antigen Negative (NEGATIVE) Laboratory Tests Test 07/21/19 09:20 07/21/19 09:28 07/21/19 10:03 07/21/19 12:50 O2 Saturation 86 % (92-99) 90 % (92-99) Arterial Blood pH 7.26 (7.35-7.45) 7.28 (7.35-7.45) Arterial Blood pCO2 at Patient Temp 89 mmHg (35-46) 67 mmHg (35-46) Arterial Blood pO2 at Patient Temp 55 mmHg (65-108) 59 mmHg (65-108) Arterial Blood HCO3 39 mmol/L (21-28) 31 mmol/L (21-28) Arterial Blood Base Excess 7 mmol/L (-3-3) 1 mmol/L (-3-3) FiO2 50 40 White Blood Count 9.3 x10^3/uL (4.0-11.0) Red Blood Count 6.64 x10^6/uL (4.30-5.70) Hemoglobin 17.8 g/dL (13.0-17.5) Hematocrit 55.4 % (39.0-53.0) Mean Corpuscular Volume 83 fL (79-100) Mean Corpuscular Hemoglobin 27 pg (25-35) Mean Corpuscular Hemoglobin Concent 32 g/dL (31-37) Red Cell Distribution Width 19.1 % (11.5-14.5) Platelet Count 146 x10^3/uL (140-400) Neutrophils (%) (Auto) 84 % (31-73) Lymphocytes (%) (Auto) 5 % (24-48) Monocytes (%) (Auto) 10 % (0-9) Eosinophils (%) (Auto) 0 % (0-3) Basophils (%) (Auto) 0 % (0-3) Neutrophils # (Auto) 7.8 x10^3/uL (1.8-7.7) Lymphocytes # (Auto) 0.5 x10^3/uL (1.0-4.8) Monocytes # (Auto) 1.0 x10^3/uL (0.0-1.1) Eosinophils # (Auto) 0.0 x10^3/uL (0.0-0.7) Basophils # (Auto) 0.0 x10^3/uL (0.0-0.2) Segmented Neutrophils % 87 % (35-66) Band Neutrophils % 2 % (0-9) Lymphocytes % 5 % (24-48) Monocytes % 6 % (0-10) Platelet Estimate Adequate (ADEQUATE) Anisocytosis Present Prothrombin Time 14.6 SEC (11.7-14.0) Prothromb Time International Ratio 1.2 (0.8-1.1) D-Dimer (Simin) 0.67 ug/mlFEU (0.00-0.50) Sodium Level 138 mmol/L (136-145) Potassium Level 4.1 mmol/L (3.5-5.1) Chloride Level 96 mmol/L (98-107) Carbon Dioxide Level 37 mmol/L (21-32) Anion Gap 5 (6-14) Blood Urea Nitrogen 13 mg/dL (8-26) Creatinine 0.8 mg/dL (0.7-1.3) Estimated GFR (Cockcroft-Gault) 97.0 BUN/Creatinine Ratio 16 (6-20) Glucose Level 113 mg/dL (70-99) Lactic Acid Level 1.4 mmol/L (0.4-2.0) Calcium Level 8.8 mg/dL (8.5-10.1) Magnesium Level 2.2 mg/dL (1.8-2.4) Total Bilirubin 0.5 mg/dL (0.2-1.0) Aspartate Amino Transf (AST/SGOT) 16 U/L (15-37) Alanine Aminotransferase (ALT/SGPT) 12 U/L (16-63) Alkaline Phosphatase 91 U/L (46-116) Troponin I Quantitative < 0.017 ng/mL (0.000-0.055) GW-Riu-E-Type Natriuretic Peptide 1452 pg/mL (0-124) Total Protein 7.5 g/dL (6.4-8.2) Albumin 2.7 g/dL (3.4-5.0) Albumin/Globulin Ratio 0.6 (1.0-1.7) Influenza Type A Antigen Negative (NEGATIVE) Influenza Type B Antigen Negative (NEGATIVE) Medications Active Scripts Medications Dose Route/Sig Max Daily Dose Days Date Category Montelukast Sodium Tablet (Montelukast Sodium) 10 Mg Tablet 10 Mg PO QHS PRN 01/05/19 Rx Duoneb 0.5-3(2.5) Mg/3 Ml (Albuterol/Ipratropium) 3 Ml Ampul.neb 3 Ml NEB RTQID PRN 01/05/19 Rx Guaifenesin Dm Syrup (Guaifenesin/Dextromethorphan) 5 Ml Syrup 10 Ml PO PRN Q6HRS PRN 01/05/19 Rx Doxycycline Hyclate 100 Mg Tablet 100 Mg PO BID 01/05/19 Rx Carvedilol (Carvedilol) 12.5 Mg Tablet 18.75 Mg PO BIDWMEALS 01/03/19 Reported Aspirin 81 Mg Tab.chew 1 Tab PO DAILY 01/03/19 Reported Losartan-Hctz 100-25 Mg Tab (Losartan/Hydrochlorothiazide) 1 Each Tablet 1 Tab PO DAILY 01/03/19 Reported Eliquis (Apixaban) 5 Mg Tablet 5 Mg PO BID 01/03/19 Reported Crestor (Rosuvastatin Calcium) 40 Mg Tablet 1 Tab PO DAILY 01/03/19 Reported Amlodipine Besylate 10 Mg Tablet 10 Mg PO DAILY 01/03/19 Reported Impression . FULL NOTE DICTATED A/C HYPERCAPNEA/HYPOXEMIA AECOPD WILL NEED AVAPS/BIPAP AT HOME CONTINUE SAME FOR NOW WOLF MARIE MD Jul 21, 2019 17:41
[2019-07-21] MEDS: CARVEDILOL 12.5 MG TABLET. PO SCH (17:46)
[2019-07-21] MEDS ORDERED: PIPERACILLIN/TAZOBACTAM 3.375 GM in IV NORMAL SALINE 50ML 50 ML IV SCH (18:00)
[2019-07-21 18:01] LABS: PCO2 ABG 84 mmHg (35-46)
[2019-07-21 18:02] LABS: FIO2 ABG 45
--- NOTE | 2019-07-21 19:47 | CONS ---
DATE OF CONSULTATION: 07/21/2019 ATTENDING PHYSICIAN: Dr. Rivas. REASON FOR CONSULTATION: The patient seen in pulmonary consultation at the request of Dr. Rivas for [id number]-[id number]-jeebwdk hypercapnic hypoxemic respiratory failure. Initial arterial blood gas; pH of 7.26, PaCO2 of 89, pO2 of 55, bicarb of 39. HISTORY OF PRESENT ILLNESS: The patient is a 63-year-old male with underlying chronic obstructive pulmonary disease, quit 12 years ago. Was hospitalized back in December with similar problems. At that time, he had acute exacerbation of chronic obstructive pulmonary disease, possible pneumonia. The patient was treated and discharged home. At home, he has a CPAP machine that he wears at nighttime. No oxygen supplementation. He has been sick now for approximately 1-2 days. He recently returned from a trip in [place]. He was flying. Denied any associated chest pain. No pressure, no acute onset of shortness of air associated with syncope. No paroxysmal nocturnal dyspnea or pedal edema. The patient was seen in the Emergency Department. He underwent a CT angiogram. I reviewed it myself. In comparison to the film of 2016, there is no evidence of pulmonary embolism. There are some chronic findings. He does have some atelectasis, some increased lung markings very similar to the previous CAT scan. PAST MEDICAL HISTORY: 1. Chronic obstructive pulmonary disease. 2. Tobacco dependent, in remission. 3. Chronic hypercapnic respiratory failure. 4. Hyperlipidemia. 5. Hypertension. 6. Previous pneumonia. 7. Coronary artery disease with previous coronary artery stenting. 8. Obstructive sleep apnea, on CPAP at home. 9. Abdominal aortic aneurysm repair. 10. Status post cardiac ablation. 11. Previous cardioversion. 12. Chronic atrial fibrillation. PAST SURGICAL HISTORY: As above. FAMILY HISTORY: Hypertension. No lung disorders. SOCIAL HISTORY: He quit tobacco 12 years ago. 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 ALLERGIES: No known drug allergies. HOME MEDICATIONS: List was reviewed. CURRENT MEDICATION: List was likewise reviewed. REVIEW OF SYSTEMS: CONSTITUTIONAL: Subjective fever. EYES: No change in visual acuity. HENT: No nasal congestion or sore throat. PULMONARY: As indicated above. CARDIOVASCULAR: As indicated above. GASTROINTESTINAL: No nausea, vomiting, diarrhea. GENITOURINARY: No dysuria or frequency. MUSCULOSKELETAL: No localized muscle aches or joint pains. SKIN: No new skin rashes. NEUROLOGIC: No headaches, diplopia or blurred vision. PHYSICAL EXAMINATION: VITAL SIGNS: Stable. O2 saturation currently 91%. The patient is on BiPAP. Repeat arterial blood gas revealed a pH of 7.28, PaCO2 of 67 and pO2 of 59. HEENT: Eyes, the sclerae were nonicteric. NECK: Jugular venous distention was not elevated. CHEST: Full expansion. LUNGS: Crackles and poor airway flow with prolonged expiratory phase, some mild wheezes. CARDIOVASCULAR: Regular rate and rhythm with S1, S2, no S3. ABDOMEN: Slightly obese. Soft and nontender. EXTREMITIES: No clubbing, cyanosis. Minimal edema. NEUROLOGICAL: The patient was awake, alert, following commands. A detailed neuro exam was not performed. LABORATORY DATA: Labs were reviewed. White count was normal. Hemoglobin and hematocrit were noted. Serology for influenza was negative. Electrolytes were noted. BUN was 13, creatinine was 0.8. Albumin was low. Troponin was not elevated. BNP was elevated. IMPRESSION: 1. Edesr-vo-glrlgyr hypercapnic hypoxemic respiratory failure. 2. Acute exacerbation of chronic obstructive pulmonary disease. 3. CT chest revealing no evidence of pulmonary embolism. There is some increased lung markings compatible with mild interstitial lung disease. No consolidation is seen. 4. Acute exacerbation of chronic obstructive pulmonary disease. 5. Chronic atrial fibrillation. 6. Coronary artery disease with previous stent placement. 7. Previous abdominal aortic aneurysm repair. PLAN: 1. We will continue current BiPAP settings. Repeat arterial blood gas in the morning. 2. Steroids. 3. Bronchodilators. 4. I will have [employer] digital [employer] social media and crm work on obtaining a home on AVAPS or BiPAP. The patient has had 2 admissions within the last 6 months with hypercapnic respiratory failure. He was last here on 01/03/2019. 5. The patient instructed to avoid secondhand smoke fumes and toxins. 6. The patient will undergo a 6-minute walk prior to discharge. 7. Deep venous thrombosis and gastrointestinal prophylaxis. Total cumulative critical care time is 65 minutes reviewing the current documentation, data, CT chest, old chart and formulating a plan. The above was discussed with the at the bedside. I do appreciate the privilege in sharing in the patient's care. WOLF MARIE MD DR: JANAY/shasta JOB#: [id number] / [id number]
[2019-07-21] MEDS ORDERED: DOXYCYCLINE HYCLATE 100 MG TABLET PO SCH (21:00)
[2019-07-21] MEDS: DOCUSATE SODIUM 100 MG CAPSULE. PO SCH (21:10)
[2019-07-21] MEDS: ATORVASTATIN CALCIUM 40 MG TABLET. PO SCH (21:10)
[2019-07-21] MEDS: MONTELUKAST SODIUM 10 MG TABLET. PO SCH (21:10)
[2019-07-21] MEDS: APIXABAN 5 MG TABLET. PO SCH (21:11)
[2019-07-21] MEDS: FAMOTIDINE 20 MG TABLET. PO SCH (21:11)
[2019-07-22] VITALS (13 sets, daily range): BP systolic 124–168; BP diastolic 46–71
[2019-07-22 05:37] LABS: BASO % 0 % (0-3); EOS % 0 % (0-3); HEMATOCRIT 55.2 % (39.0-53.0); HEMOGLOBIN 17.6 g/dL (13.0-17.5); LYMPH # 0.4 x10^3/uL (1.0-4.8); LYMPH % 6 % (24-48); MEAN CORPUSCULAR HEMOGLOBIN 27 pg (25-35); MEAN CORPUSCULAR HGB CONC 32 g/dL (31-37); MEAN CORPUSCULAR VOLUME 83 fL (79-100); MONO # 0.3 x10^3/uL (0.0-1.1); MONO % 5 % (0-9); NEUT # 6.1 x10^3/uL (1.8-7.7); NEUT % 89 % (31-73); PLATELET COUNT 156 x10^3/uL (140-400); RED BLOOD COUNT 6.63 x10^6/uL (4.30-5.70); WHITE BLOOD COUNT 6.8 x10^3/uL (4.0-11.0)
[2019-07-22] MEDS: methylPREDNISolone SOD SUCC PF 40 MG/ML VIAL. IV SCH ×3 (05:44→21:39)
[2019-07-22 05:46] LABS: ALBUMIN 2.5 g/dL (3.4-5.0); ALBUMIN/GLOBULIN RATIO 0.6 (1.0-1.7); CALCIUM 8.8 mg/dL (8.5-10.1); CREATININE 0.9 mg/dL (0.7-1.3); GFR 84.7; POTASSIUM 4.2 mmol/L (3.5-5.1); TOTAL BILIRUBIN 0.4 mg/dL (0.2-1.0)
[2019-07-22] MEDS: IPRATRPIUM/ALBUTEROL 0.5/2.5MG 3 ML NEBU. NEB SCH ×4 (07:50→19:59)
[2019-07-22] MEDS: BUDESONIDE 0.5 MG/2 ML NEBU. NEB SCH ×2 (07:50→19:59)
[2019-07-22] MEDS: CARVEDILOL 12.5 MG TABLET. PO SCH ×2 (08:00→16:48)
[2019-07-22 08:24] LABS: BASE EXCESS ABG 8 mmol/L (-3-3); HCO3 ABG 36 mmol/L (21-28); PO2 ABG 109 mmHg (65-108); SAT O2 ABG 98 % (92-99)
[2019-07-22] MEDS: ANTI-COAG MONITOR BY PHARMACY. MC PRN (08:43)
[2019-07-22 08:58] LABS: PCO2 ABG 60 mmHg (35-46)
--- NOTE | 2019-07-22 08:58 | RAD ---
CHEST AP ONLY History: Shortness of breath Comparison: July 21, 2019. Findings: Single view of the chest is submitted. Pericardial cardiac silhouette is again enlarged. There is again some reticular and interstitial opacity bilaterally not significantly changed. There is no dependent pleural fluid or pneumothorax. There is no new lobar consolidation. Impression: 1. Interstitial and reticular opacity bilaterally is similar. There is again enlargement of the pericardial cardiac silhouette. Electronically signed by: Ryan Patel MD (07/22/2019 8:54 AM) [id number]
[2019-07-22] MEDS ORDERED: cefTRIAXone IV Push 1 GM VIAL. IVP SCH (09:00)
[2019-07-22] MEDS: DOCUSATE SODIUM 100 MG CAPSULE. PO SCH ×2 (09:00→20:54)
[2019-07-22] MEDS: LACTOBACILLUS RHAMNOSUS GG 1 CAPSULE. PO SCH ×2 (09:00→20:54)
[2019-07-22] MEDS: hydroCHLOROthiazide 25 MG TABLET PO SCH (10:11)
[2019-07-22] MEDS: LOSARTAN POTASSIUM 50 MG TABLET. PO SCH (10:12)
[2019-07-22] MEDS: FAMOTIDINE 20 MG TABLET. PO SCH ×2 (10:12→20:53)
[2019-07-22] MEDS: ASPIRIN CHEWABLE 81 MG TABLET. PO SCH (10:12)
[2019-07-22] MEDS: APIXABAN 5 MG TABLET. PO SCH ×2 (10:12→20:54)
--- NOTE | 2019-07-22 11:56 | PDOC2 ---
CONSULT Date of Consult Date of Consult DATE: 07/22/19 TIME: 11:50 Reason for Consult Reason for Consult: Shortness of breath Referring Physician Referring Physician: Dr. Rivas Identification/Chief Complaint Chief Complaint Shortness of breath Source Source: Chart review, Patient History of Present Illness Reason for Visit: The patient is a 63-year-old male who was admitted through the emergency room for several days of increasing shortness of breath. He does have a history of COPD with previous atrial fibrillation and coronary artery disease with stent. He has been treated overnight with BiPAP and pulmonary treatments and is feeling improved today. He denies any chest pain. Chest x-ray shows possible mild interstitial edema. CT scan of the chest shows no evidence of pulmonary emboli. Cardiac history is significant for coronary disease and atrial fibrillation status post an ablation. His EKG shows a sinus rhythm. He is feeling better today. Past Medical History Cardiovascular: CAD, HTN, Hyperlipidemia, Pulmonary hypertension, Other Pulmonary: Bronchitis, COPD Past Surgical History Past Surgical History: Other (cardiac ablation. Abdominal aortic aneurysm repair.), No pertinent history Family History Family History: Hypertension Social History Quit ALCOHOL: none Drugs: None Current Problem List Problem List Problems Medical Problems: (1) Acute respiratory failure Status: Acute Current Medications Current Medications Current Medications Albuterol Sulfate (Ventolin Neb Soln) 10 mg 1X ONCE CONT NEB Last administered on 07/21/19at 09:58; Start 07/21/19 at 09:30; Stop 07/21/19 at 09:31; Status DC Methylprednisolone Sodium Succinate (SOLU-Medrol 125MG VIAL) 125 mg 1X ONCE IV Last administered on 07/21/19at 09:38; Start 07/21/19 at 09:30; Stop 07/21/19 at 09:31; Status DC Ceftriaxone Sodium (Rocephin) 1 gm 1X ONCE IVP Last administered on 07/21/19at 09:53; Start 07/21/19 at 09:45; Stop 07/21/19 at 09:46; Status DC Doxycycline Hyclate 100 mg/ Dextrose 100 ml @ 50 mls/hr 1X ONCE IV Last administered on 07/21/19at 09:53; Start 07/21/19 at 09:45; Stop 07/21/19 at 11:44; Status DC Sodium Chloride 1,000 ml @ 2,460 mls/hr Q25M IV Last administered on 07/21/19at 09:57; Start 07/21/19 at 09:50; Stop 07/21/19 at 10:50; Status DC Albuterol/ Ipratropium (Duoneb) 3 ml RTQID NEB Last administered on 07/21/19at 12:40; Start 07/21/19 at 12:00; Stop 07/21/19 at 12:54; Status DC Iohexol (Omnipaque 350 Mg/ml) 100 ml 1X ONCE IV Last administered on 07/21/19at 10:52; Start 07/21/19 at 10:30; Stop 07/21/19 at 10:31; Status DC Info (CONTRAST GIVEN -- Rx MONITORING) 1 each PRN DAILY PRN MC SEE COMMENTS; S tart 07/21/19 at 10:30; Stop 07/23/19 at 10:29 Influenza Virus Vaccine Quadrival (Afluria Quad 2019-20 (3yr Up) Syringe) 0.5 ml ONCE ONCE VAX IM ; Start 07/21/19 at 13:00; Stop 07/21/19 at 13:01; Status DC Albuterol/ Ipratropium (Duoneb) 3 ml RTQID NEB Last administered on 07/22/19at 07:50; Start 07/21/19 at 16:00 Budesonide (Pulmicort) 0.5 mg RTBID NEB Last administered on 07/22/19at 07:50; Start 07/21/19 at 13:00 Methylprednisolone Sodium Succinate (SOLU-Medrol 40MG VIAL) 40 mg Q8HRS IV Last administered on 07/22/19at 05:44; Start 07/21/19 at 14:00 Furosemide (Lasix) 40 mg 1X ONCE IVP Last administered on 07/21/19at 13:16; S tart 07/21/19 at 13:00; Stop 07/21/19 at 13:01; Status DC Ceftriaxone Sodium (Rocephin) 1 gm Q24H IVP ; Start 07/22/19 at 09:00; Stop 07/21/19 at 16:28; Status DC Azithromycin 500 mg/Sodium Chloride 250 ml @ 250 mls/hr Q24H IV Last administered on 07/21/19at 13:18; Start 07/21/19 at 13:30 Piperacillin Sod/ Tazobactam Sod 3.375 gm/Sodium Chloride 50 ml @ 100 mls/hr Q6HRS IV ; Start 07/21/19 at 18:00; Stop 07/21/19 at 17:43; Status DC Amlodipine Besylate (Norvasc) 10 mg DAILY PO ; Start 07/22/19 at 09:00 Apixaban (Eliquis) 5 mg BID PO Last administered on 07/22/19at 10:12; Start 07/21/19 at 21:00 Aspirin (Children'S Aspirin) 81 mg DAILY PO Last administered on 07/22/19at 10:12; Start 07/22/19 at 09:00 Carvedilol (Coreg) 18.75 mg BIDWMEALS PO Last administered on 07/21/19at 17:46; Start 07/21/19 at 17:00 Doxycycline Hyclate (Vibra-Tab) 100 mg BID PO ; Start 07/21/19 at 21:00; Stop 07/21/19 at 17:43; Status DC Guaifenesin (Robitussin Dm) 10 ml PRN Q6HRS PRN PO COUGH; Start 07/21/19 at 16:30 Albuterol Sulfate (Ventolin Neb Soln) 2.5 mg PRN Q6HRS PRN NEB SHORTNESS OF BREATH; Start 07/21/19 at 16:45 Montelukast Sodium (Singulair) 10 mg QHS PO Last administered on 07/21/19at 21:10; Start 07/21/19 at 21:00 Losartan Potassium (Cozaar) 100 mg DAILY PO Last administered on 07/22/19at 10:12; Start 07/22/19 at 09:00 Atorvastatin Calcium (Lipitor) 80 mg QHS PO Last administered on 07/21/19at 21:10; Start 07/21/19 at 21:00 Lorazepam (Ativan Inj) 0.5 mg PRN Q6HRS PRN IV ANXIETY / AGITATION; Start 07/21/19 at 16:30 Ondansetron HCl (Zofran) 4 mg PRN Q6HRS PRN IV NAUSEA/VOMITING 1ST CHOICE; Start 07/21/19 at 16:30 Prochlorperazine Edisylate (Compazine) 5 mg PRN Q6HRS PRN IV NAUSEA/VOMITING 2ND CHOICE; Start 07/21/19 at 16:30 Al Hydroxide/Mg Hydroxide (Mylanta Plus Xs) 30 ml PRN Q3HRS PRN PO HEARTBURN / GAS; Start 07/21/19 at 16:30 Calcium Carbonate/ Glycine (Tums) 500 mg PRN Q3HRS PRN PO HEARTBURN / GAS; Start 07/21/19 at 16:30 Famotidine (Pepcid) 20 mg BID PO Last administered on 07/22/19at 10:12; Start 07/21/19 at 21:00 Sodium Chloride (Normal Saline Flush) 3 ml QSHIFT PRN IV AFTER MEDS AND BLOOD DRAWS; Start 07/21/19 at 16:30 Docusate Sodium (Colace) 100 mg BID PO Last administered on 07/21/19at 21:10; Start 07/21/19 at 21:00 Magnesium Hydroxide (Milk Of Magnesia) 2,400 mg PRN Q12HR PRN PO CONSTIPATION; Start 07/21/19 at 16:30 Bisacodyl (Dulcolax Supp) 10 mg PRN DAILY PRN [place] CONSTIPATION; Start 07/21/19 at 16:30 Info (Anti-Coagulation Monitoring By Pharmacy) 1 each PRN DAILY PRN MC SEE COMMENTS Last administered on 07/22/19at 08:43; Start 07/21/19 at 16:45 Hydrochlorothiazide (Hydrodiuril) 25 mg DAILY PO Last administered on 9at 10:11; Start 07/22/19 at 09:00 Lactobacillus Rhamnosus (Culturelle) 1 cap BID PO ; Start 07/22/19 at 09:00 Active Scripts Active Montelukast Sodium Tablet (Montelukast Sodium) 10 Mg Tablet 10 Mg PO QHS PRN Duoneb 0.5-3(2.5) Mg/3 Ml (Albuterol/Ipratropium) 3 Ml Ampul.neb 3 Ml NEB RTQID PRN Guaifenesin Dm Syrup (Guaifenesin/Dextromethorphan) 5 Ml Syrup 10 Ml PO PRN Q6HRS PRN Doxycycline Hyclate 100 Mg Tablet 100 Mg PO BID Reported Carvedilol (Carvedilol) 12.5 Mg Tablet 18.75 Mg PO BIDWMEALS Aspirin 81 Mg Tab.chew 1 Tab PO DAILY Losartan-Hctz 100-25 Mg Tab (Losartan/Hydrochlorothiazide) 1 Each Tablet 1 Tab PO DAILY Eliquis (Apixaban) 5 Mg Tablet 5 Mg PO BID Crestor (Rosuvastatin Calcium) 40 Mg Tablet 1 Tab PO DAILY Amlodipine Besylate 10 Mg Tablet 10 Mg PO DAILY Allergies Allergies: Coded Allergies: No Known Drug Allergies (Unverified , 02/01/16) ROS Respiratory: YES: Shortness of breath, SOB with excertion Physical Exam General: mild distress HEENT: Atraumatic Lungs: Other (decreased breath sounds) Heart: Regular rate Abdomen: Normal bowel sounds Vitals VITALS Vital Signs Date Time Temp Pulse Resp B/P (MAP) Pulse Ox O2 Delivery O2 Flow Rate FiO2 07/22/19 11:00 62 18 155/67 (96) 97 Nasal Cannula 3.0 07/22/19 05:00 98.0 98.0 Labs Labs Laboratory Tests Test 07/21/19 09:20 07/21/19 09:28 07/21/19 10:03 07/21/19 12:50 O2 Saturation 86 % (92-99) 90 % (92-99) Arterial Blood pH 7.26 (7.35-7.45) 7.28 (7.35-7.45) Arterial Blood pCO2 at Patient Temp 89 mmHg (35-46) 67 mmHg (35-46) Arterial Blood pO2 at Patient Temp 55 mmHg (65-108) 59 mmHg (65-108) Arterial Blood HCO3 39 mmol/L (21-28) 31 mmol/L (21-28) Arterial Blood Base Excess 7 mmol/L (-3-3) 1 mmol/L (-3-3) FiO2 50 40 White Blood Count 9.3 x10^3/uL (4.0-11.0) Red Blood Count 6.64 x10^6/uL (4.30-5.70) Hemoglobin 17.8 g/dL (13.0-17.5) Hematocrit 55.4 % (39.0-53.0) Mean Corpuscular Volume 83 fL (79-100) Mean Corpuscular Hemoglobin 27 pg (25-35) Mean Corpuscular Hemoglobin Concent 32 g/dL (31-37) Red Cell Distribution Width 19.1 % (11.5-14.5) Platelet Count 146 x10^3/uL (140-400) Neutrophils (%) (Auto) 84 % (31-73) Lymphocytes (%) (Auto) 5 % (24-48) Monocytes (%) (Auto) 10 % (0-9) Eosinophils (%) (Auto) 0 % (0-3) Basophils (%) (Auto) 0 % (0-3) Neutrophils # (Auto) 7.8 x10^3/uL (1.8-7.7) Lymphocytes # (Auto) 0.5 x10^3/uL (1.0-4.8) Monocytes # (Auto) 1.0 x10^3/uL (0.0-1.1) Eosinophils # (Auto) 0.0 x10^3/uL (0.0-0.7) Basophils # (Auto) 0.0 x10^3/uL (0.0-0.2) Segmented Neutrophils % 87 % (35-66) Band Neutrophils % 2 % (0-9) Lymphocytes % 5 % (24-48) Monocytes % 6 % (0-10) Platelet Estimate Adequate (ADEQUATE) Anisocytosis Present Prothrombin Time 14.6 SEC (11.7-14.0) Prothromb Time International Ratio 1.2 (0.8-1.1) D-Dimer (Simin) 0.67 ug/mlFEU (0.00-0.50) Sodium Level 138 mmol/L (136-145) Potassium Level 4.1 mmol/L (3.5-5.1) Chloride Level 96 mmol/L (98-107) Carbon Dioxide Level 37 mmol/L (21-32) Anion Gap 5 (6-14) Blood Urea Nitrogen 13 mg/dL (8-26) Creatinine 0.8 mg/dL (0.7-1.3) Estimated GFR (Cockcroft-Gault) 97.0 BUN/Creatinine Ratio 16 (6-20) Glucose Level 113 mg/dL (70-99) Lactic Acid Level 1.4 mmol/L (0.4-2.0) Calcium Level 8.8 mg/dL (8.5-10.1) Magnesium Level 2.2 mg/dL (1.8-2.4) Total Bilirubin 0.5 mg/dL (0.2-1.0) Aspartate Amino Transf (AST/SGOT) 16 U/L (15-37) Alanine Aminotransferase (ALT/SGPT) 12 U/L (16-63) Alkaline Phosphatase 91 U/L (46-116) Troponin I Quantitative < 0.017 ng/mL (0.000-0.055) FY-Hue-Q-Type Natriuretic Peptide 1452 pg/mL (0-124) Total Protein 7.5 g/dL (6.4-8.2) Albumin 2.7 g/dL (3.4-5.0) Albumin/Globulin Ratio 0.6 (1.0-1.7) Influenza Type A Antigen Negative (NEGATIVE) Influenza Type B Antigen Negative (NEGATIVE) Test 07/21/19 16:30 07/22/19 05:00 07/22/19 08:00 O2 Saturation 88 % (92-99) 98 % (92-99) Arterial Blood pH 7.26 (7.35-7.45) 7.40 (7.35-7.45) Arterial Blood pCO2 at Patient Temp 84 mmHg (35-46) 60 mmHg (35-46) Arterial Blood pO2 at Patient Temp 59 mmHg (65-108) 109 mmHg (65-108) Arterial Blood HCO3 37 mmol/L (21-28) 36 mmol/L (21-28) Arterial Blood Base Excess 5 mmol/L (-3-3) 8 mmol/L (-3-3) FiO2 45 White Blood Count 6.8 x10^3/uL (4.0-11.0) Red Blood Count 6.63 x10^6/uL (4.30-5.70) Hemoglobin 17.6 g/dL (13.0-17.5) Hematocrit 55.2 % (39.0-53.0) Mean Corpuscular Volume 83 fL (79-100) Mean Corpuscular Hemoglobin 27 pg (25-35) Mean Corpuscular Hemoglobin Concent 32 g/dL (31-37) Red Cell Distribution Width 19.0 % (11.5-14.5) Platelet Count 156 x10^3/uL (140-400) Neutrophils (%) (Auto) 89 % (31-73) Lymphocytes (%) (Auto) 6 % (24-48) Monocytes (%) (Auto) 5 % (0-9) Eosinophils (%) (Auto) 0 % (0-3) Basophils (%) (Auto) 0 % (0-3) Neutrophils # (Auto) 6.1 x10^3/uL (1.8-7.7) Lymphocytes # (Auto) 0.4 x10^3/uL (1.0-4.8) Monocytes # (Auto) 0.3 x10^3/uL (0.0-1.1) Eosinophils # (Auto) 0.0 x10^3/uL (0.0-0.7) Basophils # (Auto) 0.0 x10^3/uL (0.0-0.2) Sodium Level 135 mmol/L (136-145) Potassium Level 4.2 mmol/L (3.5-5.1) Chloride Level 95 mmol/L (98-107) Carbon Dioxide Level 35 mmol/L (21-32) Anion Gap 5 (6-14) Blood Urea Nitrogen 18 mg/dL (8-26) Creatinine 0.9 mg/dL (0.7-1.3) Estimated GFR (Cockcroft-Gault) 84.7 BUN/Creatinine Ratio 20 (6-20) Glucose Level 139 mg/dL (70-99) Calcium Level 8.8 mg/dL (8.5-10.1) Total Bilirubin 0.4 mg/dL (0.2-1.0) Aspartate Amino Transf (AST/SGOT) 15 U/L (15-37) Alanine Aminotransferase (ALT/SGPT) 11 U/L (16-63) Alkaline Phosphatase 77 U/L (46-116) Total Protein 7.0 g/dL (6.4-8.2) Albumin 2.5 g/dL (3.4-5.0) Albumin/Globulin Ratio 0.6 (1.0-1.7) Laboratory Tests Test 07/21/19 12:50 07/21/19 16:30 07/22/19 05:00 07/22/19 08:00 O2 Saturation 90 % (92-99) 88 % (92-99) 98 % (92-99) Arterial Blood pH 7.28 (7.35-7.45) 7.26 (7.35-7.45) 7.40 (7.35-7.45) Arterial Blood pCO2 at Patient Temp 67 mmHg (35-46) 84 mmHg (35-46) 60 mmHg (35-46) Arterial Blood pO2 at Patient Temp 59 mmHg (65-108) 59 mmHg (65-108) 109 mmHg (65-108) Arterial Blood HCO3 31 mmol/L (21-28) 37 mmol/L (21-28) 36 mmol/L (21-28) Arterial Blood Base Excess 1 mmol/L (-3-3) 5 mmol/L (-3-3) 8 mmol/L (-3-3) FiO2 40 45 White Blood Count 6.8 x10^3/uL (4.0-11.0) Red Blood Count 6.63 x10^6/uL (4.30-5.70) Hemoglobin 17.6 g/dL (13.0-17.5) Hematocrit 55.2 % (39.0-53.0) Mean Corpuscular Volume 83 fL (79-100) Mean Corpuscular Hemoglobin 27 pg (25-35) Mean Corpuscular Hemoglobin Concent 32 g/dL (31-37) Red Cell Distribution Width 19.0 % (11.5-14.5) Platelet Count 156 x10^3/uL (140-400) Neutrophils (%) (Auto) 89 % (31-73) Lymphocytes (%) (Auto) 6 % (24-48) Monocytes (%) (Auto) 5 % (0-9) Eosinophils (%) (Auto) 0 % (0-3) Basophils (%) (Auto) 0 % (0-3) Neutrophils # (Auto) 6.1 x10^3/uL (1.8-7.7) Lymphocytes # (Auto) 0.4 x10^3/uL (1.0-4.8) Monocytes # (Auto) 0.3 x10^3/uL (0.0-1.1) Eosinophils # (Auto) 0.0 x10^3/uL (0.0-0.7) Basophils # (Auto) 0.0 x10^3/uL (0.0-0.2) Sodium Level 135 mmol/L (136-145) Potassium Level 4.2 mmol/L (3.5-5.1) Chloride Level 95 mmol/L (98-107) Carbon Dioxide Level 35 mmol/L (21-32) Anion Gap 5 (6-14) Blood Urea Nitrogen 18 mg/dL (8-26) Creatinine 0.9 mg/dL (0.7-1.3) Estimated GFR (Cockcroft-Gault) 84.7 BUN/Creatinine Ratio 20 (6-20) Glucose Level 139 mg/dL (70-99) Calcium Level 8.8 mg/dL (8.5-10.1) Total Bilirubin 0.4 mg/dL (0.2-1.0) Aspartate Amino Transf (AST/SGOT) 15 U/L (15-37) Alanine Aminotransferase (ALT/SGPT) 11 U/L (16-63) Alkaline Phosphatase 77 U/L (46-116) Total Protein 7.0 g/dL (6.4-8.2) Albumin 2.5 g/dL (3.4-5.0) Albumin/Globulin Ratio 0.6 (1.0-1.7) Images Images CT scan of the chest shows no pulmonary embolism. Assessment/Plan Assessment/Plan 1. Acute hypoxic respiratory failure. Patient's been treated with point medications and support overnight. He has been seen by the pulmonary service. We'll continue present treatment. 2. Possible contributing factors of heart failure. No ischemic EKG changes. We'll check an echocardiogram. 3. History of coronary artery disease. No chest pain. Check troponin. 4. History of atrial fibrillation status post ablation. In sinus rhythm. Continue to monitor. 5. Report history of AAA repair. Thank you for allowing us to participate in the care of your patient. LUCI LEIJA MD Jul 22, 2019 11:56
--- NOTE | 2019-07-22 12:05 | PDOC ---
PULMONARY PROGRESS NOTES Subjective Pt. is feeling much better today, off BIPAP this am and on N/C Wore BIPAP overnight Denies increased SOA or increased cough Vitals Vital Signs Date Time Temp Pulse Resp B/P (MAP) Pulse Ox O2 Delivery O2 Flow Rate FiO2 07/22/19 11:00 62 18 155/67 (96) 97 Nasal Cannula 3.0 07/22/19 05:00 98.0 98.0 ROS: No Nausea, No Chest Pain, No Abdominal Pain, No Increase Cough General: Alert, Oriented X4, No acute distress Lungs: Wheezing Cardiovascular: S1, S2 Abdomen: Soft, Non-tender Neuro Exam: Alert, Oriented Extremities: No Edema Labs Laboratory Tests Test 07/21/19 09:20 07/21/19 09:28 07/21/19 10:03 07/21/19 12:50 O2 Saturation 86 % (92-99) 90 % (92-99) Arterial Blood pH 7.26 (7.35-7.45) 7.28 (7.35-7.45) Arterial Blood pCO2 at Patient Temp 89 mmHg (35-46) 67 mmHg (35-46) Arterial Blood pO2 at Patient Temp 55 mmHg (65-108) 59 mmHg (65-108) Arterial Blood HCO3 39 mmol/L (21-28) 31 mmol/L (21-28) Arterial Blood Base Excess 7 mmol/L (-3-3) 1 mmol/L (-3-3) FiO2 50 40 White Blood Count 9.3 x10^3/uL (4.0-11.0) Red Blood Count 6.64 x10^6/uL (4.30-5.70) Hemoglobin 17.8 g/dL (13.0-17.5) Hematocrit 55.4 % (39.0-53.0) Mean Corpuscular Volume 83 fL (79-100) Mean Corpuscular Hemoglobin 27 pg (25-35) Mean Corpuscular Hemoglobin Concent 32 g/dL (31-37) Red Cell Distribution Width 19.1 % (11.5-14.5) Platelet Count 146 x10^3/uL (140-400) Neutrophils (%) (Auto) 84 % (31-73) Lymphocytes (%) (Auto) 5 % (24-48) Monocytes (%) (Auto) 10 % (0-9) Eosinophils (%) (Auto) 0 % (0-3) Basophils (%) (Auto) 0 % (0-3) Neutrophils # (Auto) 7.8 x10^3/uL (1.8-7.7) Lymphocytes # (Auto) 0.5 x10^3/uL (1.0-4.8) Monocytes # (Auto) 1.0 x10^3/uL (0.0-1.1) Eosinophils # (Auto) 0.0 x10^3/uL (0.0-0.7) Basophils # (Auto) 0.0 x10^3/uL (0.0-0.2) Segmented Neutrophils % 87 % (35-66) Band Neutrophils % 2 % (0-9) Lymphocytes % 5 % (24-48) Monocytes % 6 % (0-10) Platelet Estimate Adequate (ADEQUATE) Anisocytosis Present Prothrombin Time 14.6 SEC (11.7-14.0) Prothromb Time International Ratio 1.2 (0.8-1.1) D-Dimer (Simin) 0.67 ug/mlFEU (0.00-0.50) Sodium Level 138 mmol/L (136-145) Potassium Level 4.1 mmol/L (3.5-5.1) Chloride Level 96 mmol/L (98-107) Carbon Dioxide Level 37 mmol/L (21-32) Anion Gap 5 (6-14) Blood Urea Nitrogen 13 mg/dL (8-26) Creatinine 0.8 mg/dL (0.7-1.3) Estimated GFR (Cockcroft-Gault) 97.0 BUN/Creatinine Ratio 16 (6-20) Glucose Level 113 mg/dL (70-99) Lactic Acid Level 1.4 mmol/L (0.4-2.0) Calcium Level 8.8 mg/dL (8.5-10.1) Magnesium Level 2.2 mg/dL (1.8-2.4) Total Bilirubin 0.5 mg/dL (0.2-1.0) Aspartate Amino Transf (AST/SGOT) 16 U/L (15-37) Alanine Aminotransferase (ALT/SGPT) 12 U/L (16-63) Alkaline Phosphatase 91 U/L (46-116) Troponin I Quantitative < 0.017 ng/mL (0.000-0.055) HJ-Snk-J-Type Natriuretic Peptide 1452 pg/mL (0-124) Total Protein 7.5 g/dL (6.4-8.2) Albumin 2.7 g/dL (3.4-5.0) Albumin/Globulin Ratio 0.6 (1.0-1.7) Influenza Type A Antigen Negative (NEGATIVE) Influenza Type B Antigen Negative (NEGATIVE) Test 07/21/19 16:30 07/22/19 05:00 07/22/19 08:00 O2 Saturation 88 % (92-99) 98 % (92-99) Arterial Blood pH 7.26 (7.35-7.45) 7.40 (7.35-7.45) Arterial Blood pCO2 at Patient Temp 84 mmHg (35-46) 60 mmHg (35-46) Arterial Blood pO2 at Patient Temp 59 mmHg (65-108) 109 mmHg (65-108) Arterial Blood HCO3 37 mmol/L (21-28) 36 mmol/L (21-28) Arterial Blood Base Excess 5 mmol/L (-3-3) 8 mmol/L (-3-3) FiO2 45 White Blood Count 6.8 x10^3/uL (4.0-11.0) Red Blood Count 6.63 x10^6/uL (4.30-5.70) Hemoglobin 17.6 g/dL (13.0-17.5) Hematocrit 55.2 % (39.0-53.0) Mean Corpuscular Volume 83 fL (79-100) Mean Corpuscular Hemoglobin 27 pg (25-35) Mean Corpuscular Hemoglobin Concent 32 g/dL (31-37) Red Cell Distribution Width 19.0 % (11.5-14.5) Platelet Count 156 x10^3/uL (140-400) Neutrophils (%) (Auto) 89 % (31-73) Lymphocytes (%) (Auto) 6 % (24-48) Monocytes (%) (Auto) 5 % (0-9) Eosinophils (%) (Auto) 0 % (0-3) Basophils (%) (Auto) 0 % (0-3) Neutrophils # (Auto) 6.1 x10^3/uL (1.8-7.7) Lymphocytes # (Auto) 0.4 x10^3/uL (1.0-4.8) Monocytes # (Auto) 0.3 x10^3/uL (0.0-1.1) Eosinophils # (Auto) 0.0 x10^3/uL (0.0-0.7) Basophils # (Auto) 0.0 x10^3/uL (0.0-0.2) Sodium Level 135 mmol/L (136-145) Potassium Level 4.2 mmol/L (3.5-5.1) Chloride Level 95 mmol/L (98-107) Carbon Dioxide Level 35 mmol/L (21-32) Anion Gap 5 (6-14) Blood Urea Nitrogen 18 mg/dL (8-26) Creatinine 0.9 mg/dL (0.7-1.3) Estimated GFR (Cockcroft-Gault) 84.7 BUN/Creatinine Ratio 20 (6-20) Glucose Level 139 mg/dL (70-99) Calcium Level 8.8 mg/dL (8.5-10.1) Total Bilirubin 0.4 mg/dL (0.2-1.0) Aspartate Amino Transf (AST/SGOT) 15 U/L (15-37) Alanine Aminotransferase (ALT/SGPT) 11 U/L (16-63) Alkaline Phosphatase 77 U/L (46-116) Total Protein 7.0 g/dL (6.4-8.2) Albumin 2.5 g/dL (3.4-5.0) Albumin/Globulin Ratio 0.6 (1.0-1.7) Laboratory Tests Test 07/21/19 12:50 07/21/19 16:30 07/22/19 05:00 07/22/19 08:00 O2 Saturation 90 % (92-99) 88 % (92-99) 98 % (92-99) Arterial Blood pH 7.28 (7.35-7.45) 7.26 (7.35-7.45) 7.40 (7.35-7.45) Arterial Blood pCO2 at Patient Temp 67 mmHg (35-46) 84 mmHg (35-46) 60 mmHg (35-46) Arterial Blood pO2 at Patient Temp 59 mmHg (65-108) 59 mmHg (65-108) 109 mmHg (65-108) Arterial Blood HCO3 31 mmol/L (21-28) 37 mmol/L (21-28) 36 mmol/L (21-28) Arterial Blood Base Excess 1 mmol/L (-3-3) 5 mmol/L (-3-3) 8 mmol/L (-3-3) FiO2 40 45 White Blood Count 6.8 x10^3/uL (4.0-11.0) Red Blood Count 6.63 x10^6/uL (4.30-5.70) Hemoglobin 17.6 g/dL (13.0-17.5) Hematocrit 55.2 % (39.0-53.0) Mean Corpuscular Volume 83 fL (79-100) Mean Corpuscular Hemoglobin 27 pg (25-35) Mean Corpuscular Hemoglobin Concent 32 g/dL (31-37) Red Cell Distribution Width 19.0 % (11.5-14.5) Platelet Count 156 x10^3/uL (140-400) Neutrophils (%) (Auto) 89 % (31-73) Lymphocytes (%) (Auto) 6 % (24-48) Monocytes (%) (Auto) 5 % (0-9) Eosinophils (%) (Auto) 0 % (0-3) Basophils (%) (Auto) 0 % (0-3) Neutrophils # (Auto) 6.1 x10^3/uL (1.8-7.7) Lymphocytes # (Auto) 0.4 x10^3/uL (1.0-4.8) Monocytes # (Auto) 0.3 x10^3/uL (0.0-1.1) Eosinophils # (Auto) 0.0 x10^3/uL (0.0-0.7) Basophils # (Auto) 0.0 x10^3/uL (0.0-0.2) Sodium Level 135 mmol/L (136-145) Potassium Level 4.2 mmol/L (3.5-5.1) Chloride Level 95 mmol/L (98-107) Carbon Dioxide Level 35 mmol/L (21-32) Anion Gap 5 (6-14) Blood Urea Nitrogen 18 mg/dL (8-26) Creatinine 0.9 mg/dL (0.7-1.3) Estimated GFR (Cockcroft-Gault) 84.7 BUN/Creatinine Ratio 20 (6-20) Glucose Level 139 mg/dL (70-99) Calcium Level 8.8 mg/dL (8.5-10.1) Total Bilirubin 0.4 mg/dL (0.2-1.0) Aspartate Amino Transf (AST/SGOT) 15 U/L (15-37) Alanine Aminotransferase (ALT/SGPT) 11 U/L (16-63) Alkaline Phosphatase 77 U/L (46-116) Total Protein 7.0 g/dL (6.4-8.2) Albumin 2.5 g/dL (3.4-5.0) Albumin/Globulin Ratio 0.6 (1.0-1.7) Medications Active Scripts Medications Dose Route/Sig Max Daily Dose Days Date Category Montelukast Sodium Tablet (Montelukast Sodium) 10 Mg Tablet 10 Mg PO QHS PRN 01/05/19 Rx Duoneb 0.5-3(2.5) Mg/3 Ml (Albuterol/Ipratropium) 3 Ml Ampul.neb 3 Ml NEB RTQID PRN 01/05/19 Rx Guaifenesin Dm Syrup (Guaifenesin/Dextromethorphan) 5 Ml Syrup 10 Ml PO PRN Q6HRS PRN 01/05/19 Rx Doxycycline Hyclate 100 Mg Tablet 100 Mg PO BID 01/05/19 Rx Carvedilol (Carvedilol) 12.5 Mg Tablet 18.75 Mg PO BIDWMEALS 01/03/19 Reported Aspirin 81 Mg Tab.chew 1 Tab PO DAILY 01/03/19 Reported Losartan-Hctz 100-25 Mg Tab (Losartan/Hydrochlorothiazide) 1 Each Tablet 1 Tab PO DAILY 01/03/19 Reported Eliquis (Apixaban) 5 Mg Tablet 5 Mg PO BID 01/03/19 Reported Crestor (Rosuvastatin Calcium) 40 Mg Tablet 1 Tab PO DAILY 01/03/19 Reported Amlodipine Besylate 10 Mg Tablet 10 Mg PO DAILY 01/03/19 Reported Impression . IMPRESSION: 1. Yopaz-yf-iyfkxlk hypercapnic hypoxemic respiratory failure. 2. Acute exacerbation of chronic obstructive pulmonary disease. 3. CT chest revealing no evidence of pulmonary embolism. There is some increased lung markings compatible with mild interstitial lung disease. No consolidation is seen. 4. Acute exacerbation of chronic obstructive pulmonary disease. 5. Chronic atrial fibrillation. 6. Coronary artery disease with previous stent placement. 7. Previous abdominal aortic aneurysm repair. Plan . PT BETTER OK TO TRANFER OUT ICU WILL NEED HOME AVAPS/BIPAP 1. We will continue current BiPAP PRN at at NOC, ABG compensated this am C02 60 W/ compensated PH 2. cont. steroids with taper 3. cont. Bronchodilators and cont. ABX currently on azithromycin, D/C rocephin 4. I will have social service director work on obtaining a home on AVAPS or BiPAP. The patient has had 2 admissions within the last 6 months with hypercapnic respiratory failure. He was last here on 01/03/2019. 5. The patient instructed to avoid secondhand smoke fumes and toxins. 6. The patient will undergo a 6-minute walk prior to discharge. 7. Deep venous thrombosis and gastrointestinal prophylaxis. WOLF MARIE MD Jul 22, 2019 12:04
[2019-07-22] MEDS: amLODIPine BESYLATE 10 MG TABLET PO SCH (12:52)
[2019-07-22] MEDS: AZITHROMYCIN 500 MG in IV NORMAL SALINE 250ML 250 ML IV SCH (12:52)
--- NOTE | 2019-07-22 13:07 | PDOC ---
[employer] PROGRESS NOTE Chief Complaint Chief Complaint Respiratory failure History of Present Illness History of Present Illness Patient is a 63 year old male presenting with chief complaint of shortness of breath cough productive of green-yellow sputum feels feverish recent trip to [place] just got back has a history of COPD on home oxygen at night has required BiPAP in the past for respiratory failure. Denies chest pain history limited by acuity 07/22: Patient seen and examined in the ICU, patient appeared in good spirits and was dressed in jeans and sitting up. Patient's O2 saturation is 98% on Oxygen PNC. Vitals/I&O Vitals/I&O: Vital Signs Date Time Temp Pulse Resp B/P (MAP) Pulse Ox O2 Delivery O2 Flow Rate FiO2 07/22/19 12:52 65 166/71 07/22/19 12:23 97 Nasal Cannula 3.0 07/22/19 12:00 21 07/22/19 05:00 98.0 98.0 I & O 07/21/19 07/21/19 07/22/19 15:00 23:00 07:00 Intake Total 300 ml 450 ml 250 ml Output Total 1125 ml 800 ml 800 ml Balance -825 ml -350 ml -550 ml Physical Exam General: Alert, Oriented X3, Cooperative, mild distress Heart: Regular rate, Normal S1, Normal S2, No murmurs Lungs: Wheezing Abdomen: Normal bowel sounds Extremities: No cyanosis Skin: No rashes, No breakdown, No significant lesion Labs Labs: Laboratory Tests Test 07/21/19 16:30 07/22/19 05:00 07/22/19 08:00 O2 Saturation 88 % (92-99) 98 % (92-99) Arterial Blood pH 7.26 (7.35-7.45) 7.40 (7.35-7.45) Arterial Blood pCO2 at Patient Temp 84 mmHg (35-46) 60 mmHg (35-46) Arterial Blood pO2 at Patient Temp 59 mmHg (65-108) 109 mmHg (65-108) Arterial Blood HCO3 37 mmol/L (21-28) 36 mmol/L (21-28) Arterial Blood Base Excess 5 mmol/L (-3-3) 8 mmol/L (-3-3) FiO2 45 White Blood Count 6.8 x10^3/uL (4.0-11.0) Red Blood Count 6.63 x10^6/uL (4.30-5.70) Hemoglobin 17.6 g/dL (13.0-17.5) Hematocrit 55.2 % (39.0-53.0) Mean Corpuscular Volume 83 fL (79-100) Mean Corpuscular Hemoglobin 27 pg (25-35) Mean Corpuscular Hemoglobin Concent 32 g/dL (31-37) Red Cell Distribution Width 19.0 % (11.5-14.5) Platelet Count 156 x10^3/uL (140-400) Neutrophils (%) (Auto) 89 % (31-73) Lymphocytes (%) (Auto) 6 % (24-48) Monocytes (%) (Auto) 5 % (0-9) Eosinophils (%) (Auto) 0 % (0-3) Basophils (%) (Auto) 0 % (0-3) Neutrophils # (Auto) 6.1 x10^3/uL (1.8-7.7) Lymphocytes # (Auto) 0.4 x10^3/uL (1.0-4.8) Monocytes # (Auto) 0.3 x10^3/uL (0.0-1.1) Eosinophils # (Auto) 0.0 x10^3/uL (0.0-0.7) Basophils # (Auto) 0.0 x10^3/uL (0.0-0.2) Sodium Level 135 mmol/L (136-145) Potassium Level 4.2 mmol/L (3.5-5.1) Chloride Level 95 mmol/L (98-107) Carbon Dioxide Level 35 mmol/L (21-32) Anion Gap 5 (6-14) Blood Urea Nitrogen 18 mg/dL (8-26) Creatinine 0.9 mg/dL (0.7-1.3) Estimated GFR (Cockcroft-Gault) 84.7 BUN/Creatinine Ratio 20 (6-20) Glucose Level 139 mg/dL (70-99) Calcium Level 8.8 mg/dL (8.5-10.1) Total Bilirubin 0.4 mg/dL (0.2-1.0) Aspartate Amino Transf (AST/SGOT) 15 U/L (15-37) Alanine Aminotransferase (ALT/SGPT) 11 U/L (16-63) Alkaline Phosphatase 77 U/L (46-116) Total Protein 7.0 g/dL (6.4-8.2) Albumin 2.5 g/dL (3.4-5.0) Albumin/Globulin Ratio 0.6 (1.0-1.7) Review of Systems Review of Systems: Patient denies numbness/tingling, weakness Assessment and Plan Assessmemt and Plan Problems Medical Problems: (1) Acute respiratory failure Status: Acute Assessment: Respiratory failure Plan: 1. ICU monitoring 2. IV steroids 3. IV antibiotics 4. Breathing treatment 5. pulmonary following 6. DVT prophylaxis 7. full code Comment Review of Relevant I have reviewed the following items ivan (where applicable) has been applied. Medications: Current Medications Medications (Trade) Dose Ordered Sig/Carlie Route PRN Reason Start Time Stop Time Status Last Admin Dose Admin Albuterol/ Ipratropium (Duoneb) 3 ml RTQID NEB 07/21/19 16:00 07/22/19 12:23 Methylprednisolone Sodium Succinate (SOLU-Medrol 40MG VIAL) 40 mg Q8HRS IV 07/21/19 14:00 07/22/19 12:52 Azithromycin 500 mg/Sodium Chloride 250 ml @ 250 mls/hr Q24H IV 07/21/19 13:30 07/22/19 12:52 Amlodipine Besylate (Norvasc) 10 mg DAILY PO 07/22/19 09:00 07/22/19 12:52 Apixaban (Eliquis) 5 mg BID PO 07/21/19 21:00 07/22/19 10:12 Aspirin (Children'S Aspirin) 81 mg DAILY PO 07/22/19 09:00 07/22/19 10:12 Carvedilol (Coreg) 18.75 mg BIDWMEALS PO 07/21/19 17:00 07/21/19 17:46 Montelukast Sodium (Singulair) 10 mg QHS PO 07/21/19 21:00 07/21/19 21:10 Losartan Potassium (Cozaar) 100 mg DAILY PO 07/22/19 09:00 07/22/19 10:12 Atorvastatin Calcium (Lipitor) 80 mg QHS PO 07/21/19 21:00 07/21/19 21:10 Famotidine (Pepcid) 20 mg BID PO 07/21/19 21:00 07/22/19 10:12 Docusate Sodium (Colace) 100 mg BID PO 07/21/19 21:00 07/21/19 21:10 Info (Anti-Coagulation Monitoring By Pharmacy) 1 each PRN DAILY PRN MC SEE COMMENTS 07/21/19 16:45 07/22/19 08:43 Hydrochlorothiazide (Hydrodiuril) 25 mg DAILY PO 07/22/19 09:00 07/22/19 10:11 MARAL BARKSDALE III DO Jul 22, 2019 13:07
--- NOTE | 2019-07-22 15:16 | CARD ---
MR#: [id number] Date of Study: 07/22/2019 Ordering Physician: WOLF MARIE, Referring Physician: WOLF MARIE Tech: Fadumo Manning [facility] APPROVED REPORT EXAM: Two-dimensional and M-mode echocardiogram with Doppler and color Doppler. Other Information Quality : Technically LimitedHR: 65bpm Rhythm : NSRTechnically limited study due to body habitus & COPD. INDICATION Congestive Heart Failure 2D DIMENSIONS RVDd4.9 (2.9-3.5cm)Left Atrium(2D)5.0 (1.6-4.0cm) IVSd1.3 (0.7-1.1cm)Aortic Root(2D)3.8 (2.0-3.7cm) LVDd5.4 (3.9-5.9cm)LVOT Diameter2.4 (1.8-2.4cm) PWd1.0 (0.7-1.1cm)LVDs4.0 (2.5-4.0cm) FS (%) 26.6 %SV72.5 ml LVEF(%)54.6 (>50%) M-Mode DIMENSIONS Left Atrium(MM)4.58 (2.5-4.0cm)Aortic Root4.07 (2.2-3.7cm) Aortic Valve AoV Peak Ugo.148.7cm/sAoV VTI32.0cm AO Peak GR.8.8mmHgLVOT VTI 31.97cm AO Mean GR.5mmHgAVA (VTI)3.50cm2 Mitral Valve MV E Sgnvokov912.5cm/sMV DECEL [id number] MV A Sgnlznhl50.7cm/sE/A Ratio1.1 MV A Pkhjilkn10gr TDI Lateral E' P. V9.59cm/sMedial E' P. V9.91cm/s E/Lateral E'10.5E/Medial E'10.1 LEFT VENTRICLE The left ventricle is normal size. There is mild concentric left ventricular hypertrophy. The left ve ntricular systolic function is normal and the ejection fraction is within normal range. The Ejection Fraction is 55-60%. There is normal LV segmental wall motion. Transmitral Doppler flow pattern is Gra de I-abnormal relaxation pattern. RIGHT VENTRICLE The right ventricle is mildly dilated. There is normal right ventricular wall thickness. The right ve ntricular systolic function is normal. ATRIA The left atrium is mildly dilated. The right atrium is mildly dilated. The interatrial septum is inta ct with no evidence for an atrial septal defect or patent foramen ovale as noted on 2-D or Doppler im aging. AORTIC VALVE The aortic valve is normal in structure and function. The aortic valve is trileaflet. Doppler and Col or Flow revealed no significant aortic regurgitation. There is no significant aortic valvular stenosi s. MITRAL VALVE The mitral valve is normal in structure and function. There is no evidence of mitral valve prolapse. There is no mitral valve stenosis. Doppler and Color Flow revealed trace mitral valve regurgitation. TRICUSPID VALVE The tricuspid valve is normal in structure and function. Doppler and Color Flow revealed trace tricus pid regurgitation. There is no tricuspid valve prolapse or vegetation. There is no tricuspid valve st enosis. PULMONIC VALVE The pulmonic valve is not well visualized. GREAT VESSELS The aortic root is mildly enlarged. The IVC is dilated and collapses <50% with inspiration. PERICARDIAL EFFUSION There is no evidence of significant pericardial effusion. Critical Notification Critical Value: No <Conclusion> The left ventricle is normal size. The left ventricular systolic function is normal and the ejection fraction is within normal range. The Ejection Fraction is 55-60%. There is mild concentric left ventricular hypertrophy. Doppler and Color Flow revealed no significant aortic regurgitation. There is no significant aortic valvular stenosis. Doppler and Color Flow revealed trace mitral valve regurgitation. Doppler and Color Flow revealed trace tricuspid regurgitation. The aortic root is mildly enlarged. Signed by : Khurram Kruger MD Electronically Approved : 07/22/2019 15:16:27
[2019-07-22] MEDS: ATORVASTATIN CALCIUM 40 MG TABLET. PO SCH (20:53)
[2019-07-22] MEDS: MONTELUKAST SODIUM 10 MG TABLET. PO SCH (20:54)
[2019-07-23] VITALS: BP 142/58
[2019-07-23 04:00] VITALS: BP 153/58
[2019-07-23] MEDS: methylPREDNISolone SOD SUCC PF 40 MG/ML VIAL. IV SCH (05:46)
[2019-07-23] MEDS: IPRATRPIUM/ALBUTEROL 0.5/2.5MG 3 ML NEBU. NEB SCH ×3 (07:56→15:58)
[2019-07-23] MEDS: BUDESONIDE 0.5 MG/2 ML NEBU. NEB SCH (07:57)
[2019-07-23 08:00] VITALS: BP 138/60
[2019-07-23] MEDS: CARVEDILOL 12.5 MG TABLET. PO SCH (08:00)
[2019-07-23] MEDS: DOCUSATE SODIUM 100 MG CAPSULE. PO SCH (09:00)
[2019-07-23] MEDS: LACTOBACILLUS RHAMNOSUS GG 1 CAPSULE. PO SCH (09:00)
--- NOTE | 2019-07-23 09:00 | PDOC ---
PULMONARY PROGRESS NOTES Subjective Pt. is feeling much better today, off BIPAP this am and on N/C Wore BIPAP overnight Denies increased SOA or increased cough Vitals Vital Signs Date Time Temp Pulse Resp B/P (MAP) Pulse Ox O2 Delivery O2 Flow Rate FiO2 07/23/19 08:00 Bi-pap 07/23/19 08:00 98.1 44 24 138/60 (86) 100 98.1 07/23/19 07:55 3.0 ROS: No Nausea, No Chest Pain, No Abdominal Pain, No Increase Cough General: Alert, Oriented X4, No acute distress Lungs: Wheezing Cardiovascular: S1, S2 Abdomen: Soft, Non-tender Neuro Exam: Alert, Oriented Extremities: No Edema Labs Laboratory Tests Test 07/21/19 09:20 07/21/19 09:28 07/21/19 10:03 07/21/19 12:50 O2 Saturation 86 % (92-99) 90 % (92-99) Arterial Blood pH 7.26 (7.35-7.45) 7.28 (7.35-7.45) Arterial Blood pCO2 at Patient Temp 89 mmHg (35-46) 67 mmHg (35-46) Arterial Blood pO2 at Patient Temp 55 mmHg (65-108) 59 mmHg (65-108) Arterial Blood HCO3 39 mmol/L (21-28) 31 mmol/L (21-28) Arterial Blood Base Excess 7 mmol/L (-3-3) 1 mmol/L (-3-3) FiO2 50 40 White Blood Count 9.3 x10^3/uL (4.0-11.0) Red Blood Count 6.64 x10^6/uL (4.30-5.70) Hemoglobin 17.8 g/dL (13.0-17.5) Hematocrit 55.4 % (39.0-53.0) Mean Corpuscular Volume 83 fL (79-100) Mean Corpuscular Hemoglobin 27 pg (25-35) Mean Corpuscular Hemoglobin Concent 32 g/dL (31-37) Red Cell Distribution Width 19.1 % (11.5-14.5) Platelet Count 146 x10^3/uL (140-400) Neutrophils (%) (Auto) 84 % (31-73) Lymphocytes (%) (Auto) 5 % (24-48) Monocytes (%) (Auto) 10 % (0-9) Eosinophils (%) (Auto) 0 % (0-3) Basophils (%) (Auto) 0 % (0-3) Neutrophils # (Auto) 7.8 x10^3/uL (1.8-7.7) Lymphocytes # (Auto) 0.5 x10^3/uL (1.0-4.8) Monocytes # (Auto) 1.0 x10^3/uL (0.0-1.1) Eosinophils # (Auto) 0.0 x10^3/uL (0.0-0.7) Basophils # (Auto) 0.0 x10^3/uL (0.0-0.2) Segmented Neutrophils % 87 % (35-66) Band Neutrophils % 2 % (0-9) Lymphocytes % 5 % (24-48) Monocytes % 6 % (0-10) Platelet Estimate Adequate (ADEQUATE) Anisocytosis Present Prothrombin Time 14.6 SEC (11.7-14.0) Prothromb Time International Ratio 1.2 (0.8-1.1) D-Dimer (Simin) 0.67 ug/mlFEU (0.00-0.50) Sodium Level 138 mmol/L (136-145) Potassium Level 4.1 mmol/L (3.5-5.1) Chloride Level 96 mmol/L (98-107) Carbon Dioxide Level 37 mmol/L (21-32) Anion Gap 5 (6-14) Blood Urea Nitrogen 13 mg/dL (8-26) Creatinine 0.8 mg/dL (0.7-1.3) Estimated GFR (Cockcroft-Gault) 97.0 BUN/Creatinine Ratio 16 (6-20) Glucose Level 113 mg/dL (70-99) Lactic Acid Level 1.4 mmol/L (0.4-2.0) Calcium Level 8.8 mg/dL (8.5-10.1) Magnesium Level 2.2 mg/dL (1.8-2.4) Total Bilirubin 0.5 mg/dL (0.2-1.0) Aspartate Amino Transf (AST/SGOT) 16 U/L (15-37) Alanine Aminotransferase (ALT/SGPT) 12 U/L (16-63) Alkaline Phosphatase 91 U/L (46-116) Troponin I Quantitative < 0.017 ng/mL (0.000-0.055) SF-Jro-J-Type Natriuretic Peptide 1452 pg/mL (0-124) Total Protein 7.5 g/dL (6.4-8.2) Albumin 2.7 g/dL (3.4-5.0) Albumin/Globulin Ratio 0.6 (1.0-1.7) Influenza Type A Antigen Negative (NEGATIVE) Influenza Type B Antigen Negative (NEGATIVE) Test 07/21/19 16:30 07/22/19 05:00 07/22/19 08:00 O2 Saturation 88 % (92-99) 98 % (92-99) Arterial Blood pH 7.26 (7.35-7.45) 7.40 (7.35-7.45) Arterial Blood pCO2 at Patient Temp 84 mmHg (35-46) 60 mmHg (35-46) Arterial Blood pO2 at Patient Temp 59 mmHg (65-108) 109 mmHg (65-108) Arterial Blood HCO3 37 mmol/L (21-28) 36 mmol/L (21-28) Arterial Blood Base Excess 5 mmol/L (-3-3) 8 mmol/L (-3-3) FiO2 45 White Blood Count 6.8 x10^3/uL (4.0-11.0) Red Blood Count 6.63 x10^6/uL (4.30-5.70) Hemoglobin 17.6 g/dL (13.0-17.5) Hematocrit 55.2 % (39.0-53.0) Mean Corpuscular Volume 83 fL (79-100) Mean Corpuscular Hemoglobin 27 pg (25-35) Mean Corpuscular Hemoglobin Concent 32 g/dL (31-37) Red Cell Distribution Width 19.0 % (11.5-14.5) Platelet Count 156 x10^3/uL (140-400) Neutrophils (%) (Auto) 89 % (31-73) Lymphocytes (%) (Auto) 6 % (24-48) Monocytes (%) (Auto) 5 % (0-9) Eosinophils (%) (Auto) 0 % (0-3) Basophils (%) (Auto) 0 % (0-3) Neutrophils # (Auto) 6.1 x10^3/uL (1.8-7.7) Lymphocytes # (Auto) 0.4 x10^3/uL (1.0-4.8) Monocytes # (Auto) 0.3 x10^3/uL (0.0-1.1) Eosinophils # (Auto) 0.0 x10^3/uL (0.0-0.7) Basophils # (Auto) 0.0 x10^3/uL (0.0-0.2) Sodium Level 135 mmol/L (136-145) Potassium Level 4.2 mmol/L (3.5-5.1) Chloride Level 95 mmol/L (98-107) Carbon Dioxide Level 35 mmol/L (21-32) Anion Gap 5 (6-14) Blood Urea Nitrogen 18 mg/dL (8-26) Creatinine 0.9 mg/dL (0.7-1.3) Estimated GFR (Cockcroft-Gault) 84.7 BUN/Creatinine Ratio 20 (6-20) Glucose Level 139 mg/dL (70-99) Calcium Level 8.8 mg/dL (8.5-10.1) Total Bilirubin 0.4 mg/dL (0.2-1.0) Aspartate Amino Transf (AST/SGOT) 15 U/L (15-37) Alanine Aminotransferase (ALT/SGPT) 11 U/L (16-63) Alkaline Phosphatase 77 U/L (46-116) Total Protein 7.0 g/dL (6.4-8.2) Albumin 2.5 g/dL (3.4-5.0) Albumin/Globulin Ratio 0.6 (1.0-1.7) Medications Active Scripts Medications Dose Route/Sig Max Daily Dose Days Date Category Montelukast Sodium Tablet (Montelukast Sodium) 10 Mg Tablet 10 Mg PO QHS PRN 01/05/19 Rx Duoneb 0.5-3(2.5) Mg/3 Ml (Albuterol/Ipratropium) 3 Ml Ampul.neb 3 Ml NEB RTQID PRN 01/05/19 Rx Guaifenesin Dm Syrup (Guaifenesin/Dextromethorphan) 5 Ml Syrup 10 Ml PO PRN Q6HRS PRN 01/05/19 Rx Doxycycline Hyclate 100 Mg Tablet 100 Mg PO BID 01/05/19 Rx Carvedilol (Carvedilol) 12.5 Mg Tablet 18.75 Mg PO BIDWMEALS 01/03/19 Reported Aspirin 81 Mg Tab.chew 1 Tab PO DAILY 01/03/19 Reported Losartan-Hctz 100-25 Mg Tab (Losartan/Hydrochlorothiazide) 1 Each Tablet 1 Tab PO DAILY 01/03/19 Reported Eliquis (Apixaban) 5 Mg Tablet 5 Mg PO BID 01/03/19 Reported Crestor (Rosuvastatin Calcium) 40 Mg Tablet 1 Tab PO DAILY 01/03/19 Reported Amlodipine Besylate 10 Mg Tablet 10 Mg PO DAILY 01/03/19 Reported Impression . IMPRESSION: 1. Hvdyy-nw-bmxenem hypercapnic hypoxemic respiratory failure. 2. Acute exacerbation of chronic obstructive pulmonary disease. 3. CT chest revealing no evidence of pulmonary embolism. There is some increased lung markings compatible with mild interstitial lung disease. No consolidation is seen. 4. Acute exacerbation of chronic obstructive pulmonary disease. 5. Chronic atrial fibrillation. 6. Coronary artery disease with previous stent placement. 7. Previous abdominal aortic aneurysm repair. Plan . PT BETTER OK TO TRANFER OUT ICU WILL NEED HOME AVAPS/BIPAP 1. We will continue current BiPAP PRN at at [facility], ABG compensated this am C02 [id number] W/ compensated PH 2. cont. steroids with taper 3. cont. Bronchodilators and cont. ABX currently on azithromycin, D/C rocephin 4. I will have addiction social worker work on obtaining a home on AVAPS or BiPAP. The patient has had 2 admissions within the last 6 months with hypercapnic respiratory failure. He was last here on 01/03/2019. 5. The patient instructed to avoid secondhand smoke fumes and toxins. 6. The patient will undergo a 6-minute walk prior to discharge. 7. Deep venous thrombosis and gastrointestinal prophylaxis. WOLF MARIE MD Jul 23, 2019 09:00
[2019-07-23] MEDS: FAMOTIDINE 20 MG TABLET. PO SCH (09:57)
[2019-07-23] MEDS: hydroCHLOROthiazide 25 MG TABLET PO SCH (09:57)
[2019-07-23] MEDS: APIXABAN 5 MG TABLET. PO SCH (09:57)
[2019-07-23] MEDS: amLODIPine BESYLATE 10 MG TABLET PO SCH (09:58)
[2019-07-23] MEDS: LOSARTAN POTASSIUM 50 MG TABLET. PO SCH (09:58)
[2019-07-23] MEDS: ASPIRIN CHEWABLE 81 MG TABLET. PO SCH (09:58)
[2019-07-23] MEDS: ANTI-COAG MONITOR BY PHARMACY. MC PRN (10:01)
--- NOTE | 2019-07-23 10:51 | NUR ---
Patient is no receiving Flu shot at [facility]-- will received "stronger" version at PCP office. RN called Rx to verify that we do not give Quad strength. Patient possibly being d/c today after pulmonology rounds.
--- NOTE | 2019-07-23 11:24 | PDOC ---
[employer] PROGRESS NOTE Chief Complaint Chief Complaint Respiratory failure History of Present Illness History of Present Illness Patient is a 63 year old male presenting with chief complaint of shortness of breath cough productive of green-yellow sputum feels feverish recent trip to [place] just got back has a history of COPD on home oxygen at night has required BiPAP in the past for respiratory failure. Denies chest pain history limited by acuity 07/22: Patient seen and examined in the ICU, patient appeared in good spirits and was dressed in jeans and sitting up. Patient's O2 saturation is 98% on Oxygen PNC. Vitals/I&O Vitals/I&O: Vital Signs Date Time Temp Pulse Resp B/P (MAP) Pulse Ox O2 Delivery O2 Flow Rate FiO2 07/23/19 09:58 57 138/60 07/23/19 08:00 Bi-pap 07/23/19 08:00 98.1 24 100 98.1 07/23/19 07:55 3.0 I & O 07/22/19 07/22/19 07/23/19 15:00 23:00 07:00 Intake Total 750 ml Output Total 975 ml 1100 ml Balance -225 ml -1100 ml Physical Exam General: Alert, Oriented X3, Cooperative, mild distress Heart: Regular rate, Normal S1, Normal S2, No murmurs Lungs: Wheezing Abdomen: Normal bowel sounds Extremities: No cyanosis Skin: No rashes, No breakdown, No significant lesion Review of Systems Review of Systems: Complains of shortness of breath Complains of weakness Assessment and Plan Assessmemt and Plan Problems Medical Problems: (1) Acute respiratory failure Status: Acute Assessment: Respiratory failure Plan: 1. ICU monitoring 2. IV steroids 3. IV antibiotics 4. Breathing treatment 5. pulmonary following 6. DVT prophylaxis 7. full code Comment Review of Relevant I have reviewed the following items ivan (where applicable) has been applied. MARAL BARKSDALE III DO Jul 23, 2019 11:24
[2019-07-23 12:00] VITALS: BP 145/62
[2019-07-23] MEDS ORDERED: AZITHROMYCIN 250 MG TABLET. PO ONE (14:30)
--- NOTE | 2019-07-23 15:57 | PDOC ---
PROGRESS NOTES Subjective Subjective Patient seen and examined He looks and feels better today. Objective Objective Vital Signs Date Time Temp Pulse Resp B/P (MAP) Pulse Ox O2 Delivery O2 Flow Rate FiO2 07/23/19 12:00 68 24 145/62 (89) 95 Room Air 07/23/19 08:00 98.1 98.1 07/23/19 07:55 3.0 Intake and Output 07/23/19 07:00 Intake Total 750 ml Output Total 2075 ml Balance -1325 ml Intake Oral 500 ml IV Total 250 ml Output Urine Total 2075 ml Physical Exam Abdomen: Normal bowel sounds Heart: Regular rate General: mild distress Lungs: Other (mildly decreased breath sounds) Assessment Assessment Problems Medical Problems: (1) Acute respiratory failure Status: Acute 1. Acute hypoxic respiratory failure. The patient looks and feels much better today. Will continue treatment as per the pulmonary service. 2. Possible contributing factors of heart failure. No ischemic EKG changes. ECHO shows normal LV systolic function. Contin gram shows normal LV systolic function. Continuing present treatment. Ue present treatment. 3. History of coronary artery disease. No chest pain. 4. History of atrial fibrillation status post ablation. In sinus rhythm. Continue to monitor. 5. Report history of AAA repair. Comment Review of Relevant I have reviewed the following items ivan (where applicable) has been applied. Labs Laboratory Tests Test 07/21/19 16:30 07/22/19 05:00 07/22/19 08:00 O2 Saturation 88 % (92-99) 98 % (92-99) Arterial Blood pH 7.26 (7.35-7.45) 7.40 (7.35-7.45) Arterial Blood pCO2 at Patient Temp 84 mmHg (35-46) 60 mmHg (35-46) Arterial Blood pO2 at Patient Temp 59 mmHg (65-108) 109 mmHg (65-108) Arterial Blood HCO3 37 mmol/L (21-28) 36 mmol/L (21-28) Arterial Blood Base Excess 5 mmol/L (-3-3) 8 mmol/L (-3-3) FiO2 45 White Blood Count 6.8 x10^3/uL (4.0-11.0) Red Blood Count 6.63 x10^6/uL (4.30-5.70) Hemoglobin 17.6 g/dL (13.0-17.5) Hematocrit 55.2 % (39.0-53.0) Mean Corpuscular Volume 83 fL (79-100) Mean Corpuscular Hemoglobin 27 pg (25-35) Mean Corpuscular Hemoglobin Concent 32 g/dL (31-37) Red Cell Distribution Width 19.0 % (11.5-14.5) Platelet Count 156 x10^3/uL (140-400) Neutrophils (%) (Auto) 89 % (31-73) Lymphocytes (%) (Auto) 6 % (24-48) Monocytes (%) (Auto) 5 % (0-9) Eosinophils (%) (Auto) 0 % (0-3) Basophils (%) (Auto) 0 % (0-3) Neutrophils # (Auto) 6.1 x10^3/uL (1.8-7.7) Lymphocytes # (Auto) 0.4 x10^3/uL (1.0-4.8) Monocytes # (Auto) 0.3 x10^3/uL (0.0-1.1) Eosinophils # (Auto) 0.0 x10^3/uL (0.0-0.7) Basophils # (Auto) 0.0 x10^3/uL (0.0-0.2) Sodium Level 135 mmol/L (136-145) Potassium Level 4.2 mmol/L (3.5-5.1) Chloride Level 95 mmol/L (98-107) Carbon Dioxide Level 35 mmol/L (21-32) Anion Gap 5 (6-14) Blood Urea Nitrogen 18 mg/dL (8-26) Creatinine 0.9 mg/dL (0.7-1.3) Estimated GFR (Cockcroft-Gault) 84.7 BUN/Creatinine Ratio 20 (6-20) Glucose Level 139 mg/dL (70-99) Calcium Level 8.8 mg/dL (8.5-10.1) Total Bilirubin 0.4 mg/dL (0.2-1.0) Aspartate Amino Transf (AST/SGOT) 15 U/L (15-37) Alanine Aminotransferase (ALT/SGPT) 11 U/L (16-63) Alkaline Phosphatase 77 U/L (46-116) Total Protein 7.0 g/dL (6.4-8.2) Albumin 2.5 g/dL (3.4-5.0) Albumin/Globulin Ratio 0.6 (1.0-1.7) Microbiology 07/21/19 Blood Culture - Preliminary, Resulted NO GROWTH AFTER 2 DAYS Medications Current Medications Albuterol Sulfate (Ventolin Neb Soln) 10 mg 1X ONCE CONT NEB Last administered on 07/21/19at 09:58; Start 07/21/19 at 09:30; Stop 07/21/19 at 09:31; Status DC Methylprednisolone Sodium Succinate (SOLU-Medrol 125MG VIAL) 125 mg 1X ONCE IV Last administered on 07/21/19at 09:38; Start 07/21/19 at 09:30; Stop 07/21/19 at 09:31; Status DC Ceftriaxone Sodium (Rocephin) 1 gm 1X ONCE IVP Last administered on 07/21/19at 09:53; Start 07/21/19 at 09:45; Stop 07/21/19 at 09:46; Status DC Doxycycline Hyclate 100 mg/ Dextrose 100 ml @ 50 mls/hr 1X ONCE IV Last administered on 07/21/19at 09:53; Start 07/21/19 at 09:45; Stop 07/21/19 at 11:44; Status DC Sodium Chloride 1,000 ml @ 2,460 mls/hr Q25M IV Last administered on 07/21/19at 09:57; Start 07/21/19 at 09:50; Stop 07/21/19 at 10:50; Status DC Albuterol/ Ipratropium (Duoneb) 3 ml RTQID NEB Last administered on 07/21/19at 12:40; Start 07/21/19 at 12:00; Stop 07/21/19 at 12:54; Status DC Iohexol (Omnipaque 350 Mg/ml) 100 ml 1X ONCE IV Last administered on 07/21/19at 10:52; Start 07/21/19 at 10:30; Stop 07/21/19 at 10:31; Status DC Info (CONTRAST GIVEN -- Rx MONITORING) 1 each PRN DAILY PRN MC SEE COMMENTS; Start 07/21/19 at 10:30; Stop 07/23/19 at 10:29; Status DC Influenza Virus Vaccine Quadrival (Afluria Quad 2019-20 (3yr Up) Syringe) 0.5 ml ONCE ONCE VAX IM ; Start 07/21/19 at 13:00; Stop 07/21/19 at 13:01; Status DC Albuterol/ Ipratropium (Duoneb) 3 ml RTQID NEB Last administered on 07/23/19at 11:58; Start 07/21/19 at 16:00 Budesonide (Pulmicort) 0.5 mg RTBID NEB Last administered on 07/23/19at 07:57; Start 07/21/19 at 13:00 Methylprednisolone Sodium Succinate (SOLU-Medrol 40MG VIAL) 40 mg Q8HRS IV Last administered on 07/23/19at 05:46; Start 07/21/19 at 14:00; Stop 07/23/19 at 13:16; Status DC Furosemide (Lasix) 40 mg 1X ONCE IVP Last administered on 07/21/19at 13:16; Start 07/21/19 at 13:00; Stop 07/21/19 at 13:01; Status DC Ceftriaxone Sodium (Rocephin) 1 gm Q24H IVP ; Start 07/22/19 at 09:00; Stop 07/21/19 at 16:28; Status DC Azithromycin 500 mg/Sodium Chloride 250 ml @ 250 mls/hr Q24H IV Last administered on 07/22/19at 12:52; Start 07/21/19 at 13:30; Stop 07/23/19 at 13:16; Status DC Piperacillin Sod/ Tazobactam Sod 3.375 gm/Sodium Chloride 50 ml @ 100 mls/hr Q6HRS IV ; Start 07/21/19 at 18:00; Stop 07/21/19 at 17:43; Status DC Amlodipine Besylate (Norvasc) 10 mg DAILY PO Last administered on 07/23/19at 09:58; Start 07/22/19 at 09:00 Apixaban (Eliquis) 5 mg BID PO Last administered on 07/23/19at 09:57; Start 07/21/19 at 21:00 Aspirin (Children'S Aspirin) 81 mg DAILY PO Last administered on 07/23/19at 09:58; Start 07/22/19 at 09:00 Carvedilol (Coreg) 18.75 mg BIDWMEALS PO Last administered on 07/21/19at 17:46; Start 07/21/19 at 17:00 Doxycycline Hyclate (Vibra-Tab) 100 mg BID PO ; Start 07/21/19 at 21:00; Stop 07/21/19 at 17:43; Status DC Guaifenesin (Robitussin Dm) 10 ml PRN Q6HRS PRN PO COUGH; Start 07/21/19 at 16:30 Albuterol Sulfate (Ventolin Neb Soln) 2.5 mg PRN Q6HRS PRN NEB SHORTNESS OF BREATH; Start 07/21/19 at 16:45 Montelukast Sodium (Singulair) 10 mg QHS PO Last administered on 07/22/19at 20:54; Start 07/21/19 at 21:00 Losartan Potassium (Cozaar) 100 mg DAILY PO Last administered on 07/23/19at 09:58; Start 07/22/19 at 09:00 Atorvastatin Calcium (Lipitor) 80 mg QHS PO Last administered on 07/22/19at 20:53; Start 07/21/19 at 21:00 Lorazepam (Ativan Inj) 0.5 mg PRN Q6HRS PRN IV ANXIETY / AGITATION; Start 07/21/19 at 16:30 Ondansetron HCl (Zofran) 4 mg PRN Q6HRS PRN IV NAUSEA/VOMITING 1ST CHOICE; Start 07/21/19 at 16:30 Prochlorperazine Edisylate (Compazine) 5 mg PRN Q6HRS PRN IV NAUSEA/VOMITING 2ND CHOICE; Start 07/21/19 at 16:30 Al Hydroxide/Mg Hydroxide (Mylanta Plus Xs) 30 ml PRN Q3HRS PRN PO HEARTBURN / GAS; Start 07/21/19 at 16:30 Calcium Carbonate/ Glycine (Tums) 500 mg PRN Q3HRS PRN PO HEARTBURN / GAS; Start 07/21/19 at 16:30 Famotidine (Pepcid) 20 mg BID PO Last administered on 07/23/19at 09:57; Start 07/21/19 at 21:00 Sodium Chloride (Normal Saline Flush) 3 ml QSHIFT PRN IV AFTER MEDS AND BLOOD DRAWS; Start 07/21/19 at 16:30 Docusate Sodium (Colace) 100 mg BID PO Last administered on 07/22/19at 20:54; Start 07/21/19 at 21:00 Magnesium Hydroxide (Milk Of Magnesia) 2,400 mg PRN Q12HR PRN PO CONSTIPATION; Start 07/21/19 at 16:30 Bisacodyl (Dulcolax Supp) 10 mg PRN DAILY PRN IA CONSTIPATION; Start 07/21/19 at 16:30 Info (Anti-Coagulation Monitoring By Pharmacy) 1 each PRN DAILY PRN MC SEE COMMENTS Last administered on 07/23/19at 10:01; Start 07/21/19 at 16:45 Hydrochlorothiazide (Hydrodiuril) 25 mg DAILY PO Last administered on 07/23/19at 09:57; Start 07/22/19 at 09:00 Lactobacillus Rhamnosus (Culturelle) 1 cap BID PO Last administered on 07/22/19at 20:54; Start 07/22/19 at 09:00 Azithromycin (Zithromax) 500 mg 1X ONCE PO Last administered on 07/23/19at 14:43; Start 07/23/19 at 14:30; Stop 07/23/19 at 14:31; Status DC Active Scripts Active Montelukast Sodium Tablet (Montelukast Sodium) 10 Mg Tablet 10 Mg PO QHS PRN Duoneb 0.5-3(2.5) Mg/3 Ml (Albuterol/Ipratropium) 3 Ml Ampul.neb 3 Ml NEB RTQID PRN Guaifenesin Dm Syrup (Guaifenesin/Dextromethorphan) 5 Ml Syrup 10 Ml PO PRN Q6HRS PRN Doxycycline Hyclate 100 Mg Tablet 100 Mg PO BID Reported Carvedilol (Carvedilol) 12.5 Mg Tablet 18.75 Mg PO BIDWMEALS Aspirin 81 Mg Tab.chew 1 Tab PO DAILY Losartan-Hctz 100-25 Mg Tab (Losartan/Hydrochlorothiazide) 1 Each Tablet 1 Tab PO DAILY Eliquis (Apixaban) 5 Mg Tablet 5 Mg PO BID Crestor (Rosuvastatin Calcium) 40 Mg Tablet 1 Tab PO DAILY Amlodipine Besylate 10 Mg Tablet 10 Mg PO DAILY Vitals/I & O Vital Sign - Last 24 Hours 07/22/19 07/22/19 07/22/19 07/22/19 15:59 16:00 16:48 19:45 Temp 98.2 98.2 Pulse 58 55 Resp 17 B/P (MAP) 166/71 (102) Pulse Ox 97 95 O2 Delivery Nasal Cannula Nasal Cannula Nasal Cannula O2 Flow Rate 3.0 3.0 3.0 07/22/19 07/22/19 07/22/19 07/22/19 19:45 20:00 20:01 20:02 Temp 98.2 98.2 Pulse 64 Resp 18 B/P (MAP) 133/59 (83) Pulse Ox 96 98 98 O2 Delivery Nasal Cannula Nasal Cannula Nasal Cannula O2 Flow Rate 3.0 3.0 3.0 3.0 07/23/19 07/23/19 07/23/19 07/23/19 00:00 00:09 04:00 04:25 Temp 97.8 98.0 97.8 98.0 Pulse 52 52 Resp 24 24 B/P (MAP) 142/58 (86) 153/58 (89) Pulse Ox 99 97 97 96 O2 Delivery BiPAP/CPAP BiPAP/CPAP BiPAP/CPAP BiPAP/CPAP 07/23/19 07/23/19 07/23/19 07/23/19 07:55 08:00 08:00 09:58 Temp 98.1 98.1 Pulse 44 57 Resp 24 B/P (MAP) 138/60 (86) 138/60 Pulse Ox 97 100 O2 Delivery Nasal Cannula BiPAP/CPAP Bi-pap O2 Flow Rate 3.0 07/23/19 07/23/19 07/23/19 09:58 11:58 12:00 Pulse 57 68 Resp 24 B/P (MAP) 138/60 145/62 (89) Pulse Ox 97 95 O2 Delivery Room Air Room Air Intake and Output 07/22/19 07/22/19 07/23/19 15:00 23:00 07:00 Intake Total 750 ml Output Total 975 ml 1100 ml Balance -225 ml -1100 ml LUCI LEIJA MD Jul 23, 2019 15:57
--- NOTE | 2019-07-23 16:14 | NUR ---
SS following for discharge planning. SS reviewed pt chart. Pt is from home and is currently on room air. Pt needing BIPAP machine for home. SS phoned and faxed order and clinical to [facility], ; fax [phone]. SS awaiting order confirmation from [facility] and will proceed accordingly. Pt's RN notified.
[2019-07-23 16:36] VITALS: BP 175/70
--- NOTE | 2019-07-23 16:40 | NUR ---
SS following up with discharge planning. SS received notification from [facility] that they have all clinical information needed to set pt up with BIPAP machine. [facility] SS verified that pt was discharging tonight. [facility] reported that they would contact pt tonight. Pt's RN notified.
--- NOTE | 2019-07-24 13:33 | DS ---
DATE OF DISCHARGE: 07/23/2019 ADMISSION DIAGNOSES: Respiratory failure. DISCHARGE DIAGNOSIS: Resolving respiratory failure, secondary to chronic obstructive pulmonary disease. HOSPITAL COURSE: The patient is a pleasant middle-aged male, who presented with respiratory failure secondary to chronic obstructive pulmonary disease. He was admitted. We gave him IV steroids, breathing treatments, oxygen and empiric IV antibiotics. We consulted Dr. Dover. Over the next couple of days, he returned to his baseline when I saw him and examined yesterday, was doing much better. Heart tones are normal. Lungs were clear. We discharged to home with close outpatient followup. DISPOSITION: Home. ACTIVITY: As tolerated. DIET: Low sodium. MEDICATIONS: Please see the MRAD. TOTAL TIME: 34 minutes. MARAL BARKSDALE DO DR: HÉCTOR/shasta JOB#: [id number] / [id number]
== END 2019-07-23 17:00 | disposition home or self-care (01) | DRG 177 ==
LOC: ER 08:58 → 1 WEST ICU 09:30
PROVIDERS: ADMIT Family Medicine; ATTEND Family Medicine
PROC: 5A09357 Assistance with Respiratory Ventilation, Less than 24 Consecutive Hours, Continuous Positive Airway Pressure (ICD-10-PCS; principal; 2019-07-21)
PROC: 5A09357 Assistance with Respiratory Ventilation, Less than 24 Consecutive Hours, Continuous Positive Airway Pressure (ICD-10-PCS; 2019-07-22)
PROC: 5A09357 Assistance with Respiratory Ventilation, Less than 24 Consecutive Hours, Continuous Positive Airway Pressure (ICD-10-PCS; 2019-07-23)
DX: J15.6 Pneumonia due to other Gram-negative bacteria (principal); J96.21 Acute and chronic respiratory failure with hypoxia; J96.22 Acute and chronic respiratory failure with hypercapnia; J98.11 Atelectasis; I48.20 Chronic atrial fibrillation, unspecified; J44.1 Chronic obstructive pulmonary disease with (acute) exacerbation; J84.9 Interstitial pulmonary disease, unspecified; E66.01 Morbid (severe) obesity due to excess calories; E78.5 Hyperlipidemia, unspecified; G47.33 Obstructive sleep apnea (adult) (pediatric); I07.1 Rheumatic tricuspid insufficiency; I10 Essential (primary) hypertension; I25.10 Atherosclerotic heart disease of native coronary artery without angina pectoris; Z68.35 Body mass index [BMI] 35.0-35.9, adult; Z82.49 Family history of ischemic heart disease and other diseases of the circulatory system; Z82.5 Family history of asthma and other chronic lower respiratory diseases; Z86.79 Personal history of other diseases of the circulatory system; Z87.01 Personal history of pneumonia (recurrent); Z87.891 Personal history of nicotine dependence; Z95.5 Presence of coronary angioplasty implant and graft; Z99.81 Dependence on supplemental oxygen
CPT/HCPCS: 36415; 36600; 71045; 71275; 80053; 82805; 83605; 83735; 83880; 84484; 85007; 85025; 85379; 85610; 87040; 87070; 87205; 87804; 93005; 93306; 94640; 94644; 94660; 94760; 96365; 96375; J0456; J0696; J1940; J2920; J2930; J3490; J7030; J7050; J7613; J7620; J7626; Q0144; Q9967; 99285-25; G0378

== ENCOUNTER → 2021-11-02 | Outpatient (CLI) | payer MEDICARE ==
[~2021-11-02] MED LIST changes: +AMLO-187 PO; -AMLO10TA8 PO; -VALS1TAB22 PO; +VALS1TAB23 PO
--- NOTE | 2021-11-02 13:41 | RAD ---
EXAM: Chest, abdomen and pelvis CT with intravenous contrast. HISTORY: Indeterminate liver lesion. Interstitial lung disease. TECHNIQUE: Computed tomographic images of the chest, abdomen and pelvis were obtained following the a dministration of intravenous contrast. Multiplanar reformatting was performed. *One or more of the following individualized dose reduction techniques were utilized for this examina tion: 1. Automated exposure control. 2. Adjustment of the mA and/or kV according to patient size. 3. Use of iterative reconstruction technique. COMPARISON: 07/21/2019 and 02/01/2016 . FINDINGS: Chest: The heart is normal in size. There is coronary artery calcification. There is calcif ied atherosclerotic plaque involving the aorta and aortic arch great vessels. The previously demonstr ated mediastinal an hilar lymphadenopathy is no longer seen. There is no pneumothorax or pleural effu carlos a. There is no infiltrate. There is linear scarring or atelectasis within the lateral inferior rig ht lower lobe and the lingula. There is no suspicious pulmonary nodule. There is no acute or suspicio us osseous finding. Abdomen and pelvis: There is no hepatic lesion on this noncontrast exam. The gallbladder, pancreas an d adrenal glands are unremarkable. There are granulomas within a normal sized spleen. The stomach is unremarkable. There is no hydronephrosis. There are multiple renal vascular calcifications. There is scarring within the inferior pole of the left kidney. There is no appendicitis. There is a large amount of stool throughout the colon. There is no evidence of bowel obstruction. There is a tiny fat-containing supraumbilical hernia. The bladder and prostate are unremarkable. There is aortobifemoral atherosclerosis and postoperative change involving the aor ta and right common iliac artery. There is no aortic aneurysm. Evaluation for stenosis is limited in the absence of contrast. There is no acute or suspicious osseous finding. There is lumbar hyperlordos is and grade 1 anterolisthesis with pars defects at L5-S1. IMPRESSION: 1. No acute thoracic finding or convincing evidence of interstitial lung disease. 2. No convincing liver lesion. Note is made that a liver protocol CT or MRI including postcontrast im aging may be useful if this concern for an occult lesion on this noncontrast exam. 3. Resolution of previously demonstrated mediastinal and hilar lymphadenopathy. 4. Inferior left renal cortical scarring. 5. Large amount of colonic stool. Correlate for constipation. 6. Aortobiiliac atherosclerosis and postoperative change involving the aorta and right common iliac a rtery. Electronically signed by: Monica Cuevas MD (11/02/2021 1:39 PM) [id number]
== END ==
LOC: CT 09:05
PROVIDERS: ATTEND Internal Medicine Critical Care Medicine
DX: J84.9 Interstitial pulmonary disease, unspecified (principal); I70.0 Atherosclerosis of aorta; M25.10 Fistula, unspecified joint; K43.9 Ventral hernia without obstruction or gangrene; K42.9 Umbilical hernia without obstruction or gangrene; I71.4 Abdominal aortic aneurysm, without rupture; K56.41 Fecal impaction; N28.89 Other specified disorders of kidney and ureter; M40.46 Postural lordosis, lumbar region; M43.17 Spondylolisthesis, lumbosacral region
CPT/HCPCS: 71250; 74176